=== PATIENT | female | born 1955 | race Caucasian/White ===

== ENCOUNTER 2016-12-21 18:30 | Inpatient (IN) | payer BC ==
--- NOTE | 2016-12-21 18:43 | ED ---
General Adult HPI - General Stated complaint: NVD Time Seen by Provider: 12/21/16 18:37 Source: RN notes reviewed, old records reviewed - History of Present Illness Initial comments: This is a 61-year-old female here for evaluation. The patient is here for reevaluation nausea vomiting abdominal pain. Patient does have history of cholecystectomy, other medical issues. No change in medications. No fevers. No diarrhea. No blood in her vomit. Patient states vomiting all day, not feeling well. No travel history no sick contacts. - Related Data Home Medications Medication Instructions Recorded Confirmed [facility]vs Allergy Medication Otc 1 tab PO DAILY 12/21/16 12/21/16 Ferrous Sulfate [Feosol] 325 mg PO DAILY 12/21/16 12/21/16 Losartan [Cozaar] 50 mg PO DAILY 12/21/16 12/21/16 Vitamin B Complex 1 cap PO DAILY 12/21/16 12/21/16 Allergies Allergy/AdvReac Type Severity Reaction Status Date / Time No Known Allergies Allergy Verified 12/21/16 18:56 Review of Systems ROS Statement: Those systems with pertinent positive or pertinent negative responses have been documented in the HPI. ROS Other: All systems not noted in ROS Statement are negative. Past Medical History Past Medical History: Cancer, Hypertension, Osteoarthritis (OA) Additional Past Medical History / Comment(s): BASAL CELL CA. History of Any Multi-Drug Resistant Organisms: None Reported Past Surgical History: Cholecystectomy, Joint Replacement, Tonsillectomy Additional Past Surgical History / Comment(s): BILATERAL KNEE REPLACED. JAW SURGERY. Past Anesthesia/Blood Transfusion Reactions: Motion Sickness, Postoperative Nausea & Vomiting (PONV) Smoking Status: Former smoker Past Alcohol Use History: None Reported Past Drug Use History: None Reported General Exam General appearance: alert, in no apparent distress Head exam: Present: atraumatic, normocephalic, normal inspection Eye exam: Present: normal appearance, PERRL, EOMI. Absent: scleral icterus, conjunctival injection, periorbital swelling ENT exam: Present: normal exam, mucous membranes moist Neck exam: Present: normal inspection. Absent: tenderness, meningismus, lymphadenopathy Respiratory exam: Present: normal lung sounds bilaterally. Absent: respiratory distress, wheezes, rales, rhonchi, stridor Cardiovascular Exam: Present: regular rate, normal rhythm, normal heart sounds. Absent: systolic murmur, diastolic murmur, rubs, gallop, clicks GI/Abdominal exam: Present: soft, normal bowel sounds. Absent: distended, tenderness, guarding, rebound, rigid Extremities exam: Present: normal inspection, full ROM, normal capillary refill. Absent: tenderness, pedal edema, joint swelling, calf tenderness Back exam: Present: normal inspection Neurological exam: Present: alert, oriented X3, CN II-XII intact Psychiatric exam: Present: normal affect, normal mood Skin exam: Present: warm, dry, intact, normal color. Absent: rash Course Vital Signs 12/21/16 18:44 Temperature 97.0 F L Pulse Rate 88 Respiratory 18 Rate Blood Pressure 106/78 O2 Sat by Pulse 99 Oximetry - Reevaluation(s) Reevaluation #1: 12/21/16 20:14 patient's pain is improved, nausea persists EKG Findings - EKG Comments: EKG Findings:: EKG shows normal sinus rhythm rate of 69, MO 132, QRS 80, QTC 426 Medical Decision Making - Medical Decision Making 61 female ER for evaluation abdominal pain with nausea and vomiting, positive small bowel obstruction, patient will be admitted for surgical consult and evaluation, patient is unsure of surgeon who performed prior surgery. - Lab Data Result diagrams: 12/21/16 18:34 12/21/16 18:34 Lab Results 12/21/16 12/21/16 12/21/16 Range/Units 18:34 18:34 18:34 WBC 15.5 H (3.8-10.6) k/uL RBC 5.47 H (3.80-5.40) m/uL Hgb 17.0 H (11.4-16.0) gm/dL Hct 51.5 H (34.0-46.0) % MCV 94.2 (80.0-100.0) fL MCH 31.2 (25.0-35.0) pg MCHC 33.1 (31.0-37.0) g/dL RDW 13.3 (11.5-15.5) % Plt Count 433 (150-450) k/uL PT (9.0-12.0) sec INR (<1.1) APTT (22.0-30.0) sec Sodium 141 (137-145) mmol/L Potassium 5.2 H (3.5-5.1) mmol/L Chloride 104 (98-107) mmol/L Carbon Dioxide 22 (22-30) mmol/L Anion Gap 15 mmol/L BUN 23 H (7-17) mg/dL Creatinine 0.99 (0.52-1.04) mg/dL Est GFR (MDRD) Af Amer >60 (>60 ml/min/1.73 sqM) Est GFR (MDRD) Non-Af 57 (>60 ml/min/1.73 sqM) Glucose 142 H (74-99) mg/dL Plasma Lactic Acid Raymond (0.7-2.0) mmol/L Calcium 9.6 (8.4-10.2) mg/dL Phosphorus 3.9 (2.5-4.5) mg/dL Magnesium 1.8 (1.6-2.3) mg/dL Total Bilirubin 0.8 (0.2-1.3) mg/dL AST 151 H (14-36) U/L ALT 145 H (9-52) U/L Alkaline Phosphatase 103 (38-126) U/L Total Creatine Kinase 45 (30-135) U/L CK-MB (CK-2) 1.1 (0.0-2.4) ng/mL CK-MB (CK-2) Rel Index 2.4 Troponin I <0.012 (0.000-0.034) ng/mL Total Protein 7.6 (6.3-8.2) g/dL Albumin 4.6 (3.5-5.0) g/dL 12/21/16 12/21/16 Range/Units 18:34 18:34 WBC (3.8-10.6) k/uL RBC (3.80-5.40) m/uL Hgb (11.4-16.0) gm/dL Hct (34.0-46.0) % MCV (80.0-100.0) fL MCH (25.0-35.0) pg MCHC (31.0-37.0) g/dL RDW (11.5-15.5) % Plt Count (150-450) k/uL PT 9.9 (9.0-12.0) sec INR 1.0 (<1.1) APTT 21.0 L (22.0-30.0) sec Sodium (137-145) mmol/L Potassium (3.5-5.1) mmol/L Chloride (98-107) mmol/L Carbon Dioxide (22-30) mmol/L Anion Gap mmol/L BUN (7-17) mg/dL Creatinine (0.52-1.04) mg/dL Est GFR (MDRD) Af Amer (>60 ml/min/1.73 sqM) Est GFR (MDRD) Non-Af (>60 ml/min/1.73 sqM) Glucose (74-99) mg/dL Plasma Lactic Acid Raymond 3.9 H* (0.7-2.0) mmol/L Calcium (8.4-10.2) mg/dL Phosphorus (2.5-4.5) mg/dL Magnesium (1.6-2.3) mg/dL Total Bilirubin (0.2-1.3) mg/dL AST (14-36) U/L ALT (9-52) U/L Alkaline Phosphatase (38-126) U/L Total Creatine Kinase (30-135) U/L CK-MB (CK-2) (0.0-2.4) ng/mL CK-MB (CK-2) Rel Index Troponin I (0.000-0.034) ng/mL Total Protein (6.3-8.2) g/dL Albumin (3.5-5.0) g/dL - Radiology Data Radiology results: report reviewed (CT abdomen and pelvis was positive for small bowel obstruction), image reviewed Disposition Clinical Impression: Dehydration, SBO (small bowel obstruction) Disposition: ADMITTED IP TO THIS [facility] Condition: Fair Referrals: Aditya Hernandez MD [STAFF PHYSICIAN] - 1-2 days
[2016-12-21] MEDS ORDERED: MORPHINE SULFATE 4 MG/ML SYRINGE IV STA (18:49)
[2016-12-21] MEDS ORDERED: SODIUM CHLORIDE 0.9% 500 ML IV STA (18:49)
[2016-12-21] MEDS ORDERED: ONDANSETRON 4 MG/2 ML VIAL IVP STA (18:49)
[2016-12-21] MEDS ORDERED: PANTOPRAZOLE 40 MG/10 ML VIAL IVP STA (18:50)
[2016-12-21] MEDS ORDERED: RX INFO: IV CONTRAST WAS GIVEN 1 EACH MISC MISCELLANE PRN (18:50)
[2016-12-21] MEDS: SODIUM CHLORIDE 0.9% 1,000 ML IV STA (18:57)
[2016-12-21 19:22] LABS: ALT 145 U/L (9-52); AST 151 U/L (14-36); Alkaline Phosphatase 103 U/L (38-126); Anion Gap 15 mmol/L; Blood Urea Nitrogen 23 mg/dL (7-17); Calcium 9.6 mg/dL (8.4-10.2); Carbon Dioxide 22 mmol/L (22-30); Chloride 104 mmol/L (98-107); Glucose 142 mg/dL (74-99); Magnesium 1.8 mg/dL (1.6-2.3); Non-African American GFR(MDRD) 57 (>60 ml/min/1.73 sqM); Phosphorous 3.9 mg/dL (2.5-4.5); Potassium 5.2 mmol/L (3.5-5.1); Sodium 141 mmol/L (137-145); Total Bilirubin 0.8 mg/dL (0.2-1.3); Total Protein 7.6 g/dL (6.3-8.2)
[2016-12-21 19:36] LABS: Creatine Kinase 45 U/L (30-135)
[2016-12-21 19:39] LABS: CH 30.1; HCT 51.5 % (34.0-46.0); HDW 2.05; Immature Gran Flag Marked; MCH 31.2 pg (25.0-35.0); MCHC 33.1 g/dL (31.0-37.0); MCV 94.2 fL (80.0-100.0); Mean Platelet Volume 7.2; RBC 5.47 m/uL (3.80-5.40); RDW 13.3 % (11.5-15.5); WBC 15.5 k/uL (3.8-10.6)
[2016-12-21 19:41] LABS: Prothrombin Time 9.9 sec (9.0-12.0)
[2016-12-21 19:48] LABS: Creatine Kinase MB 1.1 ng/mL (0.0-2.4); Troponin I <0.012 ng/mL (0.000-0.034)
--- NOTE | 2016-12-21 19:52 | CT ---
EXAMINATION TYPE: CT abdomen pelvis w con DATE OF EXAM: 12/21/2016 7:32 PM COMPARISON: NONE HISTORY: Nausea and vomiting today. CT DLP: 728.60 mGycm Automated exposure control for dose reduction was used. TECHNIQUE: Helical acquisition of images was performed from the lung bases through the pelvis. CONTRAST: Performed without Oral Contrast and with IV Contrast, patient injected with 100 mL of Omnipaque 300. FINDINGS: The lung bases are clear. There is no pleural effusion. Heart size is normal. Liver spleen pancreas appear normal. There are clips from cholecystectomy. There is no adrenal mass. Kidneys show satisfactory contrast opacification. There is no hydronephrosis. There are multiple dist ended fluid-filled loops of small bowel in the mid abdomen. There is some dilation of the ileum with fecal material. Small bowel measures up to 4 cm. There is some wall thickening involving the terminal ileum extending to the ileocecal valve. The most distal terminal ileum is not dilated. There is a sh ort segment of narrowing involving the distal ileum that is approximately 5 cm from the ileocecal óscar ve. The bony structures appear intact. 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 There is no signi ficant spondylolisthesis. IMPRESSION: THERE IS EVIDENCE OF A MECHANICAL DISTAL SMALL BOWEL OBSTRUCTION. THERE IS EVIDENCE OF A STRICTURE OF THE DISTAL ILEUM BEST SEEN ON THE CORONAL IMAGE 37. THERE IS DISTAL ILEUM WALL THICKENING THAT COULD RELATE TO INFLAMMATORY BOWEL DISEASE. FOLLOW-UP IS RECOMMENDED. APPENDIX IS NOT SEEN. THERE IS NO SI GN OF APPENDICITIS.
[2016-12-21 20:09] LABS: Add Differential Manual Differential
[2016-12-21 20:12] LABS: Nucleated Red Blood Cells 0 /100 WBC (0-0); Total Cells Counted 100
[2016-12-21] MEDS ORDERED: MORPHINE SULFATE 4 MG/ML SYRINGE IVP PRN (20:12)
[2016-12-21] MEDS ORDERED: MORPHINE SULFATE 4 MG/ML SYRINGE IVP STA (20:12)
[2016-12-21] MEDS ORDERED: ONDANSETRON 4 MG/2 ML VIAL IVP PRN (20:12)
[2016-12-21 20:13] LABS: Manual Review Performed; RBC Morphology Normal
[2016-12-21] MEDS ORDERED: SODIUM CHLORIDE 0.9% 1,000 ML IV ONE (20:14)
[2016-12-22 06:55] LABS: Appearance,Urine Clear (Clear); Bilirubin,Urine Negative (Negative); Glucose,Urine (UA) Negative (Negative); Ketones,Urine Negative (Negative); Leukocyte Esterase,Urine Negative (Negative); Mucus,Urine Rare /hpf; Nitrite,Urine Negative (Negative); Particle Count 4768; Protein,Urine Trace (Negative); RBC,Urine 4 /hpf (0-5); Specific Gravity,Urine 1.025 (1.001-1.035); Squamous Epithelial Cell,Urine 1 /hpf (0-4); UA Billing (MACRO vs. MICRO) MICRO; Urobilinogen,Urine <2.0 mg/dL (<2.0); WBC,Urine 1 /hpf (0-5)
[2016-12-22] MEDS: PANTOPRAZOLE 40 MG/10 ML VIAL IVP SCH (07:46)
[2016-12-22] MEDS ORDERED: ACETAMINOPHEN TAB 325 MG TAB PO PRN (14:07)
--- NOTE | 2016-12-22 14:25 | P.GSCN ---
History of Present Illness Consult date: 12/22/16 Reason for Consult: Abdominal pain, nausea vomiting History of present illness: The patient's a 61-year-old female who began feeling poorly yesterday morning when she woke. She had very bloated and then developed nausea and vomiting. No fevers or chills. No recent change in bowel habits. She does tend to have loose stools. This is been worked up in the past and she had EGD and colonoscopy which were unremarkable. She's never had anything like this in the past. Through the night she had several bowel movements and is feeling much better today. The only previous abdominal surgery was a laparoscopic cholecystectomy. Review of Systems All systems: negative Past Medical History Past Medical History: Cancer, Hypertension, Osteoarthritis (OA) Additional Past Medical History / Comment(s): BASAL CELL CA. History of Any Multi-Drug Resistant Organisms: None Reported Past Surgical History: Cholecystectomy, Joint Replacement, Tonsillectomy Additional Past Surgical History / Comment(s): BILATERAL KNEE REPLACED. JAW SURGERY. Past Anesthesia/Blood Transfusion Reactions: Motion Sickness, Postoperative Nausea & Vomiting (PONV) Past Psychological History: No Psychological Hx Reported Smoking Status: Former smoker Past Alcohol Use History: None Reported Past Drug Use History: None Reported - Past Family History Mother Family Medical History: Dementia Medications and Allergies Home Medications Medication Instructions Recorded Confirmed Type [facility]vs Allergy Medication Otc 1 tab PO DAILY 12/21/16 12/21/16 History Ferrous Sulfate [Feosol] 325 mg PO DAILY 12/21/16 12/21/16 History Losartan [Cozaar] 50 mg PO DAILY 12/21/16 12/21/16 History Vitamin B Complex 1 cap PO DAILY 12/21/16 12/21/16 History Allergies Allergy/AdvReac Type Severity Reaction Status Date / Time No Known Allergies Allergy Verified 12/21/16 18:56 Surgical - Exam Osteopathic Statement: *. No significant issues noted on an osteopathic structural exam other than those noted in the History and Physical/Consult. Vital Signs Temp Pulse Resp BP Pulse Ox 97.0 F L 88 18 106/78 99 12/21/16 18:44 12/21/16 18:44 12/21/16 18:44 12/21/16 18:44 12/21/16 18:44 - General well developed, well nourished, no distress - Eyes normal ocular movement - ENT normal mucosa - Neck trachea midline, no lymphadectomy - Respiratory normal respiratory effort, clear to auscultation absent: wheezing - Cardiovascular Rhythm: regular - Abdomen Abdomen: soft, non tender, bowel sounds, no guarding, no rigid, no rebound, no distended Results - Labs 12/21/16 18:34 12/21/16 18:34 Abnormal Lab Results - Last 24 Hours (Table) 12/21/16 12/21/16 12/21/16 Range/Units 18:34 18:34 18:34 WBC 15.5 H (3.8-10.6) k/uL RBC 5.47 H (3.80-5.40) m/uL Hgb 17.0 H (11.4-16.0) gm/dL Hct 51.5 H (34.0-46.0) % Neutrophils # (Manual) 13.8 H (1.3-7.7) k/uL Lymphocytes # (Manual) 0.5 L (1.0-4.8) k/uL Monocytes # (Manual) 1.2 H (0-1.0) k/uL APTT (22.0-30.0) sec Potassium 5.2 H (3.5-5.1) mmol/L BUN 23 H (7-17) mg/dL Glucose 142 H (74-99) mg/dL Plasma Lactic Acid Raymond 3.9 H* (0.7-2.0) mmol/L AST 151 H (14-36) U/L ALT 145 H (9-52) U/L Urine Protein (Negative) Urine Blood (Negative) Urine Mucus (None) /hpf 12/21/16 12/22/16 Range/Units 18:34 05:50 WBC (3.8-10.6) k/uL RBC (3.80-5.40) m/uL Hgb (11.4-16.0) gm/dL Hct (34.0-46.0) % Neutrophils # (Manual) (1.3-7.7) k/uL Lymphocytes # (Manual) (1.0-4.8) k/uL Monocytes # (Manual) (0-1.0) k/uL APTT 21.0 L (22.0-30.0) sec Potassium (3.5-5.1) mmol/L BUN (7-17) mg/dL Glucose (74-99) mg/dL Plasma Lactic Acid Raymond (0.7-2.0) mmol/L AST (14-36) U/L ALT (9-52) U/L Urine Protein Trace H (Negative) Urine Blood Trace H (Negative) Urine Mucus Rare H (None) /hpf Microbiology - Last 24 Hours (Table) 12/22/16 05:50 Urine Culture - Preliminary Urine,Voided Diabetes panel 12/21/16 Range/Units 18:34 Sodium 141 (137-145) mmol/L Potassium 5.2 H (3.5-5.1) mmol/L Chloride 104 (98-107) mmol/L Carbon Dioxide 22 (22-30) mmol/L BUN 23 H (7-17) mg/dL Creatinine 0.99 (0.52-1.04) mg/dL Glucose 142 H (74-99) mg/dL Calcium 9.6 (8.4-10.2) mg/dL AST 151 H (14-36) U/L ALT 145 H (9-52) U/L Alkaline Phosphatase 103 (38-126) U/L Total Protein 7.6 (6.3-8.2) g/dL Albumin 4.6 (3.5-5.0) g/dL Calcium panel 12/21/16 Range/Units 18:34 Calcium 9.6 (8.4-10.2) mg/dL Phosphorus 3.9 (2.5-4.5) mg/dL Albumin 4.6 (3.5-5.0) g/dL Pituitary panel 12/21/16 Range/Units 18:34 Sodium 141 (137-145) mmol/L Potassium 5.2 H (3.5-5.1) mmol/L Chloride 104 (98-107) mmol/L Carbon Dioxide 22 (22-30) mmol/L BUN 23 H (7-17) mg/dL Creatinine 0.99 (0.52-1.04) mg/dL Glucose 142 H (74-99) mg/dL Calcium 9.6 (8.4-10.2) mg/dL Adrenal panel 12/21/16 Range/Units 18:34 Sodium 141 (137-145) mmol/L Potassium 5.2 H (3.5-5.1) mmol/L Chloride 104 (98-107) mmol/L Carbon Dioxide 22 (22-30) mmol/L BUN 23 H (7-17) mg/dL Creatinine 0.99 (0.52-1.04) mg/dL Glucose 142 H (74-99) mg/dL Calcium 9.6 (8.4-10.2) mg/dL Total Bilirubin 0.8 (0.2-1.3) mg/dL AST 151 H (14-36) U/L ALT 145 H (9-52) U/L Alkaline Phosphatase 103 (38-126) U/L Total Protein 7.6 (6.3-8.2) g/dL Albumin 4.6 (3.5-5.0) g/dL - Imaging CT scan - abdomen: report reviewed, image reviewed Assessment and Plan (1) SBO (small bowel obstruction) Status: Acute Plan: This appears to be resolving on its own. We'll start her on a clear liquid diet. If she is able to tolerate that we'll advance her to a soft diet in the morning. Further recommendations to follow.
--- NOTE | 2016-12-22 16:52 | P.HPIM ---
History of Present Illness H&P Date: 12/22/16 Chief Complaint: Abdominal pain This is a pleasant 61-year-old lady patient of Dr. Rafi Hernandez, underlying history of hypertension previous cholecystectomy, admitted to the hospital secondary to nausea and vomiting, obstipation, and was noted to be hypotension, she started getting sick one day prior to admission, was noted to have abdominal pain upon awakening with persistent nausea and vomiting thereafter. She was seen in emergency room with oral contrast studies of the abdomen and pelvis showing evidence off mechanical distal small bowel obstruction with evidence of stricture of the distal ileum, distal ileum wall thickening be related to inflammatory bowel disease, patient was subsequently admitted and was placed nothing by mouth with consultations to Dr. Hong general surgery. She was stabilized initially as she presented with hypotension, fluid IV for hydration purposes was given,. Patient denies any sick contacts, creatinine on entry was 0.99, elevated AST 151, elevated ALT 145 normal alkaline phosphatase Review of Systems Constitutional: Reports as per HPI, Denies anorexia, Denies chills, Denies chronic headaches, Denies chronic pain, Denies daytime sleepiness, Denies fatigue, Denies fever, Denies lethargy, Denies malaise, Denies night sweats, Denies poor appetite, Denies sweats, Denies weakness, Denies weight gain, Denies weight loss Ears, nose, mouth and throat: Reports as per HPI, Denies ant. neck pain, Denies bleeding gums, Denies dental pain, Denies dysphagia, Denies epistaxis, Denies headache, Denies hoarseness, Denies mouth pain, Denies nasal congestion, Denies nasal discharge, Denies neck fullness/pressure, Denies neck lump, Denies nose pain, Denies odynophagia, Denies post-nasal drip, Denies sinus pain, Denies sinus pressure, Denies swelling in mouth, Denies swelling in throat, Denies sore throat, Denies vertigo, Denies voice changes Cardiovascular: Reports as per HPI, Denies chest pain, Denies claudication, Denies decreased exercise tolerance, Denies dyspnea on exertion, Denies edema, Denies high blood pressure, Denies irregular heart beat, Denies leg edema, Denies lightheadedness, Denies orthopnea, Denies palpitations, Denies paroxysmal nocturnal dyspnea, Denies phlebitis, Denies rapid heart beat, Denies shortness of breath, Denies syncope Respiratory: Reports as per HPI, Denies congestion, Denies cough, Denies cough with sputum, Denies dyspnea, Denies excessive sputum, Denies hemoptysis, Denies home oxygen, Denies pain, Denies pain on inspiration, Denies pleurisy, Denies respiratory infections, Denies sleep apnea, Denies snoring, Denies wheezing Gastrointestinal: Reports as per HPI, Reports abdominal pain, Reports bloating, Reports change in bowel habits, Reports constipation, Reports indigestion, Reports nausea, Reports vomiting, Denies belching, Denies BRBPR, Denies coffee ground emesis, Denies diarrhea, Denies dyspepsia, Denies early satiety, Denies excessive gas, Denies heartburn, Denies hematemesis, Denies hematochezia, Denies jaundice, Denies lactose intolerance, Denies loss of appetite, Denies melena Genitourinary: Reports as per HPI, Denies abnormal vaginal bleeding, Denies decreased libido, Denies difficulty conceiving, Denies difficulty voiding, Denies dysmenorrhea, Denies dyspareunia, Denies dysuria, Denies flank pain, Denies genital sores, Denies hematuria, Denies hot flashes, Denies incomplete emptying, Denies kidney stones, Denies menorrhagia, Denies mixed incontinence, Denies nocturia, Denies pelvic pain, Denies post void dribbling, Denies , Denies prolapse symptoms, Denies stress incontinence, Denies urge incontinence , Denies urgency, Denies urinary frequency, Denies vaginal discharge, Denies vaginal dryness, Denies vaginal itching, Denies vaginal odor Menstruation: Reports as per HPI, Denies amenorrhea, Denies amenorrhea on BC, Denies currently menstrual, Denies cycle < 21 days, Denies cycle > 35 days, Denies cycle variable, Denies menses 1-7 days, Denies menses 8 or > days, Denies menses variable, Denies period heavy, Denies period light, Denies period normal, Denies period spotting, Denies post hysterectomy, Denies postmenopausal , Denies premenarcheal Musculoskeletal: Reports as per HPI, Denies arm numbness/tingling, Denies atrophy, Denies fractures, Denies frequent falls, Denies gait dysfunction, Denies hot joints, Denies leg numbness/tingling, Denies limitation of motion, Denies loss of height, Denies low back pain, Denies morning stiffness, Denies muscle cramps, Denies muscle weakness, Denies myalgias, Denies neck pain, Denies neck stiffness, Denies prior amputations, Denies redness of joints, Denies shooting arm pain, Denies shooting leg pain Integumentary: Reports as per HPI Neurological: Reports as per HPI, Denies aphasia, Denies ataxia, Denies balance difficulties, Denies burning pain, Denies change in mentation, Denies change in smell/taste, Denies change in speech, Denies confusion, Denies convulsions, Denies double vision, Denies gait dysfunction, Denies head injury, Denies headaches, Denies hearing difficulties, Denies lack of coordination, Denies loss of vision, Denies memory loss, Denies migraines, Denies motor disturbance, Denies numbness, Denies paralysis, Denies paresthesias, Denies seizures, Denies sensory deficit, Denies spasticity, Denies syncope, Denies tic, Denies tingling , Denies transient paralysis, Denies tremors, Denies vertigo, Denies weakness, Denies visual changes Psychiatric: Reports as per HPI, Denies anhedonia, Denies anxiety, Denies anxiety attacks, Denies change in appetite, Denies change in libido, Denies change in sleep habits, Denies confusion, Denies depression, Denies difficulty concentrating, Denies disorientation, Denies hallucinations, Denies hopelessness , Denies hypersomnia, Denies insomnia, Denies irritability, Denies memory loss, Denies mood swings, Denies paranoia, Denies sadness/tearfulness, Denies sleep disturbances, Denies suicidal ideation Endocrine: Reports as per HPI, Denies cold intolerance, Denies deepening of the voice, Denies excessive sweating, Denies excessive thirst, Denies fatigue, Denies flushing, Denies heat intolerance, Denies high blood sugars, Denies increase in ring/shoe/hat size, Denies low blood sugars, Denies nocturia, Denies palpitations, Denies polydipsia, Denies polyphagia, Denies polyuria, Denies proptosis, Denies recent glucocorticoid use, Denies thyroid mass, Denies weight change Hematologic/Lymphatic: Reports as per HPI, Denies easy bleeding, Denies easy bruising, Denies lymphadenopathy, Denies lymphedema, Denies thrombophilia Allergic/Immunologic: Reports as per HPI, Denies allergic rhinitis, Denies anaphylaxis, Denies angioedema, Denies gluten intolerance, Denies persistent infections, Denies seasonal allergies, Denies urticaria, Denies wheezing Past Medical History Past Medical History: Cancer, Hypertension, Osteoarthritis (OA) Additional Past Medical History / Comment(s): BASAL CELL CA. History of Any Multi-Drug Resistant Organisms: None Reported Past Surgical History: Cholecystectomy, Joint Replacement, Tonsillectomy Additional Past Surgical History / Comment(s): BILATERAL KNEE REPLACED. JAW SURGERY. Past Anesthesia/Blood Transfusion Reactions: Motion Sickness, Postoperative Nausea & Vomiting (PONV) Past Psychological History: No Psychological Hx Reported Smoking Status: Former smoker Past Alcohol Use History: None Reported Past Drug Use History: None Reported - Past Family History Mother Family Medical History: Dementia Medications and Allergies Home Medications Medication Instructions Recorded Confirmed Type Cvs Allergy Medication Otc 1 tab PO DAILY 12/21/16 12/21/16 History Ferrous Sulfate [Feosol] 325 mg PO DAILY 12/21/16 12/21/16 History Losartan [Cozaar] 50 mg PO DAILY 12/21/16 12/21/16 History Vitamin B Complex 1 cap PO DAILY 12/21/16 12/21/16 History Allergies Allergy/AdvReac Type Severity Reaction Status Date / Time No Known Allergies Allergy Verified 12/21/16 18:56 Physical Exam Vitals: Vital Signs Temp Pulse Pulse Resp BP BP Pulse Ox 12/22/16 15:00 97.5 F L 73 19 114/58 94 L 12/22/16 07:00 99.1 F 83 19 111/52 95 12/21/16 23:00 97.8 F 83 16 121/71 94 L 12/21/16 21:11 86 18 104/58 97 12/21/16 20:23 77 18 102/68 96 12/21/16 18:44 97.0 F L 88 18 106/78 99 Intake and Output 12/22/16 12/22/16 12/22/16 06:59 14:59 22:59 Other: # Voids 1 2 3 # Bowel Movements 2 - Constitutional General appearance: cooperative, no acute distress - EENT Eyes: anicteric sclerae, EOMI, PERRLA, dentition normal, normal appearance ENT: NA/AT, normal oropharynx - Neck Neck: no lymphadenopathy, normal ROM, no other, no rigidity, no stridor, no thyromegaly - Respiratory Respiratory: bilateral: CTA, negative: diminished, dullness, rales, rhonchi, wheezing - Cardiovascular Rhythm: regular Heart sounds: normal: S1, S2 Abnormal Heart Sounds: no systolic murmur, no diastolic murmur, no rub, no S3 Gallop, no S4 Gallop, no click, no other - Gastrointestinal General gastrointestinal: decreased bowel sounds, soft, tenderness - Integumentary Integumentary: normal, normal turgor - Neurologic Neurologic: CNII-XII intact - Musculoskeletal Musculoskeletal: gait normal, strength equal bilaterally - Psychiatric Psychiatric: A&O x's 3, appropriate affect, intact judgment & insight Results CBC & Chem 7: 12/21/16 18:34 12/21/16 18:34 Labs: Abnormal Lab Results - Last 24 Hours (Table) 12/21/16 12/21/16 12/21/16 Range/Units 18:34 18:34 18:34 WBC 15.5 H (3.8-10.6) k/uL RBC 5.47 H (3.80-5.40) m/uL Hgb 17.0 H (11.4-16.0) gm/dL Hct 51.5 H (34.0-46.0) % Neutrophils # (Manual) 13.8 H (1.3-7.7) k/uL Lymphocytes # (Manual) 0.5 L (1.0-4.8) k/uL Monocytes # (Manual) 1.2 H (0-1.0) k/uL APTT (22.0-30.0) sec Potassium 5.2 H (3.5-5.1) mmol/L BUN 23 H (7-17) mg/dL Glucose 142 H (74-99) mg/dL Plasma Lactic Acid Raymond 3.9 H* (0.7-2.0) mmol/L AST 151 H (14-36) U/L ALT 145 H (9-52) U/L Urine Protein (Negative) Urine Blood (Negative) Urine Mucus (None) /hpf 12/21/16 12/22/16 Range/Units 18:34 05:50 WBC (3.8-10.6) k/uL RBC (3.80-5.40) m/uL Hgb (11.4-16.0) gm/dL Hct (34.0-46.0) % Neutrophils # (Manual) (1.3-7.7) k/uL Lymphocytes # (Manual) (1.0-4.8) k/uL Monocytes # (Manual) (0-1.0) k/uL APTT 21.0 L (22.0-30.0) sec Potassium (3.5-5.1) mmol/L BUN (7-17) mg/dL Glucose (74-99) mg/dL Plasma Lactic Acid Raymond (0.7-2.0) mmol/L AST (14-36) U/L ALT (9-52) U/L Urine Protein Trace H (Negative) Urine Blood Trace H (Negative) Urine Mucus Rare H (None) /hpf Microbiology - Last 24 Hours (Table) 12/22/16 05:50 Urine Culture - Preliminary Urine,Voided Thrombosis Risk Factor Assmnt - DVT/VTE Prophylaxis DVT/VTE Prophylaxis: Pharmacologic Prophylaxis ordered - Choose All That Apply Any of the Below Risk Factors Present?: Yes Each Factor Represents 1 point: Varicose veins Other Risk Factors: Yes Each Risk Factor Represents 2 Points: Age 61-74 years Other congenital or acquired thrombophilia - If yes, enter type in comment: No Thrombosis Risk Factor Assessment Total Risk Factor Score: 3 Thrombosis Risk Factor Assessment Level: Moderate Risk Assessment and Plan Plan: 1. Abdominal pain with small bowel obstruction involving a mechanical distal small bowel obstruction with evidence of strictures of the distal ileum with possible inflammatory bowel disease, no signs of appendicitis, conservative measures treatment made at this time, she has shown spontaneous resolution of abdominal distention and abdominal pain, bowel movements and flat this has been passed since her admission. no plans for general surgery to receive with any surgical intervention unless she decompensates further, investigation her last colonoscopy was in [address] Ortiz. 2. Evidence of stricture at the distal ileum with distal ileal wall thickening could be related to inflammatory bowel disease, colonoscopy can be done to evaluate this further once stabilized 3. Hypotension with dehydration, hemodynamic instability secondary to upper GI losses, patient requires IV hydration and he stabilized 4. Hypertension losartan is on hold secondary to hypotension. Losartan in the morning 5. Elevated liver function AST and ALT, with normal alkaline phosphatase test this will be monitored, patient might need hepatitis panel
[2016-12-22] MEDS: ENOXAPARIN 40 MG/0.4 ML SYRINGE SQ SCH (17:33)
[2016-12-23 07:35] VITALS: PULSE 69
[2016-12-23 08:38] LABS: Basophils % (A) 0 %; CH 30.4; CHCM 32.9; Eosinophils # (A) 0.1 k/uL (0-0.7); Eosinophils % (A) 3 %; HDW 2.19; Luc # (Auto) 0.13; Luc % (Auto) 3; Lymphocytes % (A) 19 %; MCH 30.5 pg (25.0-35.0); MCHC 32.8 g/dL (31.0-37.0); MCV 92.9 fL (80.0-100.0); Mean Platelet Volume 6.5; Monocytes # (A) 0.3 k/uL (0-1.0); Monocytes % (A) 7 %; Neutrophils # (A) 3.5 k/uL (1.3-7.7); Neutrophils % (A) 69 %; RBC 3.77 m/uL (3.80-5.40); RDW 13.3 % (11.5-15.5); WBC 5.1 k/uL (3.8-10.6); WBC (Perox) 5.44
[2016-12-23 08:39] LABS: HGB 11.5 gm/dL (11.4-16.0)
[2016-12-23 08:48] LABS: ALT 57 U/L (9-52); AST 23 U/L (14-36); Alkaline Phosphatase 51 U/L (38-126); Anion Gap 7 mmol/L; Blood Urea Nitrogen 11 mg/dL (7-17); Carbon Dioxide 20 mmol/L (22-30); Chloride 112 mmol/L (98-107); Glucose 70 mg/dL (74-99); Non-African American GFR(MDRD) >60 (>60 ml/min/1.73 sqM); Potassium 3.8 mmol/L (3.5-5.1); Sodium 139 mmol/L (137-145); Total Bilirubin 0.5 mg/dL (0.2-1.3); Total Protein 4.9 g/dL (6.3-8.2)
[2016-12-23] MEDS ORDERED: LOSARTAN 50 MG TAB PO SCH (09:00)
[2016-12-23] MEDS: PANTOPRAZOLE 40 MG/10 ML VIAL IVP SCH (09:04)
[2016-12-23] MEDS: ENOXAPARIN 40 MG/0.4 ML SYRINGE SQ SCH (09:04)
--- NOTE | 2016-12-23 10:14 | P.PN ---
Subjective Principal diagnosis: small bowel obstruction The patient is feeling much better. No further nausea or vomiting. She is stooling, and is passing corn kernels. Has been worked up for possible IBD, but was felt to be too old for new onset crohns disease. Objective - Vital Signs Vital signs: Vital Signs Temp 97.2 F L 12/23/16 07:00 Pulse 69 12/23/16 07:00 Resp 18 12/23/16 07:00 BP 124/65 12/23/16 07:00 Pulse Ox 96 12/23/16 07:00 Intake & Output 12/22/16 12/23/16 12/23/16 18:59 06:59 18:59 Other: # Voids 3 1 # Bowel Movements 1 - Constitutional General appearance: Present: cooperative, no acute distress - Gastrointestinal General gastrointestinal: Present: normal bowel sounds, soft, tenderness (mild nonspecific). Absent: distended - Labs CBC & Chem 7: 12/23/16 07:54 12/23/16 07:54 Labs: Abnormal Lab Results - Last 24 Hours (Table) 12/23/16 12/23/16 Range/Units 07:54 07:54 RBC 3.77 L (3.80-5.40) m/uL Chloride 112 H (98-107) mmol/L Carbon Dioxide 20 L (22-30) mmol/L Glucose 70 L (74-99) mg/dL Calcium 8.0 L (8.4-10.2) mg/dL ALT 57 H (9-52) U/L Total Protein 4.9 L (6.3-8.2) g/dL Albumin 2.6 L (3.5-5.0) g/dL Microbiology - Last 24 Hours (Table) 12/22/16 05:50 Urine Culture - Preliminary Urine,Voided Assessment and Plan (1) SBO (small bowel obstruction) Status: Acute (2) Abnormal CT of the abdomen Status: Acute Plan: Soft/low fiber diet. Will order fecal lactoferrin and calprotectin for possible crohns disease. GI evaluation. Currently nonsurgical
[2016-12-23 11:58] LABS: Glucose,Whole Blood 82 mg/dL (75-99)
--- NOTE | 2016-12-23 12:51 | P.CONS ---
History of Present Illness - Reason for Consult Consult date: 12/23/16 IBD evaluation - History of Present Illness 61-year-old female with a history of anemia, laparoscopic cholecystectomy and chronic abdominal discomfort with diarrhea/stools for several years presents with acute abdominal pain with CT imaging reporting mechanical distal small bowel obstruction. No history of small bowel obstructions or abdominal surgeries with the exception of laparoscopic cholecystectomy. She was evaluated for loose bowel movements and anemia in June 2014 with colonoscopy reported as normal. EGD July 2014 reported no evidence of bleeding or abnormalities. Biopsies negative for H. pylori. No evidence of inflammatory bowel disease. Patient has had chronic loose bowel movements for several years with intermittent crampy abdominal discomfort. No history of personal or familial inflammatory bowel diseases. No weight loss. Denies hematemesis hematochezia or melena. Review of Systems Constitutional: Denies fever, chills, sweats, weight gain, or loss. HEENT: Negative for migraines, blurred vision or loss, earaches, drainage, tinnitus, oral mucosal lesions, dysphagia, or odynophagia. CARDIAC: Hypertension. Negative for chest pain, arrhythmias, or palpitation. RESPIRATORY: Negative for shortness of breath, hemoptysis, cough, or sputum production. GI: See HPI for pertinent findings. : Negative for hematuria, urgency, frequency, polyuria, or dysuria. GYNc: Denies possibility of . Negative vaginal discharge. MUSCULOSKELETAL: Negative for muscle aches, swelling, arthritis, and arthralgias. NEUROLOGIC: Negative for stroke or TIA. ENDOCRINE: Negative for thyroid problems. SKIN: Skin carcinoma Negative for rash or itching. PSYCHIATRIC: Negative history for depression and anxiety All systems: negative (See HPI) Past Medical History Past Medical History: Cancer, Hypertension, Osteoarthritis (OA) Additional Past Medical History / Comment(s): BASAL CELL CA. History of Any Multi-Drug Resistant Organisms: None Reported Past Surgical History: Cholecystectomy, Joint Replacement, Tonsillectomy Additional Past Surgical History / Comment(s): BILATERAL KNEE REPLACED. JAW SURGERY. Past Anesthesia/Blood Transfusion Reactions: Motion Sickness, Postoperative Nausea & Vomiting (PONV) Past Psychological History: No Psychological Hx Reported Smoking Status: Former smoker Past Alcohol Use History: None Reported Past Drug Use History: None Reported - Past Family History Mother Family Medical History: Dementia Medications and Allergies Home Medications Medication Instructions Recorded Confirmed Type Cvs Allergy Medication Otc 1 tab PO DAILY 12/21/16 12/21/16 History Ferrous Sulfate [Feosol] 325 mg PO DAILY 12/21/16 12/21/16 History Losartan [Cozaar] 50 mg PO DAILY 12/21/16 12/21/16 History Vitamin B Complex 1 cap PO DAILY 12/21/16 12/21/16 History Allergies Allergy/AdvReac Type Severity Reaction Status Date / Time No Known Allergies Allergy Verified 12/21/16 18:56 Physical Exam Vitals: Vital Signs Temp Pulse Resp BP Pulse Ox 12/23/16 07:00 97.2 F L 69 18 124/65 96 12/22/16 23:00 97.8 F 76 16 123/83 96 12/22/16 15:00 97.5 F L 73 19 114/58 94 L Intake and Output 12/22/16 12/23/16 12/23/16 22:59 06:59 14:59 Other: # Voids 2 1 1 # Bowel Movements 1 General appearance: The patient is alert, oriented, in no acute distress. HET: Head is normocephalic and atraumatic. Pupils are equal and reactive. Oropharynx is clear without lesions. Neck: Supple without lymphadenopathy. Trachea midline. Heart: S1 S2. Regular rate and rhythm. Lungs: No crackles or wheezes are heard. Abdomen: Soft, nontender, nondistended with bowel sounds. No peritoneal signs. No palpable organomegaly or masses. Extremities: Normal skin color and turgor. No cyanosis, rash, ulceration, clubbing, or edema. Radial and pedal pulses are 2/4 bilaterally. Neurological: No focal deficits. Strength and sensation are grossly intact. Results CBC & Chem 7: 12/23/16 07:54 12/23/16 07:54 Labs: Abnormal Lab Results - Last 24 Hours (Table) 12/23/16 12/23/16 Range/Units 07:54 07:54 RBC 3.77 L (3.80-5.40) m/uL Chloride 112 H (98-107) mmol/L Carbon Dioxide 20 L (22-30) mmol/L Glucose 70 L (74-99) mg/dL Calcium 8.0 L (8.4-10.2) mg/dL ALT 57 H (9-52) U/L Total Protein 4.9 L (6.3-8.2) g/dL Albumin 2.6 L (3.5-5.0) g/dL Microbiology - Last 24 Hours (Table) 12/22/16 05:50 Urine Culture - Preliminary Urine,Voided CT scan - abdomen: report reviewed (Reviewed by Dr. Ortiz) Assessment and Plan (1) SBO (small bowel obstruction) Narrative/Plan: 61-year-old female presents with acute mechanical distal small bowel obstruction of unclear etiology with resolution. History of anemia and diarrhea in the past with EGD colonoscopy June 2014/July 2014 no evidence of active bleeding or evidence of inflammatory bowel disease. Chronic symptoms of loose bowel movements for several years and intermittent abdominal discomfort could be suggestive of possible irritable bowel disease (IBS) however recent computed tomography scan abdomen and pelvis cannot exclude entirely underlying inflammatory bowel disease. Status: Acute Plan: 1. SBO has resolved patient has been challenged with diet and tolerating well. 2. From a GI standpoint discharge per medicine 3. Return to GI office in 1-2 weeks for reevaluation. Recommend outpatient small bowel follow-through. Further workup and repeat endoscopy will be decided in office. Thank you for this kind referral and the opportunity to participate in the care of your patient. This consultation was discussed with Dr. Ortiz. The impression and plan of care have been directed as dictated.
--- NOTE | 2016-12-23 14:36 | P.DS ---
Providers Date of admission: 12/21/16 20:14 Expected date of discharge: 12/23/16 Attending physician: Mckenna Dhaliwal Consults: 12/21/16 20:31 Consult Physician Urgent Consulting Provider: Jina Hong Consult Reason/Comments: sbo Do you want consulting provider notified?: Yes 12/23/16 10:07 Consult Physician Routine Consulting Provider: Carole Ortiz Consult Reason/Comments: possible crohns disease Do you want consulting provider notified?: Yes Primary care physician: Mak Hernandez [facility] Course: This is a pleasant 61-year-old lady patient of Dr. Rafi Hernandez, underlying history of hypertension previous cholecystectomy, admitted to the hospital secondary to nausea and vomiting, obstipation, and was noted to be hypotension, she started getting sick one day prior to admission, was noted to have abdominal pain upon awakening with persistent nausea and vomiting thereafter. She was seen in emergency room with oral contrast studies of the abdomen and pelvis showing evidence off mechanical distal small bowel obstruction with evidence of stricture of the distal ileum, distal ileum wall thickening be related to inflammatory bowel disease, patient was subsequently admitted and was placed nothing by mouth with consultations to Dr. Hong general surgery. She was stabilized initially as she presented with hypotension, fluid IV for hydration purposes was given,. Patient denies any sick contacts, creatinine on entry was 0.99, elevated AST 151, elevated ALT 145 normal alkaline phosphatase 12/23: Patient has been evaluated by Dr. Hong and Dr. Ochoa with plan for outpatient follow-up. Patient is currently tolerating a diet. She denies any abdominal cramping no diarrhea. She states she feels much better. Patient is being discharged home on Cipro and Flagyl and follow up with general surgery and GI. Discharge diagnoses: 1. Abdominal pain with small bowel obstruction involving a mechanical distal small bowel obstruction with evidence of strictures of the distal ileum with possible inflammatory bowel disease, 2. Evidence of stricture at the distal ileum with distal ileal wall thickening could be related to inflammatory bowel disease 3. Hypotension with dehydration 4. Hypertension 5. Elevated liver function AST and ALT, with normal alkaline phosphatase Discharge plan: Home Impression and plan of care have been directed as dictated by the signing physician. Gabbie Castillo nurse practitioner acting as scribe for signing physician. Cc: Dr. Mak Hernandez Patient Condition at Discharge: Good Plan - Discharge Summary New Discharge Prescriptions: Ciprofloxacin HCl [Cipro] 500 mg PO Q12HR #20 tablet metroNIDAZOLE [Flagyl] 500 mg PO TID #30 tab Discharge Medication List [facility]vs Allergy Medication Otc 1 tab PO DAILY 12/21/16 [History] Ferrous Sulfate [Iron (65 MG Elemental)] 325 mg PO DAILY 12/21/16 [History] Losartan [Cozaar] 50 mg PO DAILY 12/21/16 [History] Vitamin B Complex 1 cap PO DAILY 12/21/16 [History] Ciprofloxacin HCl [Cipro] 500 mg PO Q12HR #20 tablet 12/23/16 [Rx] metroNIDAZOLE [Flagyl] 500 mg PO TID #30 tab 12/23/16 [Rx] Follow up Appointment(s)/Referral(s): Richard Ochoa MD [STAFF PHYSICIAN] - 01/09/17 12:30 pm Jina Hong DO [Doctor of Osteopathic Medicine] - 2 Weeks Mak Hernandez MD [Primary Care Provider] - 12/30/16 11:30 am Patient Instructions/Handouts: Bowel Obstruction (DC) Activity/Diet/Wound Care/Special Instructions: Soft Diet Discharge Disposition: HOME SELF-CARE
[2016-12-23 15:01] VITALS: BP 111/72; RESP 19; TEMP 97
== END 2016-12-23 16:38 | disposition home or self-care (01) | DRG 390 ==
LOC: EC 18:30 → 4MS4W 20:14
PROVIDERS: ADMIT Internal Medicine; ATTEND Internal Medicine
DX: K56.60 Unspecified intestinal obstruction (principal); I95.9 Hypotension, unspecified; E86.0 Dehydration; I10 Essential (primary) hypertension; K52.9 Noninfective gastroenteritis and colitis, unspecified; M19.91 Primary osteoarthritis, unspecified site; Z96.653 Presence of artificial knee joint, bilateral; Z90.49 Acquired absence of other specified parts of digestive tract; Z87.891 Personal history of nicotine dependence; Z85.828 Personal history of other malignant neoplasm of skin; Z79.899 Other long term (current) drug therapy
CPT/HCPCS: 36415; 74177; 80053; 81001; 82550; 82553; 83605; 83735; 84100; 84484; 85025; 85610; 85730; 87086; 93005; 96361; 96374; 96375; 96376; 99285

== ENCOUNTER 2017-04-14 03:58 | Emergency (ER) | payer BC, OTHER ==
[2017-04-14] MEDS ORDERED: ONDANSETRON 4 MG/2 ML VIAL IVP STA ×2 (04:34→07:02)
[2017-04-14] MEDS ORDERED: MORPHINE SULFATE 4 MG/ML SYRINGE IV STA (04:34)
[2017-04-14] MEDS ORDERED: SODIUM CHLORIDE 0.9% 1,000 ML IV STA (04:34)
--- NOTE | 2017-04-14 04:43 | ED ---
Nausea/Vomiting/Diarrhea HPI - General Chief complaint: Nausea/Vomiting/Diarrhea Stated complaint: Vomiting Time Seen by Provider: 04/14/17 04:23 Source: patient Mode of arrival: ambulatory Limitations: no limitations - History of Present Illness Initial comments: This patient is a 62-year-old woman presenting to be evaluated for vomiting that started yesterday in the morning, now nearly 24 hours ago. The patient states that she has had multiple episodes of vomiting and she states that she has not been able to eat or drink anything without having vomiting shortly thereafter. The patient states that she is not having much abdominal pain. She states she did have a bowel movement yesterday without seeing any blood or dark tarry stool. She denies any change in urination. She had similar symptoms 3-4 months ago and was told that she had a small bowel obstruction that resolved without requiring surgery. MD complaint: nausea, vomiting Onset/Timin -: days(s) Description of Vomiting: bilious Associated Abdominal Pain: No Consistency: constant Improves with: none Worsens with: eating Associated Symptoms: denies other symptoms - Related Data Home Medications Medication Instructions Recorded Confirmed Cvs Allergy Medication Otc 1 tab PO DAILY 12/21/16 04/14/17 Losartan [Cozaar] 50 mg PO DAILY 12/21/16 04/14/17 L.acidoph,Paracasei, B.lactis 1 cap PO DAILY 04/14/17 04/14/17 [Probiotic] Multivitamins, Thera [Multivitamin 1 tab PO DAILY 04/14/17 04/14/17 (formulary)] Previous Rx's Medication Instructions Recorded Dicyclomine [Bentyl] 20 mg PO QID #15 tablet 04/14/17 Ondansetron Odt [Zofran ODT] 4 mg PO Q8HR PRN #10 tab 04/14/17 Allergies Allergy/AdvReac Type Severity Reaction Status Date / Time No Known Allergies Allergy Verified 04/14/17 07:21 Review of Systems ROS Statement: Those systems with pertinent positive or pertinent negative responses have been documented in the HPI. ROS Other: All systems not noted in ROS Statement are negative. Constitutional: Denies: fever, chills Respiratory: Denies: cough, dyspnea Cardiovascular: Denies: chest pain, palpitations, edema Gastrointestinal: Reports: nausea, vomiting. Denies: abdominal pain, diarrhea, constipation, hematemesis, melena, hematochezia Genitourinary: Denies: dysuria, hematuria Musculoskeletal: Denies: back pain Skin: Denies: rash Neurological: Denies: headache, weakness, numbness Past Medical History Past Medical History: Cancer, Hypertension, Osteoarthritis (OA) Additional Past Medical History / Comment(s): BASAL CELL CA. History of Any Multi-Drug Resistant Organisms: None Reported Past Surgical History: Cholecystectomy, Joint Replacement, Tonsillectomy Additional Past Surgical History / Comment(s): BILATERAL KNEE REPLACED. JAW SURGERY. Past Anesthesia/Blood Transfusion Reactions: Motion Sickness, Postoperative Nausea & Vomiting (PONV) Past Psychological History: No Psychological Hx Reported Smoking Status: Former smoker Past Alcohol Use History: None Reported Past Drug Use History: None Reported - Past Family History Mother Family Medical History: Dementia General Exam Limitations: no limitations General appearance: alert, in no apparent distress Head exam: Present: atraumatic, normocephalic Eye exam: Present: normal appearance. Absent: scleral icterus, conjunctival injection ENT exam: Present: normal oropharynx Neck exam: Present: normal inspection Respiratory exam: Present: normal lung sounds bilaterally. Absent: respiratory distress, wheezes, rales, rhonchi, stridor Cardiovascular Exam: Present: regular rate, normal rhythm, normal heart sounds. Absent: systolic murmur, diastolic murmur, rubs, gallop GI/Abdominal exam: Present: soft, diminished bowel sounds. Absent: distended, tenderness, guarding, rebound, mass, pulsatile mass, hernia Extremities exam: Present: normal inspection, normal capillary refill. Absent: pedal edema, calf tenderness Back exam: Present: normal inspection. Absent: CVA tenderness (R), CVA tenderness (L) Neurological exam: Present: alert Skin exam: Present: warm, dry, intact, normal color. Absent: rash Course Vital Signs 04/14/17 04/14/17 04/14/17 04:00 05:42 06:26 Temperature 97.4 F L Pulse Rate 97 77 80 Respiratory 16 18 16 Rate Blood Pressure 149/67 121/57 156/76 O2 Sat by Pulse 94 L 96 95 Oximetry 04/14/17 04/14/17 07:11 07:13 Temperature Pulse Rate 89 82 Respiratory 16 18 Rate Blood Pressure 127/65 124/65 O2 Sat by Pulse 93 L Oximetry Medical Decision Making - Lab Data Result diagrams: 04/14/17 04:30 04/14/17 04:30 Lab Results 04/14/17 04/14/17 04/14/17 Range/Units 04:30 04:30 05:57 WBC 9.5 (3.8-10.6) k/uL RBC 4.89 (3.80-5.40) m/uL Hgb 15.2 (11.4-16.0) gm/dL Hct 45.5 (34.0-46.0) % MCV 93.1 (80.0-100.0) fL MCH 31.1 (25.0-35.0) pg MCHC 33.4 (31.0-37.0) g/dL RDW 12.6 (11.5-15.5) % Plt Count 482 H (150-450) k/uL Neutrophils % 90 % Lymphocytes % 5 % Monocytes % 3 % Eosinophils % 1 % Basophils % 0 % Neutrophils # 8.6 H (1.3-7.7) k/uL Lymphocytes # 0.5 L (1.0-4.8) k/uL Monocytes # 0.3 (0-1.0) k/uL Eosinophils # 0.1 (0-0.7) k/uL Basophils # 0.0 (0-0.2) k/uL Sodium 138 (137-145) mmol/L Potassium 3.9 (3.5-5.1) mmol/L Chloride 106 (98-107) mmol/L Carbon Dioxide 20 L (22-30) mmol/L Anion Gap 12 mmol/L BUN 17 (7-17) mg/dL Creatinine 0.60 (0.52-1.04) mg/dL Est GFR (MDRD) Af Amer >60 (>60 ml/min/1.73 sqM) Est GFR (MDRD) Non-Af >60 (>60 ml/min/1.73 sqM) Glucose 121 H (74-99) mg/dL Calcium 9.3 (8.4-10.2) mg/dL Total Bilirubin 0.5 (0.2-1.3) mg/dL AST 54 H (14-36) U/L ALT 64 H (9-52) U/L Alkaline Phosphatase 103 (38-126) U/L Total Protein 6.7 (6.3-8.2) g/dL Albumin 4.0 (3.5-5.0) g/dL Amylase 46 (30-110) U/L Lipase 69 (23-300) U/L Urine Color Yellow Urine Appearance Cloudy H (Clear) Urine pH 6.0 (5.0-8.0) Ur Specific Edison 1.032 (1.001-1.035) Urine Protein 2+ H (Negative) Urine Glucose (UA) Negative (Negative) Urine Ketones Negative (Negative) Urine Blood Small H (Negative) Urine Nitrite Negative (Negative) Urine Bilirubin 1+ H (Negative) Urine Urobilinogen 2.0 (<2.0) mg/dL Ur Leukocyte Esterase Large H (Negative) Urine RBC 31 H (0-5) /hpf Urine WBC 21 H (0-5) /hpf Ur Squamous Epith Cells 3 (0-4) /hpf Urine Mucus Many H (None) /hpf Disposition Clinical Impression: Abdominal pain, Ileus Disposition: HOME SELF-CARE Condition: Good Instructions: Abdominal Pain (ED), Ileus (ED) Prescriptions: Dicyclomine [Bentyl] 20 mg PO QID #15 tablet Ondansetron Odt [Zofran ODT] 4 mg PO Q8HR PRN #10 tab PRN Reason: Nausea Referrals: Mak Hernandez MD [Primary Care Provider] - 1-2 days
[2017-04-14 04:54] LABS: ALT 64 U/L (9-52); AST 54 U/L (14-36); Alkaline Phosphatase 103 U/L (38-126); Amylase 46 U/L (30-110); Anion Gap 12 mmol/L; Basophils % (A) 0 %; Blood Urea Nitrogen 17 mg/dL (7-17); CH 30.6; Calcium 9.3 mg/dL (8.4-10.2); Carbon Dioxide 20 mmol/L (22-30); Chloride 106 mmol/L (98-107); Eosinophils # (A) 0.1 k/uL (0-0.7); Eosinophils % (A) 1 %; Glucose 121 mg/dL (74-99); HCT 45.5 % (34.0-46.0); HDW 2.15; HGB 15.2 gm/dL (11.4-16.0); Luc # (Auto) 0.06; Luc % (Auto) 1; Lymphocytes # (A) 0.5 k/uL (1.0-4.8); Lymphocytes % (A) 5 %; MCH 31.1 pg (25.0-35.0); MCHC 33.4 g/dL (31.0-37.0); MCV 93.1 fL (80.0-100.0); Mean Platelet Volume 7.3; Monocytes # (A) 0.3 k/uL (0-1.0); Monocytes % (A) 3 %; Neutrophils # (A) 8.6 k/uL (1.3-7.7); Neutrophils % (A) 90 %; Non-African American GFR(MDRD) >60 (>60 ml/min/1.73 sqM); Potassium 3.9 mmol/L (3.5-5.1); RBC 4.89 m/uL (3.80-5.40); RDW 12.6 % (11.5-15.5); Sodium 138 mmol/L (137-145); Total Bilirubin 0.5 mg/dL (0.2-1.3); Total Protein 6.7 g/dL (6.3-8.2); WBC 9.5 k/uL (3.8-10.6)
--- NOTE | 2017-04-14 05:30 | XR ---
EXAM: XR Abdomen Complete With XR Chest CLINICAL HISTORY: Reason: vomiting TECHNIQUE: Frontal view of the chest, frontal view of the abdomen/pelvis and upright view of the abdomen. COMPARISON: No relevant prior studies available. FINDINGS: Lungs: Unremarkable. No consolidation. Pleural space: Unremarkable. No pneumothorax. Heart: Unremarkable. No cardiomegaly. Mediastinum: Unremarkable. Intraperitoneal space: No free air. Gastrointestinal tract: Air fluid levels on upright imaging which correlates with prominent gas and stool filled loops of colon. Findings may represent a non-specific enterocolitis. No definite evidence of obstruction. Organs: Evidence of prior cholecystectomy. Bones/joints: Unremarkable. IMPRESSION: Air fluid levels on upright imaging which correlates with prominent gas and stool filled loops of colon. Findings may represent a non-specific enterocolitis. No definite evidence of obstruction.
[2017-04-14 06:24] LABS: Appearance,Urine Cloudy (Clear); Bilirubin,Urine 1+ (Negative); Glucose,Urine (UA) Negative (Negative); Ketones,Urine Negative (Negative); Leukocyte Esterase,Urine Large (Negative); Mucus,Urine Many /hpf; Nitrite,Urine Negative (Negative); Particle Count 14799; Protein,Urine 2+ (Negative); RBC,Urine 31 /hpf (0-5); Specific Gravity,Urine 1.032 (1.001-1.035); Squamous Epithelial Cell,Urine 3 /hpf (0-4); UA Billing (MACRO vs. MICRO) MICRO; WBC,Urine 21 /hpf (0-5)
[2017-04-14] MEDS ORDERED: SODIUM CHLORIDE 0.9% 1,000 ML IV ONE (07:01)
[2017-04-14 07:14] VITALS: RESP 18
[2017-04-14 09:25] VITALS: BP 122/63; PULSE 78; TEMP 97.9
== END 2017-04-14 09:25 | disposition home or self-care (01) ==
LOC: EC 03:58
DX: K56.7 Ileus, unspecified (principal); I10 Essential (primary) hypertension; M19.90 Unspecified osteoarthritis, unspecified site; Z85.828 Personal history of other malignant neoplasm of skin; Z87.891 Personal history of nicotine dependence; Z79.899 Other long term (current) drug therapy
CPT/HCPCS: 36415; 80053; 82150; 83690; 85025; 81001; 74022; 99284; 96374; 96375; 96376; 96361 ×3; J2270; J2405

== ENCOUNTER → 2019-08-09 | Outpatient (CLI) | payer BC ==
[2019-08-09 12:58] LABS: Basophils % (A) 0 %; Eosinophils # (A) 0.1 k/uL (0-0.7); Eosinophils % (A) 1 %; HCT 42.4 % (34.0-46.0); HGB 13.5 gm/dL (11.4-16.0); Lymphocytes # (A) 1.3 k/uL (1.0-4.8); Lymphocytes % (A) 23 %; MCH 30.3 pg (25.0-35.0); MCHC 31.9 g/dL (31.0-37.0); MCV 95.1 fL (80.0-100.0); Mean Platelet Volume 7.2; Monocytes # (A) 0.2 k/uL (0-1.0); Monocytes % (A) 4 %; Neutrophils # (A) 3.9 k/uL (1.3-7.7); Neutrophils % (A) 70 %; Platelet Count 456 k/uL (150-450); RBC 4.46 m/uL (3.80-5.40); RDW 12.4 % (11.5-15.5); WBC 5.6 k/uL (3.8-10.6)
[2019-08-09 13:14] LABS: African American GFR (CKD) >90 (>60 ml/min/1.73 sqM); Anion Gap 9 mmol/L; Blood Urea Nitrogen 16 mg/dL (7-17); Calcium 9.7 mg/dL (8.4-10.2); Carbon Dioxide 24 mmol/L (22-30); Chloride 106 mmol/L (98-107); Glucose 82 mg/dL (74-99); Non-African American GFR(CKD) >90 (>60 ml/min/1.73 sqM); Potassium 4.1 mmol/L (3.5-5.1); Sodium 139 mmol/L (137-145)
[2019-08-09 13:15] LABS: INR 0.9 (<1.2); Partial Thromboplastin Time 23.6 sec (22.0-30.0); Prothrombin Time 9.5 sec (9.0-12.0)
== END | disposition home or self-care (01) ==
LOC: LABPAT 12:13
PROVIDERS: ATTEND Orthopaedic Surgery Orthopaedic Surgery of the Spine
DX: Z01.812 Encounter for preprocedural laboratory examination (principal); M54.16 Radiculopathy, lumbar region; Z51.81 Encounter for therapeutic drug level monitoring
CPT/HCPCS: 36415; 80048; 85025; 85610; 85730; 87070

== ENCOUNTER 2019-08-19 11:39 | Observation (INO) | payer BC ==
[2019-08-12 16:07] VITALS: BMI 25.7
[~2019-08-19 11:39] MED LIST: LIDOCAINE 1% 20 ML VIAL (10MG/ML) FOR IV START INTRADERMA PRN; ONDANSETRON 4 MG/2 ML VIAL IVP ONE; Pre Op ABX Message 1 EACH MISC MISCELLANE ONE
[2019-08-19] MEDS: LACTATED RINGERS 1,000 ML IV SCH (12:08)
[2019-08-19] MEDS ORDERED: SCOPOLAMINE 1.5MG/72HR PATCH TRANSDERM ONE (12:45)
[2019-08-19] MEDS ORDERED: fentaNYL (PF) 50 MCG/ML 2 ML AMP ONE (12:57)
[2019-08-19] MEDS ORDERED: MIDAZOLAM 2 MG/2 ML VIAL ONE (12:57)
[2019-08-19] MEDS ORDERED: PROPOFOL 10 MG/ML 20 ML VIAL IV ONE (12:57)
[2019-08-19] MEDS ORDERED: SUCCINYLCHOLINE CHLORIDE 100 MG/5 ML SYR IV ONE (12:57)
[2019-08-19] MEDS ORDERED: LIDOCAINE 1% INJ 10MG/ML (20 ML MDV) ONE (12:57)
[2019-08-19] MEDS ORDERED: PHENYLEPHRINE-0.9% NACL SYG 1 MG/10 ML SYRINGE ONE (12:57)
[2019-08-19] MEDS ORDERED: ROCURONIUM BROMIDE 10 MG/ML 10 ML VIAL IV ONE (12:57)
[2019-08-19] MEDS ORDERED: GLYCOPYRROLATE 0.2 MG/ML 2 ML VIAL ONE (12:57)
[2019-08-19] MEDS ORDERED: NEOSTIGMINE 1 MG/ML 10 ML VIAL ONE (12:57)
[2019-08-19] MEDS ORDERED: GELATIN SPONGE,ABSORB (LARGE) 1 EACH SPONGE TOPICAL ONE (12:59)
[2019-08-19] MEDS ORDERED: LIDOCAINE 0.5%-EPI 1:200,000 50 ML VIAL SQ ONE (12:59)
[2019-08-19] MEDS ORDERED: THROMBIN (BOVINE) 5,000 UNIT VIAL TOPICAL ONE (12:59)
[2019-08-19] MEDS ORDERED: BACITRACIN 50,000 UNIT, POLYMYXIN B 500,000 UNIT in SODIUM CHLORIDE 0.9% IRRIGATIO 1,00... IRRIGATION ONE (13:04)
[2019-08-19] MEDS ORDERED: LACTATED RINGERS 1,000 ML IV ONE ×3 (14:36→17:00)
[2019-08-19] MEDS ORDERED: HYDROmorphone 1 MG/ML 1 ML SYRINGE IVP PRN (16:04)
[2019-08-19] MEDS ORDERED: HYDROmorphone 0.5 MG/0.5 ML SYRINGE IVP PRN (16:04)
[2019-08-19] MEDS ORDERED: BENZOCAINE/MENTHOL LOZENG 1 EACH LOZENGE MUCOUS MEM PRN (16:04)
[2019-08-19] MEDS ORDERED: MAGNESIUM HYDROXIDE 2,400 MG/10 ML CUP PO PRN (16:04)
[2019-08-19] MEDS ORDERED: ACETAMINOPHEN TAB 325 MG TAB PO PRN (16:05)
[2019-08-19] MEDS ORDERED: HYDROcodone/APAP 5-325MG 1 EACH TAB PO PRN (16:05)
--- NOTE | 2019-08-19 16:07 | XR ---
Limited lumbar spine HISTORY: Lumbar fusion 5 intraoperative C-arm images document the procedure
--- NOTE | 2019-08-19 16:07 | FL ---
Fluoroscopy HISTORY: Lumbar fusion 54 seconds fluoroscopy time supplied to the referring clinician. 5 intraoperative C-arm images docum ent the procedure. See dictated report from orthopedic surgery.
--- NOTE | 2019-08-19 16:14 | P.OP ---
Date of Procedure: 08/19/19 Preoperative Diagnosis: Spondylolisthesis L5-S1, spinal stenosis L5-S1, degenerative disc disease, low back pain, lower extremity radiculopathy Postoperative Diagnosis: Same Anesthesia: GETA Pathology: none sent Condition: stable Disposition: PACU Description of Procedure: DESCRIPTION OF PROCEDURE(S): BRIEF OPERATIVE NOTE Preoperative Diagnosis: Spondylolisthesis L5-S1, spinal stenosis L5-S1, degenerative disc disease, low back pain, lower extremity radiculopathy Postoperative Diagnosis:Spondylolisthesis L5-S1, spinal stenosis L5-S1, degenera tive disc disease, low back pain, lower extremity radiculopathy Procedure: Laminectomy and decompression L5-S1 Minimally invasive Posterior lateral decompression and fusion L5-S1 Minimally invasive Transforaminal lumbar interbody fusion for a 360 fusion L5-S1 Discectomy for decompression L5-S1 Placement of interbody graft Local autogenous bone grafting Use of computer navigation assisted Quill device for pedicle screw placement Harvesting of bone marrow aspirate via the pedicle of L5 on the right Use of Cell Saver Use of bone graft extenders Surgeon: Dr. Lennon Video Network Engineer: Jordy STALEY who is present throughout the entire the case persistence during positioning, dissection, exposure, visualization, and all crucial elements of the case as well as closure. Anesthesia: General anesthesia Estimated blood loss: Approximately 150 mL Complications: None apparent Components implanted: K2M minimally invasive [place] pedicle screw system with 4 screws measuring 6.5 mm in diameter to rods and one 8 mm [place] interbody cage with 10 mL of bio for bone graft and 15 mL of DBX bone fibers to supplemental local autogenous bone graft Disposition: To recovery room in good stable condition. OPERATIVE INDICATIONS The patient has had long-standing issues in their lower back and lower extremities. She was found have spondylolisthesis which was dynamic and L5-S1. She had evidence of stenosis with bilateral lower extremity radiculopathy worse on the left the right. The site is correlate well with her low back and lower extremity radiculopathy and pain. She is not having any benefit despite aggressive conservative treatment. The patient has been through conservative treatment. We discussed various treatment options including surgery, and the patient wishes to proceed with surgery We discussed the risk, patient's alternat brynn and benefits of surgery including but not limited to, risk of bleeding risk of infection, risk of need for further surgery, risk of decreased, loss of motion, muscle function, malunion nonunion, hardware failure, nerve damage, paralysis, heart attack, blindness and . OPERATIVE SUMMARY After discussing all the risks, patient alternatives and benefits at length, the patient elected to proceed with surgical intervention, signed informed consent, and presented for their procedure. The patient was seen and examined in the preoperative holding area and the surgical site was marked. The patient was given antibiotics and brought to the operating room. The patient was sedated and intubated by anesthesia in standard fashion. The patient was positioned on to the operating room table in a prone position on the appropriate frame which was well-padded and well molded. We were careful to pad any bony prominences and pressure points. We were careful to maintain the patient's cervical spine and good neutral alignment and position throughout. The patient was prepped and draped in a normal standard fashion. An appropriate timeout and keystone protocol performed. We were able to proceed with the surgery. The local wound area was infiltrated with local anesthetic over L5-S1. I was able to establish iliac crest screw reference points for the navigation device on the right. I was able utilize Quill computer navigation device as well as C-arm guidance to establish appropriate position over the pedicles bilaterally at the appropriate levels at L5-S1. With the appropriate levels confirmed was able to make small stab incisions over the appropriate pedicle sites bilaterally. Utilizing C-arm in his house able to establish a Jamshidi needle over the lateral aspect of the pedicle and advanced the trocar into the pedicle being careful not to breech superiorly inferiorly medially or laterally. Position was confirmed regularly with AP and lateral images on C-arm. I was able to establish the trocar into the pedicle appropriately into the posterior aspect of the vertebral body bilaterally at the appropriate levels at L5-S1. This was done at each of the pedicle positions and each of the vertebrae. I was able place the guidewire into the trocar and into the vertebral body appropriately under C-arm guidance. Dissection was taken down over the wire to the appropriat e starting position for the screw placed. The appropriate length screw was chosen, threaded over the guidewire and screwed appropriately into the pedicle and vertebral body under C-arm guidance in excellent alignment and position with good bony purchase. The patient's bone did feel somewhat osteopenic with the placement of the screws but it had good purchase. This is done at each of the screw sites at the appropriate levels at L5-S1. With the screws intact I extended the incision to connect the screw hole sites on the most symptomatic side on the left of L5-S1. I dissected down to establi sh access over the pars and lamina to the base of the spinous process. I was able to expose the facet joint. The capsule the facet was taken down and showed some facet arthrosis at the joint. I was able to use a combination of curettes and Kerrison rongeurs and a high-speed drill to take down the facet joint and do a facetectomy. Partial laminectomy was also performed. I was able get excellen t foraminal decompression and central decompression with undermining across midline to perform a laminectomy centrally and contralaterally. As able get good central decompression. The ligamentum flavum was taken down to further decompress centrally and at bilateral neural foramen. I was able to expose the disc space and visualize the traversing nerve root. Note was made of some disc protrusion at the level causing further compression of the nerve root. I was able to establish a annulotomy at the appropriate level protecting soft tissue and neural structures. Note was made of some disc desiccation at the disc. I performed a complete discectomy with accommodation of curettes and rasps and scrapers. I was able get good endplate preparation at the disc space. I sized for the appropriate size interbody spacer protecting the soft tissue and neural structures. The wound was copiously irrigated and suctioned dry. There is no evidence of any dural tear or leak. I was able to pack the disc space with local autogenous bone graft as well as a small amount of bone graft which was also placed into the interbody cage itself. Protecting the soft tissue structures and neural structures I was able place the interbody cage in good alignment and good position with good fit and fill at the interbody space. His issues was confirmed with C-arm guidance. Good hemostasis maintained. There is no evidence of any dural tear or leak. The wound was irrigated and suctioned dry. With the hardware intact, intraoperative C-arm imaging was again taken which showed good alignment and position of the hardware at the appropriate levels of L5 and S1. We were then able to measure, contour and place the rods and appropriate hardware bilaterally. I was able to place capcrews, tighten them down, and torque them with the torque screwdriver appropriately. With this intact I was able to place the local autogenous bone graft with additional bone graft enhancer as necessary into the posterior lateral gutters over the decorticated transverse processes. The remainder of the bone graft was placed over the facet joint on the contralateral side after taking down the facet joint capsule. With the bone graft intact, a stable construct, and good decompression at the appropriate levels, we were able to proceed with closure. Good hemostasis was maintained. There is no evidence of dural tear or leak. The fascia was closed for a watertight closure. he subcuticular tissue was closed with absorbable suture. The wound was cleaned and dried and dressed with the appropriate dressing. The drapes were broken down. The patient was gently rolled back onto their hospital bed being careful to maintain their cervical spine and good neutral alignment and position. They were woken up by serafin oropeza, extubated, and brought to the recovery room in good stable condition. The patient will be admitted to the hospital for appropriate postoperative care, medical management and monitoring. We will continue to follow them closely about the postoperative course.
[2019-08-19] MEDS: HYDROmorphone 0.5 MG/0.5 ML SYRINGE IVP PRN ×6 (16:16→19:57)
[2019-08-19] MEDS: SODIUM CHLORIDE 0.9% 1,000 ML IV SCH (18:38)
[2019-08-19] MEDS: ONDANSETRON 4 MG/2 ML VIAL IVP PRN (19:57)
[2019-08-19] MEDS: HYDROcodone/APAP 5-325MG 1 EACH TAB PO PRN (23:33)
[2019-08-20] MEDS: HYDROcodone/APAP 5-325MG 1 EACH TAB PO PRN ×5 (04:02→23:26)
[2019-08-20] MEDS: ONDANSETRON 4 MG/2 ML VIAL IVP PRN ×2 (04:33→12:46)
[2019-08-20] MEDS: SODIUM CHLORIDE 0.9% 1,000 ML IV SCH ×2 (04:36→19:09)
[2019-08-20] MEDS: LACTATED RINGERS 1,000 ML IV SCH (06:13)
[2019-08-20 07:15] LABS: Basophils % (A) 0 %; Eosinophils % (A) 0 %; HCT 34.6 % (34.0-46.0); HGB 11.5 gm/dL (11.4-16.0); Lymphocytes # (A) 0.7 k/uL (1.0-4.8); Lymphocytes % (A) 7 %; MCH 31.5 pg (25.0-35.0); MCHC 33.3 g/dL (31.0-37.0); MCV 94.4 fL (80.0-100.0); Mean Platelet Volume 7.8; Monocytes # (A) 0.4 k/uL (0-1.0); Monocytes % (A) 5 %; Neutrophils # (A) 8.6 k/uL (1.3-7.7); Neutrophils % (A) 87 %; Platelet Count 385 k/uL (150-450); RBC 3.66 m/uL (3.80-5.40); RDW 12.2 % (11.5-15.5); WBC 9.9 k/uL (3.8-10.6)
[2019-08-20 07:27] LABS: African American GFR (CKD) >90 (>60 ml/min/1.73 sqM); Anion Gap 5 mmol/L; Blood Urea Nitrogen 10 mg/dL (7-17); Calcium 8.2 mg/dL (8.4-10.2); Carbon Dioxide 25 mmol/L (22-30); Chloride 106 mmol/L (98-107); Glucose 89 mg/dL (74-99); Non-African American GFR(CKD) >90 (>60 ml/min/1.73 sqM); Potassium 3.7 mmol/L (3.5-5.1); Sodium 136 mmol/L (137-145)
--- NOTE | 2019-08-20 08:27 | P.PN ---
Progress Note - Text Progress Note Date: 08/20/19 Orthopedic Spine: History of present illness: Patient is a pleasant 64-year-old female who is seen and examined at the bedside following posterior lateral decompression and fusion performed yesterday. Patient states they are doing ok postsurgically. Her pain has been adequately controlled with oral and IV pain medications. She did have some nausea and vomited this morning. She feels her nausea is improving. She was able to eat breakfast this morning. She is able to move her legs independently without significant difficulty. She does have some pain in the surgical sites. Pain is controlled at rest. She has had some difficulty with mobilization due to her pain. She is looking forward to working with physical therapy today to increase her mobility. Currently does not complain of nausea, vomiting, fever, or chills. Her Su catheter has remained intact Physical Exam Lumbar Fusion: Status post surgical day number 1 Patient is awake, alert, and oriented 3 Vital signs stable Good chest excursion with deep inspiration and expiration Dorsiflexion, plantarflexion, and extensor hallucis longus positive sustained bilaterally No signs or symptoms of DVT; no calf pain; pneumatic cuffs intact bilateral lower extremities Dressings are clean, dry, and intact; no erythema, purulence, or signs of infection Neurovascularly intact bilaterally lower extremities Assessment: Status post L5-S1 minimally invasive posterior lateral decompression and fusion with transforaminal lumbar interbody fusion Low back pain L5-S1 spondylolisthesis L5-S1 degenerative disc disease Lower extremity radiculopathy Plan: 1. Ambulate as tolerated; work with Physical Therapy to increase mobilization 2. Continue pain control with IV and oral medications 3. Dressing to remain intact with silver and Tegaderm 4. We'll plan to discontinue her Su catheter today when she is able to increase her mobility 5. Medical management can continue to manage patient for patient's other medical diagnoses 6. We will continue to follow the patient closely; patient feels she is doing fairly well postoperatively. She is looking forward to working on increasing her mobility. If she is able to improve postoperatively, we will plan for discharge home in the next 1-2 days. 7. Patient can follow-up with Jordy Long PA-C or Dr. Baldemar Lennon at [facility] in 2-3 weeks following discharge
[2019-08-20] MEDS: SENNOSIDES-DOCUSATE SODIUM 1 EACH TAB PO SCH ×3 (08:44→12:45)
[2019-08-20] MEDS: LOSARTAN 50 MG TAB PO SCH (08:44)
--- NOTE | 2019-08-20 13:53 | P.CONS ---
History of Present Illness - Reason for Consult Consult date: 08/20/19 Medical management - History of Present Illness This is a 64-year-old female patient of Dr. Mak Hernandez with past medical history of hypertension, osteoarthritis, basal cell cancer. Patient has been brought in under the care of Dr. Lennon status post L5-S1 minimally invasive posterior lateral decompression and fusion with transforaminal lumbar interbody fusion, postop day #1. Patient is complaining of pain in the lower back that is radiating around her side into her abdomen. She is also having nausea without vomiting. She denies having any chest pain, no shortness of breath. Patient states she was unable to eat all of her breakfast this morning. She was able to walk in her room. She does have some numbness in the left thigh. Good strength to bilateral lower extremities. Patient last followed up with Dr. Hernandez one week ago. Blood pressure 109/65 and parameters have been placed on her blood pressure medicine. Patient is reaching 1000 on incentive spirometry. Review of Systems Constitutional: Reports poor appetite, Denies chills, Denies fatigue, Denies fever Eyes: denies blurred vision, denies pain Ears, nose, mouth and throat: Denies dysphagia, Denies headache, Denies nasal congestion, Denies nasal discharge, Denies sore throat, Denies vertigo Cardiovascular: Denies chest pain, Denies leg edema, Denies lightheadedness, Denies shortness of breath, Denies syncope Respiratory: Denies cough, Denies cough with sputum, Denies dyspnea, Denies excessive sputum, Denies hemoptysis, Denies home oxygen Gastrointestinal: Reports loss of appetite, Reports nausea, Denies abdominal pain, Denies diarrhea, Denies vomiting Genitourinary: Denies dysuria, Denies hematuria Musculoskeletal: Denies frequent falls, Denies myalgias Integumentary: Denies pruritus, Denies rash Neurological: Denies change in mentation, Denies change in speech, Denies numbness, Denies weakness Psychiatric: Denies anxiety, Denies depression Endocrine: Denies fatigue, Denies weight change Past Medical History Past Medical History: Cancer, Hypertension, Musculoskeletal Disorder, Osteoarthritis (OA) Additional Past Medical History / Comment(s): BASAL CELL CA, frequent diarrhea History of Any Multi-Drug Resistant Organisms: None Reported Past Surgical History: Cholecystectomy, Joint Replacement, Tonsillectomy Additional Past Surgical History / Comment(s): BILATERAL KNEES REPLACED. JAW SURGERY-unsure of any hardware Past Anesthesia/Blood Transfusion Reactions: Motion Sickness, Postoperative Nausea & Vomiting (PONV) Additional Past Anesthesia/Blood Transfusion Reaction / Comm: has had surgery since jaw surg. w/no problem per pt. Past Psychological History: No Psychological Hx Reported Smoking Status: Former smoker Past Alcohol Use History: Rare Additional Past Alcohol Use History / Comment(s): quit smoking @32 years of age, smoked on & off since teens, had quit a few times for 5-7 yrs. Past Drug Use History: None Reported - Past Family History Mother Family Medical History: Dementia Additional Family Medical History / Comment(s): Mother at age 80 from stroke. Father Family Medical History: No Reported History Additional Family Medical History / Comment(s): Father at age 41 from Hodgkin's lymphoma. Brother(s) Additional Family Medical History / Comment(s): Patient has 1 brother but has no contact with him. Patient has no sisters. Patient has 2 children with no major medical problems. Medications and Allergies Home Medications Medication Instructions Recorded Confirmed Type [facility] Allergy Medication Otc 1 tab PO DAILY 12/21/16 08/12/19 History Losartan [Cozaar] 50 mg PO DAILY 12/21/16 08/12/19 History Acetaminophen Tab [Tylenol Tab] 650 mg PO Q6H PRN 08/12/19 08/12/19 History Allergies Allergy/AdvReac Type Severity Reaction Status Date / Time avocado Allergy Nausea & Verified 08/12/19 15:09 Vomiting Milk Containing Products AdvReac GI issues Verified 08/12/19 16:07 [Dairy] Physical Exam Vitals: Vital Signs Temp Pulse Resp BP Pulse Ox 08/20/19 07:00 98.1 F 82 12 109/65 91 L 08/20/19 01:58 98.6 F 87 18 118/74 97 08/20/19 00:00 18 08/19/19 19:49 90 18 112/60 97 08/19/19 19:34 105 H 18 144/81 99 08/19/19 19:19 92 18 133/75 97 08/19/19 19:04 87 18 123/73 97 08/19/19 18:49 95 18 132/72 93 L 08/19/19 18:34 82 18 121/72 88 L 08/19/19 18:19 82 18 121/73 91 L 08/19/19 18:04 97.9 F 83 18 132/76 98 08/19/19 17:55 73 16 139/71 97 08/19/19 17:35 69 16 132/56 98 08/19/19 17:17 77 16 136/64 98 08/19/19 17:02 75 16 134/62 100 08/19/19 16:47 73 16 140/64 100 08/19/19 16:34 71 16 132/63 100 08/19/19 16:19 74 16 126/68 99 08/19/19 16:04 97.3 F L 75 14 118/91 96 08/19/19 11:56 97.9 F 87 20 136/66 97 Intake and Output 08/19/19 08/20/19 08/20/19 22:59 06:59 14:59 Intake Total 400 Output Total 310 600 Balance 90 -600 Intake: IV 400 Output: Urine 160 600 Estimated Blood Loss 150 Other: Voiding Method Indwelling Catheter Indwelling Catheter Indwelling Catheter Weight 76.2 kg Gen: This is a 64-year-old female, resting and recliner. She appears somewhat uncomfortable only from nausea. HEENT: Head is atraumatic, normocephalic. Pupils equal, round. Sclerae is anicteric. NECK: Supple. No JVD. No lymphadenopathy. No thyromegaly. LUNGS: Clear to auscultation. No wheezes or rhonchi. No intercostal retractions. HEART: Regular rate and rhythm. No murmur. ABDOMEN: Soft. Bowel sounds are present. No masses. No tenderness. Su catheter draining clear mirna urine. EXTREMITIES: No pedal edema. No calf tenderness. NEUROLOGICAL: Patient is awake, alert and oriented x3. Cranial nerves 2 through 12 are grossly intact. Results CBC & Chem 7: 08/20/19 06:18 08/20/19 06:18 Labs: Abnormal Lab Results - Last 24 Hours (Table) 08/20/19 08/20/19 Range/Units 06:18 06:18 RBC 3.66 L (3.80-5.40) m/uL Neutrophils # 8.6 H (1.3-7.7) k/uL Lymphocytes # 0.7 L (1.0-4.8) k/uL Sodium 136 L (137-145) mmol/L Calcium 8.2 L (8.4-10.2) mg/dL Assessment and Plan Plan: 1. Status post L5-S1 minimally invasive posterior lateral decompression and fusion with transforaminal lumbar interbody fusion, postoperative day #1. Continue current pain management, incentive spirometry to reduce incidence and hospital-acquired pneumonia. 2. Postoperative nausea, expected. Continue Zofran. 3. Hypertension. Continue losartan the with parameters to hold if systolic blood pressure less than 110 4. History of basal cell cancer, stable. 5. GI prophylaxis. Protonix. Discharge plan: Home without home care Impression and plan of care have been directed as dictated by the signing physician. Gabbie Castillo nurse practitioner acting as scribe for signing physician.
[2019-08-21] MEDS: LACTATED RINGERS 1,000 ML IV SCH (05:15)
[2019-08-21] MEDS: HYDROcodone/APAP 5-325MG 1 EACH TAB PO PRN ×3 (05:22→15:24)
[2019-08-21] MEDS ORDERED: PANTOPRAZOLE 40 MG TABLET PO SCH (07:30)
[2019-08-21 08:17] VITALS: BP 118/62; PULSE 82; RESP 12; TEMP 98
[2019-08-21] MEDS: SENNOSIDES-DOCUSATE SODIUM 1 EACH TAB PO SCH (08:42)
[2019-08-21] MEDS: LOSARTAN 50 MG TAB PO SCH (08:42)
[2019-08-21] MEDS ORDERED: POLYETHYLENE GLYCOL 3350 17 GM POWD.PACK PO SCH (09:45)
[2019-08-21] MEDS: SODIUM CHLORIDE 0.9% 1,000 ML IV SCH (09:52)
[2019-08-21] MEDS: ONDANSETRON 4 MG/2 ML VIAL IVP PRN (10:59)
--- NOTE | 2019-08-21 11:24 | P.DS ---
Providers Date of admission: 08/20/19 05:29 Expected date of discharge: 08/21/19 Attending physician: Radha Lennon Consults: 08/19/19 16:05 Consult Physician Routine Consulting Provider: Bharathi Dia Consult Reason/Comments: Medical management Do you want consulting provider notified?: Yes Primary care physician: Mak Hernandez - Discharge Diagnosis(es) (1) Spondylolisthesis, lumbosacral region Current Visit: Yes Status: Acute (2) Disc disease, degenerative, lumbar or lumbosacral Current Visit: Yes Status: Acute (3) Low back pain Current Visit: Yes Status: Acute (4) Radiculopathy with lower extremity symptoms Current Visit: Yes Status: Acute Hospital Course: This is a pleasant 64 old female who presented with L5-S1 spondylolisthesis and degenerative disc disease, low back pain, and lower extremity radiculopathy who failed outpatient conservative therapy. She was admitted for an L5-S1 minimally invasive posterior lateral decompression and fusion with transforaminal lumbar interbody fusion. The patient tolerated the procedure well and did well postoperatively. She has some pain at the surgical sites which has been well- controlled with oral Hankamer. She is able to stand from a seated position a bedside chair without significant difficulty. She's been ambulating the hallways. She has had some nausea today than yesterday. She vomited twice yesterday on Monday. She is taking some antinausea medicine. Her blood pressure has been better controlled as well. She does feel she'll be ready for discharge home today. Condition on day of discharge stable. Patient will be discharged home. Patient was cleared preoperatively for surgery by Dr. Mak Hernandez. Patient currently denies fever or chills. Patient is eating and voiding freely without difficulty. Patient may shower silver and Tegaderm dressing intact. Patient may remove silver and Tegaderm dressing in 2 days and shower without a dressing at that time. Patient should refrain from driving until at least after their first follow-up appointment in the office. Patient should avoid excessive bending, lifting, and twisting; no lifting greater than 10 pounds. MAPS has been reviewed today, 08/21/2019, with an Overall Overdose Risk Score of . An "Opiod Start Talking" Forn has been signed by the patient and myself in place in the patient's chart. A prescription has been written for Hankamer 5 mg/325 mg take 1-2 tabs every 4 hours as needed for pain, dispensed #84. Patient should avoid anti-inflammatories over the next 6 weeks postoperatively. Patient is also given a prescription for Zofran 4 mg 1 tab Physical Exam on day of discharge: Postoperative day #2 Patient is awake, alert, and oriented 3 Vital signs stable Good chest excursion with deep inspiration and expiration Abdomen soft nontender No signs or symptoms of DVT; no calf pain Extensor hallucis longus, plantarflexion, and dorsiflexion positive sustained bilateral lower extremities She is able to stand from a seated position without difficulty Incision is clean, dry, and intact; no erythema, purulence, or signs of infection No pain with palpation of the surgical sites Silver and Tegaderm dressing and non-stick Telfa intact Procedures: L5-S1 minimally invasive posterior lateral decompression and fusion with transforaminal lumbar interbody fusion Patient Condition at Discharge: Stable Plan - Discharge Summary Discharge Rx Participant: Yes New Discharge Prescriptions: New HYDROcodone/APAP 5-325MG [Hankamer 5-325] 1 - 2 tab PO Q4HR PRN 3 Days #84 tab PRN Reason: Pain Ondansetron [Zofran] 4 mg PO Q6HR PRN #60 tab PRN Reason: Nausea Changed Losartan [Cozaar] 25 mg PO DAILY #0 No Action [facility] Allergy Medication Otc 1 tab PO DAILY Acetaminophen Tab [Tylenol Tab] 650 mg PO Q6H PRN PRN Reason: Pain Discharge Medication List [facility] Allergy Medication Otc 1 tab PO DAILY 12/21/16 [History] Acetaminophen Tab [Tylenol Tab] 650 mg PO Q6H PRN 08/12/19 [History] HYDROcodone/APAP 5-325MG [Hankamer 5-325] 1 - 2 tab PO Q4HR PRN 3 Days #84 tab 08/21/19 [Rx] Losartan [Cozaar] 25 mg PO DAILY #0 08/21/19 [Rx] Ondansetron [Zofran] 4 mg PO Q6HR PRN #60 tab 08/21/19 [Rx] Follow up Appointment(s)/Referral(s): Jordy Logn, JOEL [PHYSICIAN VP COMPLIANCE] - 09/03/19 10:00 am (Patient may follow-up with Jordy Long PA-C or Dr. Baldemar Lennon at [facility] in 2-3 weeks following discharge. ) Mak Hernandez MD [Primary Care Provider] - 1 Week Activity/Diet/Wound Care/Special Instructions: 1. Patient may shower with silver and Tegaderm dressing intact. 2. Patient may remove silver and Tegaderm dressing in 2 days and shower without a dressing at that time. 3. Patient should refrain from driving until at least after their first follow- up appointment in the office. 4. Patient should avoid excessive bending, twisting, and lifting; no lifting greater than 10 pounds 5. Take medications as prescribed 6. Do not soak in tub Discharge Disposition: HOME SELF-CARE
--- NOTE | 2019-08-21 12:48 | P.PN ---
Subjective Progress Note Date: 08/21/19 This is a 64-year-old female patient of Dr. Mak Hernandez with past medical history of hypertension, osteoarthritis, basal cell cancer. Patient has been brought in under the care of Dr. Lennon status post L5-S1 minimally invasive posterior lateral decompression and fusion with transforaminal lumbar interbody fusion, postop day #1. Patient is complaining of pain in the lower back that is radiating around her side into her abdomen. She is also having nausea without vomiting. She denies having any chest pain, no shortness of breath. Patient states she was unable to eat all of her breakfast this morning. She was able to walk in her room. She does have some numbness in the left thigh. Good strength to bilateral lower extremities. Patient last followed up with Dr. Hernandez one week ago. Blood pressure 109/65 and parameters have been placed on her blood pressure medicine. Patient is reaching 1000 on incentive spirometry. 08/21: Patient has been afebrile, heart rate 82, blood pressure 118/62, pulse ox 94% on room air. Nausea is much improved today. Pain is controlled. She denies having any numbness or tingling. She has ambulate with physical therapy. Su catheter was removed yesterday and patient voiding without difficulty. Patient that she may be ready for discharge today. We will decrease dose of losartan for home. Review of Systems Constitutional: Reports poor appetite, Denies chills, Denies fatigue, Denies fever Eyes: denies blurred vision, denies pain Ears, nose, mouth and throat: Denies dysphagia, Denies headache, Denies nasal congestion, Denies nasal discharge, Denies sore throat, Denies vertigo Cardiovascular: Denies chest pain, Denies leg edema, Denies lightheadedness, Denies shortness of breath, Denies syncope Respiratory: Denies cough, Denies cough with sputum, Denies dyspnea, Denies excessive sputum, Denies hemoptysis, Denies home oxygen Gastrointestinal: Denies loss of appetite,Denies nausea, Denies abdominal pain, Denies diarrhea, Denies vomiting Genitourinary: Denies dysuria, Denies hematuria Musculoskeletal: Denies frequent falls, Denies myalgias Integumentary: Denies pruritus, Denies rash Neurological: Denies change in mentation, Denies change in speech, Denies numbness, Denies weakness Psychiatric: Denies anxiety, Denies depression Endocrine: Denies fatigue, Denies weight change Objective - Vital Signs Vital signs: Vital Signs Temp 98 F 08/21/19 07:00 Pulse 82 08/21/19 07:00 Resp 12 08/21/19 07:00 BP 118/62 08/21/19 07:00 Pulse Ox 94 L 08/21/19 07:00 Intake & Output 08/20/19 08/21/19 08/21/19 18:59 06:59 18:59 Output Total 1200 Balance -1200 Output: Urine 1200 Uretheral (Su) 600 Other: Voiding Method Indwelling Catheter Toilet # Voids 3 1 - Exam Gen: This is a 64-year-old female, resting in recliner. She appears comfortable and in no acute distress. HEENT: Head is atraumatic, normocephalic. Pupils equal, round. Sclerae is anicteric. NECK: Supple. No JVD. No lymphadenopathy. No thyromegaly. LUNGS: Clear to auscultation. No wheezes or rhonchi. No intercostal retractions. HEART: Regular rate and rhythm. No murmur. ABDOMEN: Soft. Bowel sounds are present. No masses. No tenderness. EXTREMITIES: No pedal edema. No calf tenderness. NEUROLOGICAL: Patient is awake, alert and oriented x3. Cranial nerves 2 through 12 are grossly intact. - Labs CBC & Chem 7: 08/20/19 06:18 08/20/19 06:18 Assessment and Plan Plan: 1. Status post L5-S1 minimally invasive posterior lateral decompression and fusion with transforaminal lumbar interbody fusion, postoperative day #2. Continue current pain management, incentive spirometry to reduce incidence and hospital-acquired pneumonia. 2. Postoperative nausea, expected. Continue Zofran. 3. Hypertension. Continue losartan dose for home will be decreased from 50 mg daily to 25 mg daily. 4. History of basal cell cancer, stable. 5. GI prophylaxis. Protonix. Discharge plan: Home without home care, possibly later today Impression and plan of care have been directed as dictated by the signing physician. Gabbie Castillo nurse practitioner acting as scribe for signing physician.
== END 2019-08-21 15:32 | disposition home or self-care (01) ==
LOC: OR 11:39 → EDSTATUS 13:00 → 4SSUR 16:04 → OR 08-20 05:49
PROVIDERS: ADMIT Orthopaedic Surgery Orthopaedic Surgery of the Spine; ATTEND Orthopaedic Surgery Orthopaedic Surgery of the Spine
DX: M43.17 Spondylolisthesis, lumbosacral region (principal); M51.17 Intervertebral disc disorders with radiculopathy, lumbosacral region; M48.07 Spinal stenosis, lumbosacral region; M16.0 Bilateral primary osteoarthritis of hip; I10 Essential (primary) hypertension; M41.20 Other idiopathic scoliosis, site unspecified; M81.0 Age-related osteoporosis without current pathological fracture; C00.8 Malignant neoplasm of overlapping sites of lip; R31.29 Other microscopic hematuria; D50.9 Iron deficiency anemia, unspecified; J30.9 Allergic rhinitis, unspecified; Z79.899 Other long term (current) drug therapy; Z97.3 Presence of spectacles and contact lenses; Z87.19 Personal history of other diseases of the digestive system; Z87.891 Personal history of nicotine dependence; Z96.653 Presence of artificial knee joint, bilateral; Z87.448 Personal history of other diseases of urinary system; Z98.890 Other specified postprocedural states; Z90.49 Acquired absence of other specified parts of digestive tract; Z91.89 Other specified personal risk factors, not elsewhere classified; Z90.89 Acquired absence of other organs; Z87.898 Personal history of other specified conditions; Z91.018 Allergy to other foods; Z91.011 Allergy to milk products; Z85.828 Personal history of other malignant neoplasm of skin; Z83.3 Family history of diabetes mellitus; Z80.9 Family history of malignant neoplasm, unspecified; Z80.8 Family history of malignant neoplasm of other organs or systems; Z81.8 Family history of other mental and behavioral disorders; Z82.3 Family history of stroke
CPT/HCPCS: 22612; 22853; 63047; 97116; 97161; 80048; 85025; 72100; G0378 ×2; C1713; J2250; J2710; J0690 ×2; J2405 ×3; J2001; J3010; J2370; J0330; J2704; J1170 ×2; 86850; 86900; 86901

== ENCOUNTER 2019-08-22 19:10 | Inpatient (IN) | payer BC ==
[2019-08-22] MEDS ORDERED: SODIUM CHLORIDE 0.9% 1,000 ML IV STA ×2 (20:33)
[2019-08-22] MEDS ORDERED: MORPHINE SULFATE 4 MG/ML SYRINGE IV STA (20:33)
[2019-08-22] MEDS ORDERED: SODIUM CHLORIDE 0.9% 500 ML 500 ML IV STA (20:33)
--- NOTE | 2019-08-22 20:37 | ED ---
Abdominal Pain HPI - General Chief Complaint: Nausea/Vomiting/Diarrhea Stated Complaint: Vomiting-Post Op Time Seen by Provider: 08/22/19 20:14 Source: patient, RN notes reviewed, old records reviewed Mode of arrival: wheelchair Limitations: no limitations - History of Present Illness Initial Comments: This is a 64-year-old female DF for evaluation abdominal pain nausea vomiting or back pain chronic back pain recent back surgery. No recent fall movements. Patient symptoms for 3 days no appetite decreased appetite feels dehydrated feels weak feels nauseous decreased activity level. Patient denying any fevers no chest pain or shortness of breath is complaining use abdominal pain and bloating MD Complaint: abdominal pain -: days(s) Location: diffuse Radiation: none Migration to: periumbilical Severity: mild Severity scale (1-10): 4 Quality: aching Consistency: constant Improves With: nothing Worsens With: nothing Associated Symptoms: nausea, vomiting - Related Data Home Medications Medication Instructions Recorded Confirmed Cvs Allergy Medication Otc 1 tab PO DAILY 12/21/16 08/12/19 Acetaminophen Tab [Tylenol Tab] 650 mg PO Q6H PRN 08/12/19 08/12/19 Previous Rx's Medication Instructions Recorded HYDROcodone/APAP 5-325MG [[place] 1 - 2 tab PO Q4HR PRN 3 Days #84 08/21/19 5-325] tab Losartan [Cozaar] 25 mg PO DAILY #0 08/21/19 Ondansetron [Zofran] 4 mg PO Q6HR PRN #60 tab 08/21/19 Allergies Allergy/AdvReac Type Severity Reaction Status Date / Time avocado Allergy Nausea & Verified 08/12/19 15:09 Vomiting Milk Containing Products AdvReac GI issues Verified 08/12/19 16:07 [Dairy] Review of Systems ROS Statement: Those systems with pertinent positive or pertinent negative responses have been documented in the HPI. ROS Other: All systems not noted in ROS Statement are negative. Past Medical History Past Medical History: Cancer, Hypertension, Osteoarthritis (OA) Additional Past Medical History / Comment(s): BASAL CELL CA. History of Any Multi-Drug Resistant Organisms: None Reported Past Surgical History: Back Surgery Additional Past Surgical History / Comment(s): BILATERAL KNEE REPLACED. JAW SURGERY. Past Anesthesia/Blood Transfusion Reactions: Motion Sickness, Postoperative Nausea & Vomiting (PONV) Past Psychological History: No Psychological Hx Reported Smoking Status: Never smoker Past Alcohol Use History: None Reported Past Drug Use History: None Reported - Past Family History Mother Family Medical History: Dementia Additional Family Medical History / Comment(s): Mother at age 80 from stroke. Father Family Medical History: No Reported History Additional Family Medical History / Comment(s): Father at age 41 from Hodgkin's lymphoma. Brother(s) Additional Family Medical History / Comment(s): Patient has 1 brother but has no contact with him. Patient has no sisters. Patient has 2 children with no major medical problems. General Exam Limitations: no limitations General appearance: alert, in no apparent distress Head exam: Present: atraumatic, normocephalic, normal inspection Eye exam: Present: normal appearance, PERRL, EOMI. Absent: scleral icterus, conjunctival injection, periorbital swelling ENT exam: Present: normal exam, mucous membranes moist Neck exam: Present: normal inspection. Absent: tenderness, meningismus, lymphadenopathy Respiratory exam: Present: normal lung sounds bilaterally. Absent: respiratory distress, wheezes, rales, rhonchi, stridor Cardiovascular Exam: Present: regular rate, normal rhythm, normal heart sounds. Absent: systolic murmur, diastolic murmur, rubs, gallop, clicks GI/Abdominal exam: Present: soft, normal bowel sounds. Absent: distended, tenderness, guarding, rebound, rigid Extremities exam: Present: normal inspection, full ROM, normal capillary refill. Absent: tenderness, pedal edema, joint swelling, calf tenderness Back exam: Present: normal inspection Neurological exam: Present: alert, oriented X3, CN II-XII intact Psychiatric exam: Present: normal affect, normal mood Skin exam: Present: warm, dry, intact, normal color. Absent: rash Course Vital Signs 08/22/19 19:11 Temperature 99.8 F H Pulse Rate 110 H Respiratory 21 Rate Blood Pressure 128/64 O2 Sat by Pulse 96 Oximetry - Reevaluation(s) Reevaluation #1: 08/22/19 21:50 Medical records reviewed Reevaluation #2: 08/22/19 21:50 Patient has improved symptomatically, pain control - Consultations Consultation #1: spoke w Dr Dia is ok for admission Medical Decision Making - Medical Decision Making 64 female to the ER for abdominal pain, positive ileus versus small instructed. Patient will be admitted for evaluation patient can be admitted for IV hydrat ion and symptom management - Lab Data Result diagrams: 08/22/19 20:59 08/22/19 20:59 Lab Results 08/22/19 08/22/19 08/22/19 Range/Units 20:59 20:59 20:59 WBC 9.4 (3.8-10.6) k/uL RBC 4.21 (3.80-5.40) m/uL Hgb 12.7 (11.4-16.0) gm/dL Hct 39.8 (34.0-46.0) % MCV 94.6 (80.0-100.0) fL MCH 30.2 (25.0-35.0) pg MCHC 32.0 (31.0-37.0) g/dL RDW 12.3 (11.5-15.5) % Plt Count 416 (150-450) k/uL Neutrophils % 86 % Lymphocytes % 6 % Monocytes % 4 % Eosinophils % 1 % Basophils % 1 % Neutrophils # 8.1 H (1.3-7.7) k/uL Lymphocytes # 0.6 L (1.0-4.8) k/uL Monocytes # 0.4 (0-1.0) k/uL Eosinophils # 0.1 (0-0.7) k/uL Basophils # 0.1 (0-0.2) k/uL PT (9.0-12.0) sec INR (<1.2) APTT (22.0-30.0) sec Sodium 137 (137-145) mmol/L Potassium 3.8 (3.5-5.1) mmol/L Chloride 98 (98-107) mmol/L Carbon Dioxide 30 (22-30) mmol/L Anion Gap 9 mmol/L BUN 12 (7-17) mg/dL Creatinine 0.48 L (0.52-1.04) mg/dL Est GFR (CKD-EPI)AfAm >90 (>60 ml/min/1.73 sqM) Est GFR (CKD-EPI)NonAf >90 (>60 ml/min/1.73 sqM) Glucose 97 (74-99) mg/dL Plasma Lactic Acid Raymond 1.0 (0.7-2.0) mmol/L Calcium 9.1 (8.4-10.2) mg/dL Phosphorus 3.4 (2.5-4.5) mg/dL Magnesium 1.7 (1.6-2.3) mg/dL Total Bilirubin 1.3 (0.2-1.3) mg/dL AST 459 H (14-36) U/L ALT 468 H (4-34) U/L Alkaline Phosphatase 364 H (38-126) U/L Troponin I (0.000-0.034) ng/mL Total Protein 6.1 L (6.3-8.2) g/dL Albumin 3.3 L (3.5-5.0) g/dL Lipase 39 (23-300) U/L Urine Color Urine Appearance (Clear) Urine pH (5.0-8.0) Ur Specific [place] (1.001-1.035) Urine Protein (Negative) Urine Glucose (UA) (Negative) Urine Ketones (Negative) Urine Blood (Negative) Urine Nitrite (Negative) Urine Bilirubin (Negative) Urine Urobilinogen (<2.0) mg/dL Ur Leukocyte Esterase (Negative) Urine RBC (0-5) /hpf Urine WBC (0-5) /hpf Ur Squamous Epith Cells (0-4) /hpf Urine Mucus (None) /hpf 08/22/19 08/22/19 08/22/19 Range/Units 20:59 20:59 20:59 WBC (3.8-10.6) k/uL RBC (3.80-5.40) m/uL Hgb (11.4-16.0) gm/dL Hct (34.0-46.0) % MCV (80.0-100.0) fL MCH (25.0-35.0) pg MCHC (31.0-37.0) g/dL RDW (11.5-15.5) % Plt Count (150-450) k/uL Neutrophils % % Lymphocytes % % Monocytes % % Eosinophils % % Basophils % % Neutrophils # (1.3-7.7) k/uL Lymphocytes # (1.0-4.8) k/uL Monocytes # (0-1.0) k/uL Eosinophils # (0-0.7) k/uL Basophils # (0-0.2) k/uL PT 9.9 (9.0-12.0) sec INR 0.9 (<1.2) APTT 22.5 (22.0-30.0) sec Sodium (137-145) mmol/L Potassium (3.5-5.1) mmol/L Chloride (98-107) mmol/L Carbon Dioxide (22-30) mmol/L Anion Gap mmol/L BUN (7-17) mg/dL Creatinine (0.52-1.04) mg/dL Est GFR (CKD-EPI)AfAm (>60 ml/min/1.73 sqM) Est GFR (CKD-EPI)NonAf (>60 ml/min/1.73 sqM) Glucose (74-99) mg/dL Plasma Lactic Acid Raymond (0.7-2.0) mmol/L Calcium (8.4-10.2) mg/dL Phosphorus (2.5-4.5) mg/dL Magnesium (1.6-2.3) mg/dL Total Bilirubin (0.2-1.3) mg/dL AST (14-36) U/L ALT (4-34) U/L Alkaline Phosphatase (38-126) U/L Troponin I <0.012 (0.000-0.034) ng/mL Total Protein (6.3-8.2) g/dL Albumin (3.5-5.0) g/dL Lipase (23-300) U/L Urine Color Dark Yellow Urine Appearance Clear (Clear) Urine pH 6.5 (5.0-8.0) Ur Specific [place] 1.032 (1.001-1.035) Urine Protein 2+ H (Negative) Urine Glucose (UA) Negative (Negative) Urine Ketones 4+ H (Negative) Urine Blood Moderate H (Negative) Urine Nitrite Negative (Negative) Urine Bilirubin 1+ H (Negative) Urine Urobilinogen 8.0 (<2.0) mg/dL Ur Leukocyte Esterase Trace H (Negative) Urine RBC >182 H (0-5) /hpf Urine WBC 2 (0-5) /hpf Ur Squamous Epith Cells <1 (0-4) /hpf Urine Mucus Occasional H (None) /hpf - EKG Data -: EKG Interpreted by Me (EKG shows sinus rhythm of 98, NH 132, QRS 80, QTC 469) - Radiology Data Radiology results: report reviewed (CT abd pelvis shows likely SBO), image reviewed Disposition Clinical Impression: Dehydration, SBO (small bowel obstruction), Low back pain Disposition: ADMITTED IP TO THIS HOSP Condition: Good Is patient prescribed a controlled substance at d/c from ED?: No Referrals: Mak Hernandez MD [Primary Care Provider] - 1-2 days
[2019-08-22 21:25] LABS: Basophils # (A) 0.1 k/uL (0-0.2); Basophils % (A) 1 %; Eosinophils # (A) 0.1 k/uL (0-0.7); Eosinophils % (A) 1 %; HCT 39.8 % (34.0-46.0); HGB 12.7 gm/dL (11.4-16.0); Lymphocytes # (A) 0.6 k/uL (1.0-4.8); Lymphocytes % (A) 6 %; MCH 30.2 pg (25.0-35.0); MCV 94.6 fL (80.0-100.0); Mean Platelet Volume 8.1; Monocytes # (A) 0.4 k/uL (0-1.0); Monocytes % (A) 4 %; Neutrophils # (A) 8.1 k/uL (1.3-7.7); Neutrophils % (A) 86 %; Platelet Count 416 k/uL (150-450); RBC 4.21 m/uL (3.80-5.40); RDW 12.3 % (11.5-15.5); WBC 9.4 k/uL (3.8-10.6)
[2019-08-22 21:31] LABS: Appearance,Urine Clear (Clear); Bilirubin,Urine 1+ (Negative); Blood,Urine Moderate (Negative); Color,Urine Dark Yellow; Glucose,Urine (UA) Negative (Negative); Ketones,Urine 4+ (Negative); Leukocyte Esterase,Urine Trace (Negative); Mucus,Urine Occasional /hpf; Nitrite,Urine Negative (Negative); PH, Urine 6.5 (5.0-8.0); Protein,Urine 2+ (Negative); RBC,Urine >182 /hpf (0-5); Specific Gravity,Urine 1.032 (1.001-1.035); Squamous Epithelial Cell,Urine <1 /hpf (0-4); WBC,Urine 2 /hpf (0-5)
[2019-08-22 21:34] LABS: ALT 468 U/L (4-34); AST 459 U/L (14-36); African American GFR (CKD) >90 (>60 ml/min/1.73 sqM); Albumin 3.3 g/dL (3.5-5.0); Alkaline Phosphatase 364 U/L (38-126); Anion Gap 9 mmol/L; Blood Urea Nitrogen 12 mg/dL (7-17); Calcium 9.1 mg/dL (8.4-10.2); Carbon Dioxide 30 mmol/L (22-30); Chloride 98 mmol/L (98-107); Glucose 97 mg/dL (74-99); Magnesium 1.7 mg/dL (1.6-2.3); Non-African American GFR(CKD) >90 (>60 ml/min/1.73 sqM); Phosphorus 3.4 mg/dL (2.5-4.5); Potassium 3.8 mmol/L (3.5-5.1); Sodium 137 mmol/L (137-145); Total Bilirubin 1.3 mg/dL (0.2-1.3); Total Protein 6.1 g/dL (6.3-8.2)
[2019-08-22 21:37] LABS: INR 0.9 (<1.2); Partial Thromboplastin Time 22.5 sec (22.0-30.0); Prothrombin Time 9.9 sec (9.0-12.0)
--- NOTE | 2019-08-22 22:03 | XR ---
EXAMINATION: XR chest 2V DATE AND TIME: 08/22/2019 9:47 PM CLINICAL INDICATION: PHH; Weakness TECHNIQUE: Departmental protocol COMPARISON: None FINDINGS: The lungs are clear. The pleural spaces are negative. The cardiac silhouette is not enlarged. The remainder of the mediastinal silhouette is unremarkable. The skeletal structures and soft tissues are negative for acute findings. IMPRESSION: NO ACUTE PROCESS.
--- NOTE | 2019-08-22 22:19 | CT ---
EXAMINATION TYPE: CT abdomen pelvis w con DATE OF EXAM: 08/22/2019 COMPARISON: 12/21/2016 HISTORY: Post-op vomiting. L4/L5 fusion on Monday TECHNIQUE: Helical acquisition of images was performed from the lung bases through the pelvis. Autom ated exposure control for dose reduction was used. CT DLP: 1057.9 mGycm CONTRAST: Performed without Oral Contrast and with IV Contrast, patient injected with 100 mL of Isovu e 300. FINDINGS: LUNG BASES: No acute process. LIVER/GB: No significant abnormality is appreciated. PANCREAS: No significant abnormality is seen. SPLEEN: No significant abnormality is seen. ADRENALS: No significant abnormality is seen. KIDNEYS: No significant abnormality is seen. FREE AIR: No free air is visualized. RETROPERITONEAL ADENOPATHY: None visualized REPRODUCTIVE ORGANS: No significant abnormality is seen URINARY BLADDER: No significant abnormality is seen. PELVIC ADENOPATHY: None visualized. OSSEOUS STRUCTURES: No significant abnormality is seen. BOWEL: There is dilation of the jejunum and ileum with bowel loops measuring up to 4.0 cm caliber. T here is no mesenteric edematous change, but there is mild mural thickening of the dilated loops in th e right midabdomen anteriorly, above the level of the right lower quadrant transition point. There is no pneumatosis. No pneumoperitoneum. The transition point in the right lower quadrant is seen on coronal image 32 axial image 65 and sagit ester image 35. At the transition point there is long segment circumferential moderate mural thickening of the distalmost 25 cm of ileum. The caliber of this long segment terminal ileitis is very narrow. There is a small volume of dependent pelvic cul-de-sac peritoneal fluid, likely reactive. There is no candidate for abscess. No abnormal gas collections. OTHER: No acute vascular finding. IMPRESSION: MODERATE DEGREE SMALL BOWEL OBSTRUCTION DISCUSSED.
[2019-08-22] MEDS ORDERED: ONDANSETRON 4 MG/2 ML VIAL IVP STA (23:38)
[2019-08-23] MEDS: ENOXAPARIN 40 MG/0.4 ML SYRINGE SQ SCH (08:59)
[2019-08-23] MEDS: SODIUM CHLORIDE 0.9% 1,000 ML IV SCH ×2 (08:59→20:15)
[2019-08-23] MEDS ORDERED: BISACODYL 10 MG SUPP RECTAL STA (10:25)
--- NOTE | 2019-08-23 10:57 | P.GSCN ---
History of Present Illness Consult date: 08/23/19 History of present illness: 64-year-old female presents to the emergency department with complaints of abdominal pain, nausea and vomiting. She states that the pain started the day prior to her arrival to the emergency department. She is noted to have had recent back surgery 5 days ago. She states that she has been taking pain medication since the surgery. She states that she has not been able to have a bowel movement in a few days. On workup in the emergency department, CT of the abdomen and pelvis was performed. This was concerning for a possible small bow el obstruction. The patient states that her only previous abdominal surgical history was a laparoscopic cholecystectomy done about 20 years ago. She states that she does feel distended. She states that this morning she has passed gas twice but has been unable to have a bowel movement. Review of Systems All systems: negative Past Medical History Past Medical History: Cancer, Hypertension, Osteoarthritis (OA) Additional Past Medical History / Comment(s): BASAL CELL CA. History of Any Multi-Drug Resistant Organisms: None Reported Past Surgical History: Back Surgery Additional Past Surgical History / Comment(s): BILATERAL KNEE REPLACED. JAW SURGERY. Past Anesthesia/Blood Transfusion Reactions: Motion Sickness, Postoperative Nausea & Vomiting (PONV) Past Psychological History: No Psychological Hx Reported Smoking Status: Never smoker Past Alcohol Use History: None Reported Past Drug Use History: None Reported - Past Family History Mother Family Medical History: Dementia Additional Family Medical History / Comment(s): Mother at age 80 from stroke. Father Family Medical History: No Reported History Additional Family Medical History / Comment(s): Father at age 41 from Hodgkin's lymphoma. Brother(s) Additional Family Medical History / Comment(s): Patient has 1 brother but has no contact with him. Patient has no sisters. Patient has 2 children with no major medical problems. Medications and Allergies Home Medications Medication Instructions Recorded Confirmed Type [facility] Allergy Medication Otc 1 tab PO DAILY 12/21/16 08/22/19 History Acetaminophen Tab [Tylenol Tab] 650 mg PO Q6H PRN 08/12/19 08/22/19 History HYDROcodone/APAP 5-325MG [[place] 1 - 2 tab PO Q4HR PRN 3 Days #84 08/21/19 08/22/19 Rx 5-325] tab Losartan [Cozaar] 25 mg PO DAILY #0 08/21/19 08/22/19 Rx Ondansetron [Zofran] 4 mg PO Q6HR PRN #60 tab 08/21/19 08/22/19 Rx Allergies Allergy/AdvReac Type Severity Reaction Status Date / Time avocado Allergy Nausea & Verified 08/22/19 23:17 Vomiting Milk Containing Products AdvReac GI issues Verified 08/22/19 23:17 [Dairy] Surgical - Exam Osteopathic Statement: *. No significant issues noted on an osteopathic structural exam other than those noted in the History and Physical/Consult. Vital Signs Temp Pulse Resp BP Pulse Ox 99.8 F H 110 H 21 128/64 96 08/22/19 19:11 08/22/19 19:11 08/22/19 19:11 08/22/19 19:11 08/22/19 19:11 - General well nourished, no distress - Eyes PERRL - ENT no hearing loss - Neck trachea midline - Respiratory normal respiratory effort - Abdomen Soft, mild generalized tenderness, moderate distention, no rebound, no guarding - Psychiatric oriented to time, oriented to person, oriented to place Results - Labs 08/22/19 20:59 08/22/19 20:59 Abnormal Lab Results - Last 24 Hours (Table) 08/22/19 08/22/19 08/22/19 Range/Units 20:59 20:59 20:59 Neutrophils # 8.1 H (1.3-7.7) k/uL Lymphocytes # 0.6 L (1.0-4.8) k/uL Creatinine 0.48 L (0.52-1.04) mg/dL AST 459 H (14-36) U/L ALT 468 H (4-34) U/L Alkaline Phosphatase 364 H (38-126) U/L Total Protein 6.1 L (6.3-8.2) g/dL Albumin 3.3 L (3.5-5.0) g/dL Urine Protein 2+ H (Negative) Urine Ketones 4+ H (Negative) Urine Blood Moderate H (Negative) Urine Bilirubin 1+ H (Negative) Ur Leukocyte Esterase Trace H (Negative) Urine RBC >182 H (0-5) /hpf Urine Mucus Occasional H (None) /hpf Diabetes panel 08/22/19 Range/Units 20:59 Sodium 137 (137-145) mmol/L Potassium 3.8 (3.5-5.1) mmol/L Chloride 98 (98-107) mmol/L Carbon Dioxide 30 (22-30) mmol/L BUN 12 (7-17) mg/dL Creatinine 0.48 L (0.52-1.04) mg/dL Glucose 97 (74-99) mg/dL Calcium 9.1 (8.4-10.2) mg/dL AST 459 H (14-36) U/L ALT 468 H (4-34) U/L Alkaline Phosphatase 364 H (38-126) U/L Total Protein 6.1 L (6.3-8.2) g/dL Albumin 3.3 L (3.5-5.0) g/dL Calcium panel 08/22/19 Range/Units 20:59 Calcium 9.1 (8.4-10.2) mg/dL Phosphorus 3.4 (2.5-4.5) mg/dL Albumin 3.3 L (3.5-5.0) g/dL Pituitary panel 08/22/19 Range/Units 20:59 Sodium 137 (137-145) mmol/L Potassium 3.8 (3.5-5.1) mmol/L Chloride 98 (98-107) mmol/L Carbon Dioxide 30 (22-30) mmol/L BUN 12 (7-17) mg/dL Creatinine 0.48 L (0.52-1.04) mg/dL Glucose 97 (74-99) mg/dL Calcium 9.1 (8.4-10.2) mg/dL Adrenal panel 08/22/19 Range/Units 20:59 Sodium 137 (137-145) mmol/L Potassium 3.8 (3.5-5.1) mmol/L Chloride 98 (98-107) mmol/L Carbon Dioxide 30 (22-30) mmol/L BUN 12 (7-17) mg/dL Creatinine 0.48 L (0.52-1.04) mg/dL Glucose 97 (74-99) mg/dL Calcium 9.1 (8.4-10.2) mg/dL Total Bilirubin 1.3 (0.2-1.3) mg/dL AST 459 H (14-36) U/L ALT 468 H (4-34) U/L Alkaline Phosphatase 364 H (38-126) U/L Total Protein 6.1 L (6.3-8.2) g/dL Albumin 3.3 L (3.5-5.0) g/dL Assessment and Plan Plan: 64-year-old female with small bowel obstruction versus ileus - CT of the abdomen and pelvis was reviewed. There is distention of significant portion of small bowel. She has had some emesis episodes but states that she is beginning to have some flatus. Secondary to significant distention of the small bowel and recent emesis episodes, I recommend a nasogastric tube for decompression. Due to her recent back surgery and opiate intake, there is a possibility of ileus and constipation that could be causing the current issue. We will obtain an abdominal x-ray after nasogastric tube was placed..
[2019-08-23] MEDS: ONDANSETRON 4 MG/2 ML VIAL IVP PRN ×2 (11:03→20:18)
--- NOTE | 2019-08-23 12:59 | P.CNOR ---
History of Present Illness - [facility] Consult date: 08/23/19 Requesting physician: Alfredo Scott Consult reason: other (Status post L5-S1 lumbosacral fusion) History of present illness: Patient is a very pleasant 64-year-old female who is seen and examined at the bedside for follow-up evaluation for her lumbar spine. She is status post L5-S1 minimally invasive posterior lateral decompression and fusion with transforaminal lumbar interbody fusion performed on 08/19/2019. Postoperatively she has been improving well in regards to her lumbar spine. She is not currently experiencing significant low back pain. She is not complaining of lower extremity weakness or radiculopathy bilaterally. She has been able to ambulate and urinate without any significant difficulty. She was having some difficulty with nausea postoperatively. She was discharged home on 08/21/2019. She continued to have some nausea at that time but had been improving. She had not eaten a lot of food while in the hospital. She was not using any significant abdominal pain in regards to constipation-like symptoms at that time. She did have some abdominal pain due to the nausea. She did have some Zofran medication at home. Zofran was prescribed at discharge the patient did not obtain his medication due to cost. Since her discharge she has continued to have some nausea and has been unable to have a bowel movement. Patient states she does have a history of previous bowel obstruction which she states was spontaneous. Over the past couple days she has been answered experienced increased abdominal pain along with the nausea. She presented to [facility] last evening for further evaluation. She was found to have a small bowel obstruction. She has been admitted to medicine. She has been seen by Dr. Farr in general surgery. An NG tube has been placed. She states since the placement of the tube she has had improvement of her nausea. She has had a suppository this morning. She still has not had a bowel movement. She is nothing by mouth status. Her most significant complaint currently the NG-tube. Past Medical History Past Medical History: Cancer, Hypertension, Osteoarthritis (OA) Additional Past Medical History / Comment(s): BASAL CELL CA. History of Any Multi-Drug Resistant Organisms: None Reported Past Surgical History: Back Surgery Additional Past Surgical History / Comment(s): BILATERAL KNEE REPLACED. JAW SURGERY. Past Anesthesia/Blood Transfusion Reactions: Motion Sickness, Postoperative Nausea & Vomiting (PONV) Past Psychological History: No Psychological Hx Reported Smoking Status: Never smoker Past Alcohol Use History: None Reported Past Drug Use History: None Reported - Past Family History Mother Family Medical History: Dementia Additional Family Medical History / Comment(s): Mother at age 80 from stroke. Father Family Medical History: No Reported History Additional Family Medical History / Comment(s): Father at age 41 from Hodgkin's lymphoma. Brother(s) Additional Family Medical History / Comment(s): Patient has 1 brother but has no contact with him. Patient has no sisters. Patient has 2 children with no major medical problems. Medications and Allergies Home Medications Medication Instructions Recorded Confirmed Type [facility] Allergy Medication Otc 1 tab PO DAILY 12/21/16 08/22/19 History Acetaminophen Tab [Tylenol Tab] 650 mg PO Q6H PRN 08/12/19 08/22/19 History HYDROcodone/APAP 5-325MG [[place] 1 - 2 tab PO Q4HR PRN 3 Days #84 08/21/19 08/22/19 Rx 5-325] tab Losartan [Cozaar] 25 mg PO DAILY #0 08/21/19 08/22/19 Rx Ondansetron [Zofran] 4 mg PO Q6HR PRN #60 tab 08/21/19 08/22/19 Rx Allergies Allergy/AdvReac Type Severity Reaction Status Date / Time avocado Allergy Nausea & Verified 08/22/19 23:17 Vomiting Milk Containing Products AdvReac GI issues Verified 08/22/19 23:17 [Dairy] Physical Examination Physical exam: Status post surgical day number 4 Patient is awake, alert, and oriented 3 Vital signs stable Good chest excursion with deep inspiration and expiration Dorsiflexion, plantarflexion, and extensor hallucis longus positive sustained bilaterally No signs or symptoms of DVT; no calf pain; pneumatic cuffs not currently intact bilateral lower extremities Dressings are clean, dry, and intact; no erythema, purulence, or signs of infection Dressings are removed during physical examination Incisions are clean, dry, and intact with no active drainage Small mild bruising just distal to the right lumbar surgical site Mild general swelling around the surgical sites with no erythema or sign of infection No pain with palpation of the surgical site Neurovascularly intact bilaterally lower extremities Results Pertinent studies: CT of the abdomen and pelvis taken on 08/22/2019: Moderate degree small bowel obstruction with pins of dilatation of the jejunum and ilium with bowel loops measuring up to 4 cm in caliber with mild mural thickening of the dilated loops in the right mid abdomen anteriorly above the level of the right lower quadrant transition point - Labs Labs: Abnormal Lab Results - Last 24 Hours (Table) 08/22/19 08/22/19 08/22/19 Range/Units 20:59 20:59 20:59 Neutrophils # 8.1 H (1.3-7.7) k/uL Lymphocytes # 0.6 L (1.0-4.8) k/uL Creatinine 0.48 L (0.52-1.04) mg/dL AST 459 H (14-36) U/L ALT 468 H (4-34) U/L Alkaline Phosphatase 364 H (38-126) U/L Total Protein 6.1 L (6.3-8.2) g/dL Albumin 3.3 L (3.5-5.0) g/dL Urine Protein 2+ H (Negative) Urine Ketones 4+ H (Negative) Urine Blood Moderate H (Negative) Urine Bilirubin 1+ H (Negative) Ur Leukocyte Esterase Trace H (Negative) Urine RBC >182 H (0-5) /hpf Urine Mucus Occasional H (None) /hpf H & H 08/22/19 Range/Units 20:59 Hgb 12.7 (11.4-16.0) gm/dL Hct 39.8 (34.0-46.0) % Coagulation 08/22/19 Range/Units 20:59 INR 0.9 (<1.2) Result Diagrams: 08/22/19 20:59 08/22/19 20:59 Assessment and Plan Assessment: Assessment: Status post L5-S1 minimally invasive posterior lateral decompression and fusion with transforaminal lumbar interbody fusion Low back pain L5-S1 spondylolisthesis L5-S1 degenerative disc disease Lower extremity radiculopathy Nausea, improving with NG tube Constipation Small bowel obstruction (1) Fusion of spine of lumbosacral region Current Visit: Yes Status: Acute Code(s): M43.27 - FUSION OF SPINE, LUMBOSACRAL REGION SNOMED Code(s): 63981243 (2) Nausea Current Visit: Yes Status: Acute Code(s): R11.0 - NAUSEA SNOMED Code(s): 968665051 (3) Constipation Current Visit: Yes Status: Acute Code(s): K59.00 - CONSTIPATION, UNSPECIFIED SNOMED Code(s): 63472842 (4) SBO (small bowel obstruction) Current Visit: Yes Status: Acute Code(s): K56.69 - OTHER INTESTINAL OBSTRUCTION * DO NOT USE * SNOMED Code(s): 957771723 (5) Disc disease, degenerative, lumbar or lumbosacral Current Visit: No Status: Acute Code(s): M51.37 - OTHER INTERVERTEBRAL DISC DEGENERATION, LUMBOSACRAL REGION SNOMED Code(s): 48868782 (6) Radiculopathy with lower extremity symptoms Current Visit: No Status: Acute Code(s): M54.10 - RADICULOPATHY, SITE UNSPECIFIED SNOMED Code(s): 92601508 (7) Spondylolisthesis, lumbosacral region Current Visit: No Status: Acute Code(s): M43.17 - SPONDYLOLISTHESIS, LUMBOSACRAL REGION SNOMED Code(s): 883177462 Plan: Plan: 1. Patient has continued to improve postoperatively in regards to her lumbar spine and lower extremities. She may ambulate to tolerance. We're not currently planning for further surgical intervention or further imaging in regards to her lumbar spine during this admission to the hospital. She is having significant difficulty with constipation and has been diagnosed with a small bowel obstruction found on CT imaging. She has had some postoperative nausea which has been improving with placement of the NG tube. She is currently nothing by mouth status. We discussed she should continue following with recommendations as set forth by general surgery and medicine. At this time, patient be clear for discharge from orthopedic spine standpoint. I discussed with the patient she is cleared discharge from our standpoint once cleared by other medical providers. We will plan to have her follow up in outpatient setting as previously scheduled. 2. Dressings have been removed with the surgical site; patient may shower without dressing intact at this time 3. Patient will continue to be seeing them by medicine and general surgery for further treatment and evaluation in regards to her constipation, small bowel obstruction, and nausea Time with Patient: Greater than 30 (Including obtaining history, physical examination, reviewing of imaging, and dictation.)
[2019-08-23] MEDS ORDERED: ENALAPRILAT 1.25 MG/ML 1 ML VIAL IVP PRN (13:26)
--- NOTE | 2019-08-23 13:26 | P.HPIM ---
History of Present Illness H&P Date: 08/23/19 Chief Complaint: Abdominal pain This is a 64-year-old female patient of Dr. Mak Hernandez with past medical history of hypertension, osteoarthritis, basal cell cancer. Patient was hospitalized August [address] Lennon status post L5-S1 minimally invasive posterior lateral decompression and fusion with transforaminal lumbar interbody fusion. Patient was discharged home on August 21. Patient states that she has not been able to pass any gas at home. She's not had a bowel movement. She complains of generalized abdominal pain/pressure. Regarding her recent back surgery, patient states that she has been doing well very well and pain is controlled. Patient came into [facility] emergency center for evaluation. CAT scan of the abdomen and pelvis with contrast revealed moderate degree of small bowel obstruction. Lactic acid 1.0. CBC unremarkable, electrolytes within normal limits, creatinine 0.48, liver function tests revealed total bilirubin 1.3, AST 459, ALT 468, alkaline phosphatase 364. Troponin negative. Albumin 3.3. Urinalysis blood moderate, ketones 4+, leukoesterase trace, RBCs 182. [facility] and started on IV fluids, Zofran for nausea and morphine for pain. Dulcolax suppository ordered. Patient is currently nothing by mouth. Consult in place with Dr. Lennon and Dr. Farr. Review of Systems Constitutional: Reports poor appetite, Denies chills, Denies fatigue, Denies fever Eyes: denies blurred vision, denies pain Ears, nose, mouth and throat: Denies dysphagia, Denies headache, Denies nasal congestion, Denies nasal discharge, Denies sore throat, Denies vertigo Cardiovascular: Denies chest pain, Denies leg edema, Denies lightheadedness, Denies shortness of breath, Denies syncope Respiratory: Denies cough, Denies cough with sputum, Denies dyspnea, Denies excessive sputum, Denies hemoptysis, Denies home oxygen Gastrointestinal: Reports loss of appetite, Reports nausea, reports abdominal pain, Denies diarrhea, Denies vomiting Genitourinary: Denies dysuria, Denies hematuria Musculoskeletal: Denies frequent falls, Denies myalgias Integumentary: Denies pruritus, Denies rash Neurological: Denies change in mentation, Denies change in speech, Denies numbness, Denies weakness Psychiatric: Denies anxiety, Denies depression Endocrine: Denies fatigue, Denies weight change Past Medical History Past Medical History: Cancer, Hypertension, Osteoarthritis (OA) Additional Past Medical History / Comment(s): BASAL CELL CA. History of Any Multi-Drug Resistant Organisms: None Reported Past Surgical History: Back Surgery Additional Past Surgical History / Comment(s): BILATERAL KNEE REPLACED. JAW SURGERY. Past Anesthesia/Blood Transfusion Reactions: Motion Sickness, Postoperative Nausea & Vomiting (PONV) Past Psychological History: No Psychological Hx Reported Smoking Status: Never smoker Past Alcohol Use History: None Reported Additional Past Alcohol Use History / Comment(s): quit smoking @32 years of age, smoked on & off since teens, had quit a few times for 5-7 yrs. Past Drug Use History: None Reported - Past Family History Mother Family Medical History: Dementia Additional Family Medical History / Comment(s): Mother at age 80 from stroke. Father Family Medical History: No Reported History Additional Family Medical History / Comment(s): Father at age 41 from Hodgkin's lymphoma. Brother(s) Additional Family Medical History / Comment(s): Patient has 1 brother but has no contact with him. Patient has no sisters. Patient has 2 children with no major medical problems. Medications and Allergies Home Medications Medication Instructions Recorded Confirmed Type [facility] Allergy Medication Otc 1 tab PO DAILY 12/21/16 08/22/19 History Acetaminophen Tab [Tylenol Tab] 650 mg PO Q6H PRN 08/12/19 08/22/19 History HYDROcodone/APAP 5-325MG [[place] 1 - 2 tab PO Q4HR PRN 3 Days #84 08/21/19 08/22/19 Rx 5-325] tab Losartan [Cozaar] 25 mg PO DAILY #0 08/21/19 08/22/19 Rx Ondansetron [Zofran] 4 mg PO Q6HR PRN #60 tab 08/21/19 08/22/19 Rx Allergies Allergy/AdvReac Type Severity Reaction Status Date / Time avocado Allergy Nausea & Verified 08/22/19 23:17 Vomiting Milk Containing Products AdvReac GI issues Verified 08/22/19 23:17 [Dairy] Physical Exam Vitals: Vital Signs Temp Pulse Pulse Resp BP BP Pulse Ox 08/23/19 07:27 98.8 F 93 16 130/77 93 L 08/23/19 00:45 98.4 F 100 12 125/66 92 L 08/22/19 23:24 18 08/22/19 19:11 99.8 F H 110 H 21 128/64 96 Intake and Output 08/22/19 08/23/19 08/23/19 22:59 06:59 14:59 Other: Voiding Method Toilet Toilet # Voids 1 1 Weight 74.389 kg 74.389 kg Gen: This is a 64-year-old female, resting and recliner. She appears somewhat uncomfortable from nausea. HEENT: Head is atraumatic, normocephalic. Pupils equal, round. Sclerae is anicteric. NECK: Supple. No JVD. No lymphadenopathy. No thyromegaly. LUNGS: Clear to auscultation. No wheezes or rhonchi. No intercostal retractions. HEART: Regular rate and rhythm. No murmur. ABDOMEN: Soft. Bowel sounds are present. No masses. Mild generalized tenderness. EXTREMITIES: No pedal edema. No calf tenderness. NEUROLOGICAL: Patient is awake, alert and oriented x3. Cranial nerves 2 through 12 are grossly intact. Results CBC & Chem 7: 08/22/19 20:59 08/22/19 20:59 Labs: Abnormal Lab Results - Last 24 Hours (Table) 08/22/19 08/22/19 08/22/19 Range/Units 20:59 20:59 20:59 Neutrophils # 8.1 H (1.3-7.7) k/uL Lymphocytes # 0.6 L (1.0-4.8) k/uL Creatinine 0.48 L (0.52-1.04) mg/dL AST 459 H (14-36) U/L ALT 468 H (4-34) U/L Alkaline Phosphatase 364 H (38-126) U/L Total Protein 6.1 L (6.3-8.2) g/dL Albumin 3.3 L (3.5-5.0) g/dL Urine Protein 2+ H (Negative) Urine Ketones 4+ H (Negative) Urine Blood Moderate H (Negative) Urine Bilirubin 1+ H (Negative) Ur Leukocyte Esterase Trace H (Negative) Urine RBC >182 H (0-5) /hpf Urine Mucus Occasional H (None) /hpf Thrombosis Risk Factor Assmnt - DVT/VTE Prophylaxis DVT/VTE Prophylaxis: Pharmacologic Prophylaxis ordered - Choose All That Apply Any of the Below Risk Factors Present?: Yes Each Factor Represents 1 point: Age 41-60 years Other Risk Factors: No Other congenital or acquired thrombophilia - If yes, enter type in comment: No Thrombosis Risk Factor Assessment Total Risk Factor Score: 1 Thrombosis Risk Factor Assessment Level: Low Risk Assessment and Plan Plan: 1. Small bowel obstruction versus ileus. Patient is nothing by mouth. Continue Zofran for nausea, morphine for pain, IV fluids 100 mL per hour. Dul colax suppository ordered. Consult with Dr. Farr. He has ordered NG tube. 2. Status post L5-S1 minimally invasive posterior lateral decompression and fusion with transforaminal lumbar interbody fusion, August 19. Consult with Dr. Lennon 3. Elevated liver function tests of unclear etiology. Acute hepatitis panel. Recheck CMP in the morning. 4. Hypertension. Continue losartan 25 mg daily-on hold. Vasotec IV as needed. 5. History of basal cell cancer, stable. 6. GI prophylaxis. Protonix. 7. DVT prophylaxis. Lovenox. Discharge plan: Home without home care Impression and plan of care have been directed as dictated by the signing physician. Gabbie Castillo nurse practitioner acting as scribe for signing physician.
--- NOTE | 2019-08-23 13:52 | XR ---
EXAMINATION TYPE: XR abdomen acute w cxr DATE OF EXAM: 08/23/2019 COMPARISON: 04/14/2017 HISTORY: Small bowel obstruction TECHNIQUE: Acute abdominal series performed with a frontal chest upright and supine views the abdomen . FINDINGS: Nasogastric tube transverses the thorax the tip in left upper quadrant of the abdomen. Hear t size is normal. The pulmonary vasculature is normal. Some minimal atelectasis is at the left base. There are some dilated air-filled small bowel loops within the midabdomen. Differential air-fluid lev els are not evident. There is present within the colon. No mass effect is evident. Psoas margins are normal. Postsurgical changes are present L5-S1. No mass effect is evident. Prior ch olecystectomy has been performed. IMPRESSION: 1. Findings appear suggestive for focal ileus versus partial small bowel obstruction. 2. Nasogastric tube placement with the tip in the left upper quadrant of the abdomen
[2019-08-23 19:54] LABS: Hepatitis A Antibody IgM Non-Reactive (Non-Reactive); Hepatitis B Core IgM Non-Reactive (Non-Reactive); Hepatitis B Surface Antigen Non-Reactive (Non-Reactive); Hepatitis C IgG Antibody Non-Reactive (Non-Reactive)
[2019-08-23] MEDS: Phenol 1.4% Sore Throat Spray Bottle MUCOUS MEM PRN (23:35)
[2019-08-24] MEDS: SODIUM CHLORIDE 0.9% 1,000 ML IV SCH ×2 (06:16→20:06)
[2019-08-24 07:52] LABS: ALT 221 U/L (4-34); AST 45 U/L (14-36); African American GFR (CKD) >90 (>60 ml/min/1.73 sqM); Alkaline Phosphatase 254 U/L (38-126); Anion Gap 13 mmol/L; Blood Urea Nitrogen 8 mg/dL (7-17); Calcium 8.5 mg/dL (8.4-10.2); Carbon Dioxide 17 mmol/L (22-30); Chloride 109 mmol/L (98-107); Glucose 65 mg/dL (74-99); Non-African American GFR(CKD) >90 (>60 ml/min/1.73 sqM); Potassium 3.7 mmol/L (3.5-5.1); Sodium 139 mmol/L (137-145); Total Bilirubin 0.6 mg/dL (0.2-1.3); Total Protein 5.6 g/dL (6.3-8.2)
[2019-08-24] MEDS: Phenol 1.4% Sore Throat Spray Bottle MUCOUS MEM PRN (09:06)
[2019-08-24] MEDS: ENOXAPARIN 40 MG/0.4 ML SYRINGE SQ SCH (09:07)
--- NOTE | 2019-08-24 10:45 | XR ---
EXAMINATION TYPE: XR abdomen 2V , 4 VIEWS DATE OF EXAM ORDERED: 08/24/2019 HISTORY: ileus. COMPARISON: None. FINDINGS: There is an NG tube in place with its tip in the stomach. There is been a previous cholecy stectomy. There is been previous interpedicular fusion with spacer placement at L5-S1. There are multiple air-fluid levels within both the colon and small bowel. There is no evidence of fr ee air or complete obstruction. No unusual calcifications are seen. IMPRESSION: FINDINGS MOST CONSISTENT WITH GENERALIZED ILEUS.
--- NOTE | 2019-08-24 13:28 | P.PN ---
Subjective Progress Note Date: 08/24/19 This is a 64-year-old female patient of Dr. Mak Hernandez with past medical history of hypertension, osteoarthritis, basal cell cancer. Patient was hospitalized August [address] Lennon status post L5-S1 minimally invasive posterior lateral decompression and fusion with transforaminal lumbar interbody fusion. Patient was discharged home on August 21. Patient states that she has not been able to pass any gas at home. She's not had a bowel movement. She complains of generalized abdominal pain/pressure. Regarding her recent back surgery, patient states that she has been doing well very well and pain is controlled. Patient came into [facility] emergency center for evaluation. CAT scan of the abdomen and pelvis with contrast revealed moderate degree of small bowel obstruction. Lactic acid 1.0. CBC unremarkable, electrolytes within normal limits, creatinine 0.48, liver function tests revealed total bilirubin 1.3, AST 459, ALT 468, alkaline phosphatase 364. Troponin negative. Albumin 3.3. Urinalysis blood moderate, ketones 4+, leukoesterase trace, RBCs 182. Patient was admitted to the MedSurg floor and started on IV fluids, Zofran for nausea and morphine for pain. Dulcolax suppository ordered. Patient is currently nothing by mouth. Consult in place with Dr. Lennon and Dr. Farr. 08/24 patient deteriorates temp of 98.5 pulse 92 respiratory rate 16 blood pressure 138/81 saturating well on room air on assessment of patient's blood work patient has a chloride of 109 sodium 139 creatinine 6.5 AST 45 improved from 459 ALT 221 and alkaline phosphatase of 254 improved from 364 urinalysis from yesterday suggest to ketones, urine RBC more than 182. Repeat UA to be performed today hepatitis panel was negative CT was negative for any liver or gallbladder abnormality. Abdominal series does show some dilated air-fluid small bowel loops within the mid abdomen suggestive of partial small bowel obstruction versus focal ileus. Repeat abdominal x-ray suggested generalized ileus. NG tube placed yesterday can be removed today after discussing with surgery ROS Constitutional: Denies chills, Denies fever, Denies lethargy, Denies malaise, Denies poor appetite, Denies weakness, Denies weight loss Eyes: denies decreased vision, denies diplopia, denies discharge, denies pain Ears: deny: decreased hearing Ears, nose, mouth and throat: Denies dental pain, Denies headache, Denies nasal discharge, Denies nose pain Cardiovascular: Denies chest pain, Denies decreased exercise tolerance, Denies edema, Denies high blood pressure, Denies irregular heart beat, Denies palpitations, Denies paroxysmal nocturnal dyspnea, Denies rapid heart beat, Braden es shortness of breath Respiratory: Denies congestion, Denies cough, Denies cough with sputum, Denies dyspnea, Denies home oxygen, Denies wheezing Gastrointestinal: Denies abdominal pain, Denies change in bowel habits, Denies coffee ground emesis, Denies early satiety, Denies excessive gas, Denies h eartburn, Denies hematemesis, Denies hematochezia, Denies loss of appetite, Denies nausea, Denies vomiting endorses abdominal pain and throat pain from the NG tube Genitourinary: Denies dysuria, Denies flank pain, Denies kidney stones, Denies menorrhagia, Denies urgency, Denies urinary frequency Musculoskeletal: Denies gait dysfunction, Denies limitation of motion, Denies morning stiffness, Denies muscle cramps Integumentary: Denies rash, Denies wounds, Denies brittle nails, Denies change in hair/nails, Denies darkening of skin Neurological: Denies balance difficulties, Denies change in speech, Denies double vision, Denies gait dysfunction, Denies loss of vision, Denies motor disturbance, Denies numbness, Denies paralysis, Denies paresthesias, Denies seizures Psychiatric: Denies anxiety, Denies depression Endocrine: Denies excessive sweating, Denies excessive thirst, Denies high blood sugars, Denies palpitations Hematologic/Lymphatic: Denies easy bruising, Denies lymphadenopathy Objective - Vital Signs Vital signs: Vital Signs Temp 98.2 F 08/24/19 07:00 Pulse 92 08/24/19 07:17 Resp 16 08/24/19 07:17 BP 138/81 08/24/19 07:00 Pulse Ox 95 08/24/19 07:00 Intake & Output 08/23/19 08/24/19 08/24/19 18:59 06:59 18:59 Intake Total 800 Output Total 250 Balance 800 -250 Intake: IV 800 Sodium Chloride 0.9% 1, 800 000 ml @ 100 mls/hr IV . Q10H [facility] Rx#:[id number] Output: Gastric Drainage 250 Other: Voiding Method Toilet Toilet # Voids 1 1 1 # Bowel Movements 1 - Exam Gen: This is a 64-year-old female, resting and recliner. She appears somewhat uncomfortable from nausea. HEENT: Head is atraumatic, normocephalic. Pupils equal, round. Sclerae is anicteric. NECK: Supple. No JVD. No lymphadenopathy. No thyromegaly. LUNGS: Clear to auscultation. No wheezes or rhonchi. No intercostal retractions. HEART: Regular rate and rhythm. No murmur. ABDOMEN: Soft. Bowel sounds are present. No masses. Mild generalized tenderness. EXTREMITIES: No pedal edema. No calf tenderness. NEUROLOGICAL: Patient is awake, alert and oriented x3. Cranial nerves 2 through 12 are grossly intact. - Labs CBC & Chem 7: 08/22/19 20:59 08/24/19 06:42 Labs: Abnormal Lab Results - Last 24 Hours (Table) 08/24/19 Range/Units 06:42 Chloride 109 H (98-107) mmol/L Carbon Dioxide 17 L (22-30) mmol/L Creatinine 0.50 L (0.52-1.04) mg/dL Glucose 65 L (74-99) mg/dL AST 45 H (14-36) U/L ALT 221 H (4-34) U/L Alkaline Phosphatase 254 H (38-126) U/L Total Protein 5.6 L (6.3-8.2) g/dL Albumin 3.0 L (3.5-5.0) g/dL Microbiology - Last 24 Hours (Table) 08/22/19 20:59 Blood Culture - Preliminary Blood No Growth after 24 hours Assessment and Plan Plan: 1. Small bowel obstruction versus ileus. Patient is nothing by mouth. Continue Zofran for nausea, morphine for pain, IV fluids 100 mL per hour. Dulcolax suppository ordered. Consult with Dr. Farr. NG tube removed 2. Status post L5-S1 minimally invasive posterior lateral decompression and fusion with transforaminal lumbar interbody fusion, August 19. Consult with Dr. Lennon 3. Elevated liver function tests of unclear etiology. Acute hepatitis panel. Recheck CMP in the morning. 4. Hypertension. Continue losartan 25 mg daily-on hold. Vasotec IV as needed. 5. History of basal cell cancer, stable. 6. GI prophylaxis. Protonix. 7. DVT prophylaxis. Lovenox. Discharge plan: Home without home care likely Monday
--- NOTE | 2019-08-24 13:47 | P.PN ---
Subjective Progress Note Date: 08/24/19 Patient is doing much better today she's passing gas had small bowel movement. NG tube was DC'd. No nausea vomiting. Objective - Vital Signs Vital signs: Vital Signs Temp 98.2 F 08/24/19 07:00 Pulse 92 08/24/19 07:17 Resp 16 08/24/19 07:17 BP 138/81 08/24/19 07:00 Pulse Ox 95 08/24/19 07:00 Intake & Output 08/23/19 08/24/19 08/24/19 18:59 06:59 18:59 Intake Total 800 Output Total 250 Balance 800 -250 Intake: IV 800 Sodium Chloride 0.9% 1, 800 000 ml @ 100 mls/hr IV . Q10H LAZARA Rx#:[id number] Output: Gastric Drainage 250 Other: Voiding Method Toilet Toilet # Voids 1 1 1 # Bowel Movements 1 - Constitutional General appearance: Present: cooperative - Respiratory Details: Nonlabored - Cardiovascular Rhythm: regular - Gastrointestinal Gastrointestinal Comment(s): Soft nontender nondistended - Psychiatric Psychiatric: Present: A&O x's 3 - Labs CBC & Chem 7: 08/22/19 20:59 08/24/19 06:42 Labs: Abnormal Lab Results - Last 24 Hours (Table) 08/24/19 Range/Units 06:42 Chloride 109 H (98-107) mmol/L Carbon Dioxide 17 L (22-30) mmol/L Creatinine 0.50 L (0.52-1.04) mg/dL Glucose 65 L (74-99) mg/dL AST 45 H (14-36) U/L ALT 221 H (4-34) U/L Alkaline Phosphatase 254 H (38-126) U/L Total Protein 5.6 L (6.3-8.2) g/dL Albumin 3.0 L (3.5-5.0) g/dL Microbiology - Last 24 Hours (Table) 08/22/19 20:59 Blood Culture - Preliminary Blood No Growth after 24 hours Assessment and Plan Assessment: Ileus and constipation Plan: Symptoms seem to be resolved at this time. Patient can start on a clear liquid diet and advance to soft diet as tolerated. Continue with stool softeners and bowel regimen. Patient states a colonoscopy 3 years ago to rule out Crohn's due to her chronic diarrhea. She did have thickening of her terminal ileum on CT. She may benefit from a GI consultation as an outpatient. No plans for acute surgical intervention. She is stable from a surgical standpoint when she is tolerating her diet.
[2019-08-25] MEDS: SODIUM CHLORIDE 0.9% 1,000 ML IV SCH ×2 (01:17→11:01)
[2019-08-25 07:35] LABS: ALT 133 U/L (4-34); AST 23 U/L (14-36); African American GFR (CKD) >90 (>60 ml/min/1.73 sqM); Albumin 2.7 g/dL (3.5-5.0); Alkaline Phosphatase 192 U/L (38-126); Anion Gap 11 mmol/L; Blood Urea Nitrogen 4 mg/dL (7-17); Calcium 8.3 mg/dL (8.4-10.2); Carbon Dioxide 20 mmol/L (22-30); Chloride 109 mmol/L (98-107); Glucose 80 mg/dL (74-99); Non-African American GFR(CKD) >90 (>60 ml/min/1.73 sqM); Sodium 140 mmol/L (137-145); Total Bilirubin 0.5 mg/dL (0.2-1.3); Total Protein 5.3 g/dL (6.3-8.2)
[2019-08-25] MEDS: POTASSIUM CHLORIDE ER 20 MEQ TAB.ER PO SCH ×2 (09:15→11:01)
[2019-08-25] MEDS: ENOXAPARIN 40 MG/0.4 ML SYRINGE SQ SCH (09:15)
--- NOTE | 2019-08-25 09:42 | XR ---
EXAMINATION TYPE: XR abdomen 1V , 2 VIEWS DATE OF EXAM ORDERED: 08/25/2019 HISTORY: Ileus status. COMPARISON: Previous study dated 08/24/2019. FINDINGS: There is been a previous cholecystectomy. There is been a previous interpedicular fusion a t L5-S1. There continue be dilated loops of small bowel throughout the abdomen. There is some gas within the c olon. Overall degree of dilation may have increased slightly. IMPRESSION: CONTINUING CHANGES OF ILEUS OR DISTAL PARTIAL SMALL BOWEL OBSTRUCTION.
[2019-08-25] MEDS ORDERED: POTASSIUM CHLORIDE ER 20 MEQ TAB.ER PO SCH (10:00)
--- NOTE | 2019-08-25 15:14 | P.PN ---
Subjective Progress Note Date: 08/25/19 Patient is having liquid BM and passing flatus. Tolerating low fiber diet Objective - Vital Signs Vital signs: Vital Signs Temp 98.4 F 08/25/19 06:52 Pulse 94 08/25/19 08:10 Resp 16 08/25/19 08:10 BP 131/77 08/25/19 06:52 Pulse Ox 95 08/25/19 06:52 Intake & Output 08/24/19 08/25/19 08/25/19 18:59 06:59 18:59 Intake Total 750 1250 Balance 750 1250 Intake: IV 750 Sodium Chloride 0.9% 1, 750 000 ml @ 100 mls/hr IV . Q10H LAZARA Rx#:[id number] Intake, IV Titration 800 Amount Sodium Chloride 0.9% 1, 800 000 ml @ 100 mls/hr IV . Q10H LAZARA Rx#:[id number] Oral 0 450 Other: Voiding Method Toilet Toilet # Voids 3 - Constitutional General appearance: Present: cooperative - Respiratory Details: nonlabored - Cardiovascular Rhythm: regular - Gastrointestinal Gastrointestinal Comment(s): S/NT - Labs CBC & Chem 7: 08/22/19 20:59 08/25/19 06:38 Labs: Abnormal Lab Results - Last 24 Hours (Table) 08/25/19 Range/Units 06:38 Potassium 3.0 L (3.5-5.1) mmol/L Chloride 109 H (98-107) mmol/L Carbon Dioxide 20 L (22-30) mmol/L BUN 4 L (7-17) mg/dL Creatinine 0.50 L (0.52-1.04) mg/dL Calcium 8.3 L (8.4-10.2) mg/dL ALT 133 H (4-34) U/L Alkaline Phosphatase 192 H (38-126) U/L Total Protein 5.3 L (6.3-8.2) g/dL Albumin 2.7 L (3.5-5.0) g/dL Microbiology - Last 24 Hours (Table) 08/22/19 20:59 Blood Culture - Preliminary Blood No Growth after 48 hours Assessment and Plan Assessment: Ileus and constipation Plan: Symptoms seem to be improved at this time. Continue soft diet as tolerated. Patient states a colonoscopy 3 years ago to rule out Crohn's due to her chronic diarrhea. She did have thickening of her terminal ileum on CT. She may benefit from a GI consultation as an outpatient. No plans for acute surgical intervention. She is stable from a surgical standpoint when she is tolerating her diet.
--- NOTE | 2019-08-25 15:50 | P.PN ---
Subjective Progress Note Date: 08/25/19 This is a 64-year-old female patient of Dr. Mak Hernandez with past medical history of hypertension, osteoarthritis, basal cell cancer. Patient was hospitalized August [address] Lennon status post L5-S1 minimally invasive posterior lateral decompression and fusion with transforaminal lumbar interbody fusion. Patient was discharged home on August 21. Patient states that she has not been able to pass any gas at home. She's not had a bowel movement. She complains of generalized abdominal pain/pressure. Regarding her recent back surgery, patient states that she has been doing well very well and pain is controlled. Patient came into [facility] emergency center for evaluation. CAT scan of the abdomen and pelvis with contrast revealed moderate degree of small bowel obstruction. Lactic acid 1.0. CBC unremarkable, electrolytes within normal limits, creatinine 0.48, liver function tests revealed total bilirubin 1.3, AST 459, ALT 468, alkaline phosphatase 364. Troponin negative. Albumin 3.3. Urinalysis blood moderate, ketones 4+, leukoesterase trace, RBCs 182. Patient was admitted to the MedSurg floor and started on IV fluids, Zofran for nausea and morphine for pain. Dulcolax suppository ordered. Patient is currently nothing by mouth. Consult in place with Dr. Lennon and Dr. Farr. 08/24 patient deteriorates temp of 98.5 pulse 92 respiratory rate 16 blood pressure 138/81 saturating well on room air on assessment of patient's blood work patient has a chloride of 109 sodium 139 creatinine 6.5 AST 45 improved from 459 ALT 221 and alkaline phosphatase of 254 improved from 364 urinalysis from yesterday suggest to ketones, urine RBC more than 182. Repeat UA to be performed today hepatitis panel was negative CT was negative for any liver or gallbladder abnormality. Abdominal series does show some dilated air-fluid small bowel loops within the mid abdomen suggestive of partial small bowel obstruction versus focal ileus. Repeat abdominal x-ray suggested generalized ileus. NG tube placed yesterday can be removed today after discussing with surgery 08/25 patient examined bedside no fever overnightblood pressure 122/65 pulse rate 83. Patient continues to have 5-6 bowel movements in April. Stool studies will be sent tonight and rule out C. diff. Stool cultures negative patient can be sent home. Patient's potassium this morning was 3.2 status post repletion with 40 mEq of potassium. Repeat BMP tomorrow. Abdominal x-ray suggested a generalized ileus. Hold discharge for another 24 hours. Patient may be ready for to be discharged tomorrow if cleared by surgery ROS Constitutional: Denies chills, Denies fever, Denies lethargy, Denies malaise, Denies poor appetite, Denies weakness, Denies weight loss Eyes: denies decreased vision, denies diplopia, denies discharge, denies pain Ears: deny: decreased hearing Ears, nose, mouth and throat: Denies dental pain, Denies headache, Denies nasal discharge, Denies nose pain Cardiovascular: Denies chest pain, Denies decreased exercise tolerance, Denies edema, Denies high blood pressure, Denies irregular heart beat, Denies palpitations, Denies paroxysmal nocturnal dyspnea, Denies rapid heart beat, Denies shortness of breath Respiratory: Denies congestion, Denies cough, Denies cough with sputum, Denies dyspnea, Denies home oxygen, Denies wheezing Gastrointestinal: Denies abdominal pain, Denies change in bowel habits, Denies coffee ground emesis, Denies early satiety, Denies excessive gas, Denies heartburn, Denies hematemesis, Denies hematochezia, Denies loss of appetite, Denies nausea, Denies vomiting endorses abdominal pain and throat pain from the NG tube Genitourinary: Denies dysuria, Denies flank pain, Denies kidney stones, Denies menorrhagia, Denies urgency, Denies urinary frequency Musculoskeletal: Denies gait dysfunction, Denies limitation of motion, Denies morning stiffness, Denies muscle cramps Integumentary: Denies rash, Denies wounds, Denies brittle nails, Denies change in hair/nails, Denies darkening of skin Neurological: Denies balance difficulties, Denies change in speech, Denies double vision, Denies gait dysfunction, Denies loss of vision, Denies motor disturbance, Denies numbness, Denies paralysis, Denies paresthesias, Denies seizures Psychiatric: Denies anxiety, Denies depression Endocrine: Denies excessive sweating, Denies excessive thirst, Denies high blood sugars, Denies palpitations Hematologic/Lymphatic: Denies easy bruising, Denies lymphadenopathy Objective - Vital Signs Vital signs: Vital Signs Temp 98.4 F 08/25/19 06:52 Pulse 94 08/25/19 08:10 Resp 16 08/25/19 08:10 BP 131/77 08/25/19 06:52 Pulse Ox 95 08/25/19 06:52 Intake & Output 08/24/19 08/25/19 08/25/19 18:59 06:59 18:59 Intake Total 750 Balance 750 Intake: IV 750 Sodium Chloride 0.9% 1, 750 000 ml @ 100 mls/hr IV . Q10H LAZARA Rx#:[id number] Oral 0 Other: Voiding Method Toilet Toilet # Voids 3 - Exam Gen: This is a 64-year-old female, resting and recliner. She appears somewhat uncomfortable from nausea. HEENT: Head is atraumatic, normocephalic. Pupils equal, round. Sclerae is anicteric. NECK: Supple. No JVD. No lymphadenopathy. No thyromegaly. LUNGS: Clear to auscultation. No wheezes or rhonchi. No intercostal retractions. HEART: Regular rate and rhythm. No murmur. ABDOMEN: Soft. Bowel sounds are present. No masses. Mild generalized tenderness. EXTREMITIES: No pedal edema. No calf tenderness. NEUROLOGICAL: Patient is awake, alert and oriented x3. Cranial nerves 2 through 12 are grossly intact. - Labs CBC & Chem 7: 08/22/19 20:59 08/25/19 06:38 Labs: Abnormal Lab Results - Last 24 Hours (Table) 08/25/19 Range/Units 06:38 Potassium 3.0 L (3.5-5.1) mmol/L Chloride 109 H (98-107) mmol/L Carbon Dioxide 20 L (22-30) mmol/L BUN 4 L (7-17) mg/dL Creatinine 0.50 L (0.52-1.04) mg/dL Calcium 8.3 L (8.4-10.2) mg/dL ALT 133 H (4-34) U/L Alkaline Phosphatase 192 H (38-126) U/L Total Protein 5.3 L (6.3-8.2) g/dL Albumin 2.7 L (3.5-5.0) g/dL Microbiology - Last 24 Hours (Table) 08/22/19 20:59 Blood Culture - Preliminary Blood No Growth after 48 hours Assessment and Plan Plan: 1. Small bowel obstruction sec to ileus. tolerating low fibre diet . Continue Zofran for nausea, morphine for pain s/p Dulcolax suppository ordered. NG tube removed 2. Status post L5-S1 minimally invasive posterior lateral decompression and fusion with transforaminal lumbar interbody fusion, August 19. Consult with Dr. Lennon 3. Elevated liver function tests of unclear etiology. Acute hepatitis panel. Recheck CMP in the morning. 4. Hypertension. Continue losartan 25 mg daily-on hold. Vasotec IV as needed. 5. History of basal cell cancer, stable. 6. GI prophylaxis. Protonix. 7. DVT prophylaxis. Lovenox. 8. Diarrhea -patient did get one Dulcolax suppository On the day of admission. Multiple episodes of diarrhea concern for colitis. C. diff and stool cultures ordered Discharge plan: Home without home care likely Monday
[2019-08-26] MEDS: SODIUM CHLORIDE 0.9% 1,000 ML IV SCH ×3 (01:57→17:45)
[2019-08-26] MEDS: LOSARTAN 25 MG TAB PO SCH (08:05)
[2019-08-26] MEDS: ENOXAPARIN 40 MG/0.4 ML SYRINGE SQ SCH (08:05)
[2019-08-26 09:31] LABS: HCT 37.5 % (34.0-46.0); HGB 11.8 gm/dL (11.4-16.0); MCH 29.7 pg (25.0-35.0); MCHC 31.3 g/dL (31.0-37.0); MCV 94.7 fL (80.0-100.0); Mean Platelet Volume 7.2; Platelet Count 525 k/uL (150-450); RBC 3.96 m/uL (3.80-5.40); RDW 12.4 % (11.5-15.5); WBC 8.1 k/uL (3.8-10.6)
[2019-08-26 09:40] LABS: ALT 93 U/L (4-34); AST 23 U/L (14-36); African American GFR (CKD) >90 (>60 ml/min/1.73 sqM); Albumin 3.2 g/dL (3.5-5.0); Alkaline Phosphatase 168 U/L (38-126); Anion Gap 9 mmol/L; Blood Urea Nitrogen 3 mg/dL (7-17); Calcium 8.6 mg/dL (8.4-10.2); Carbon Dioxide 26 mmol/L (22-30); Chloride 105 mmol/L (98-107); Glucose 99 mg/dL (74-99); Magnesium 1.5 mg/dL (1.6-2.3); Non-African American GFR(CKD) >90 (>60 ml/min/1.73 sqM); Potassium 2.8 mmol/L (3.5-5.1); Sodium 140 mmol/L (137-145); Total Bilirubin 0.5 mg/dL (0.2-1.3)
[2019-08-26] MEDS ORDERED: Magnesium Replacement Protocol 1 EACH MISC MISCELLANE PRN (11:03)
--- NOTE | 2019-08-26 11:13 | P.DS ---
Providers Date of admission: 08/22/19 23:08 Expected date of discharge: 08/26/19 Attending physician: Bharathi Dia MD Consults: 08/22/19 23:06 Consult Physician Routine Consulting Provider: Kerry Farr Consult Reason/Comments: sbo Do you want consulting provider notified?: Yes Consult Physician Routine Consulting Provider: Radha Lennon Consult Reason/Comments: postOp Do you want consulting provider notified?: Yes Primary care physician: Mak Hernandez [facility] Course: This is a 64-year-old female patient of Dr. Mak Hernandez with past medical history of hypertension, osteoarthritis, basal cell cancer. Patient was hospitalized August [address] Lennon status post L5-S1 minimally invasive posterior lateral decompression and fusion with transforaminal lumbar interbody fusion. Patient was discharged home on August 21. Patient states that she has not been able to pass any gas at home. She's not had a bowel movement. She complains of generalized abdominal pain/pressure. Regarding her recent back surgery, patient states that she has been doing well very well and pain is controlled. Patient came into [facility] emergency center for evaluation. CAT scan of the abdomen and pelvis with contrast revealed moderate degree of small bowel obstruction. Lactic acid 1.0. CBC unremarkable, electrolytes within normal limits, creatinine 0.48, liver function tests revealed total bilirubin 1.3, AST 459, ALT 468, alkaline phosphatase 364. Troponin negative. Albumin 3.3. Urinalysis blood moderate, ketones 4+, leukoesterase trace, RBCs 182. Patient was admitted to the MedSur floor and started on IV fluids, Zofran for nausea and morphine for pain. Dulcolax suppository ordered. Patient is currently nothing by mouth. Consult in place with Dr. Lennon and Dr. Farr. 08/24 patient deteriorates temp of 98.5 pulse 92 respiratory rate 16 blood pressure 138/81 saturating well on room air on assessment of patient's blood work patient has a chloride of 109 sodium 139 creatinine 6.5 AST 45 improved from 459 ALT 221 and alkaline phosphatase of 254 improved from 364 urinalysis from yesterday suggest to ketones, urine RBC more than 182. Repeat UA to be performed today hepatitis panel was negative CT was negative for any liver or gallbladder abnormality. Abdominal series does show some dilated air-fluid small bowel loops within the mid abdomen suggestive of partial small bowel obstruction versus focal ileus. Repeat abdominal x-ray suggested generalized ileus. NG tube placed yesterday can be removed today after discussing with surgery 08/25 patient examined bedside no fever overnightblood pressure 122/65 pulse rate 83. Patient continues to have 5-6 bowel movements in April. Stool studies will be sent tonight and rule out C. diff. Stool cultures negative patient can be sent home. Patient's potassium this morning was 3.2 status post repletion with 40 mEq of potassium. Repeat BMP tomorrow. Abdominal x-ray suggested a generalized ileus. Hold discharge for another 24 hours. Patient may be ready for to be discharged tomorrow if cleared by surgery 08/26: C. difficile toxin came back negative and patient states that diarrhea has now resolved. Repeat lab work revealed potassium 2.8 magnesium 1.5 which will be replaced prior to discharge. Also liver function tests are improved with total bilirubin 0.5, AST 23, ALT 93, alkaline phosphatase 168. BUN 3 and creatinine 0.51. Patient states that she is feeling 100% better. She denies any difficulty with her recent back surgery. Patient will be discharged later today once electrolyte replacements are completed. Discharge diagnoses: 1. Small bowel obstruction sec to ileus. 2. Status post L5-S1 minimally invasive posterior lateral decompression and fusion with transforaminal lumbar interbody fusion, August 19. 3. Elevated liver function tests of unclear etiology. 4. Hypertension. 5. History of basal cell cancer, stable. 6. Diarrhea Discharge plan: Home without home care Impression and plan of care have been directed as dictated by the signing physician. Gabbie Castillo nurse practitioner acting as scribe for signing physician. Patient Condition at Discharge: Good Plan - Discharge Summary Discharge Rx Participant: Yes New Discharge Prescriptions: Continue [facility] Allergy Medication Otc 1 tab PO DAILY Acetaminophen Tab [Tylenol] 650 mg PO Q6H PRN PRN Reason: Pain Losartan [Cozaar] 25 mg PO DAILY #0 HYDROcodone/APAP 5-325MG [Icard 5-325] 1 - 2 tab PO Q4HR PRN 3 Days #84 tab PRN Reason: Pain Ondansetron [Zofran] 4 mg PO Q6HR PRN #60 tab PRN Reason: Nausea Discharge Medication List [facility] Allergy Medication Otc 1 tab PO DAILY 05/24/17 [History] Acetaminophen Tab [Tylenol] 650 mg PO Q6H PRN 08/12/19 [History] HYDROcodone/APAP 5-325MG [Icard 5-325] 1 - 2 tab PO Q4HR PRN 3 Days #84 tab 08/21/19 [Rx] Losartan [Cozaar] 25 mg PO DAILY #0 08/21/19 [Rx] Ondansetron [Zofran] 4 mg PO Q6HR PRN #60 tab 08/21/19 [Rx] Follow up Appointment(s)/Referral(s): Jordy Long PAC [PHYSICIAN [employer]] - 09/03/19 10:00 am (Patient may follow-up with Jordy Long PA-C or Dr. Baldemar Lennon at [facility] as previously scheduled following discharge. ) Mak Hernandez MD [Primary Care Provider] - 09/02/19 11:30 am Activity/Diet/Wound Care/Special Instructions: 1. Patient may shower without a dressing at that time. 2. Patient should refrain from driving until at least after their first follow- up appointment in the office. 3. Patient should avoid excessive bending, twisting, and lifting; no lifting greater than 10 pounds 4. Take medications as prescribed 5. Do not soak in tub Discharge Disposition: HOME SELF-CARE
[2019-08-26] MEDS: MAGNESIUM SULFATE-D5W PMX 1 GM in DEXTROSE/WATER 1 100ML.BAG IVPB SCH ×2 (11:58→13:57)
[2019-08-26] MEDS: POTASSIUM CHLORIDE ER 20 MEQ TAB.ER PO SCH ×6 (11:58→22:03)
--- NOTE | 2019-08-26 15:48 | P.PN ---
Progress Note - Text Progress Note Date: 08/26/19 Orthopedic spine: History of present illness: Patient is a very pleasant 64-year-old female who is seen and examined at the bedside for follow-up evaluation for her lumbar spine. She is status post L5-S1 minimally invasive posterior lateral decompression and fusion with transforaminal lumbar interbody fusion performed on 08/19/2019. Postoperatively she has been improving well in regards to her lumbar spine. She has continued to improve since her readmittance to the hospital. She is not currently experiencing significant low back pain. She is not complaining of lower extremity weakness or radiculopathy bilaterally. She has been able to ambulate and urinate without any significant difficulty. She was having some difficulty with nausea postoperatively. She was discharged home on 08/21/2019. She continued to have some nausea at that time but had been improving. She had not eaten a lot of food while in the hospital. She was not using any significant abdominal pain in regards to constipation-like symptoms at that time. She did have some abdominal pain due to the nausea. She did have some Zofran medication at home. Zofran was prescribed at discharge the patient did not obtain his medication due to cost. Since her discharge she has continued to have some nausea and has been unable to have a bowel movement. Patient states she does have a history of previous bowel obstruction which she states was spontaneous. Prior to her readmission she had been experiencing increased abdominal pain along with the nausea. She presented to [facility] last evening for further evaluation. She was found to have a small bowel obstruction. She has been admitted to medicine. She has been seen by Dr. Farr and Dr. Smith in general surgery. She has had resolution of her small bowel obstruction. She experiences some diarrhea over the weekend. Cultures were negative for Clostridium difficile. She was ready for discharge home today but has had some difficulty with her electrolytes. Her potassium and magnesium were low today. She states they are planning for a blood draw later today and if potassium and magnesium fall within normal limits she will be discharged home today. Physical exam: Status post surgical day number 7 Patient is awake, alert, and oriented 3 Vital signs stable Good chest excursion with deep inspiration and expiration Dorsiflexion, plantarflexion, and extensor hallucis longus positive sustained bilaterally No signs or symptoms of DVT; no calf pain; pneumatic cuffs not currently intact bilateral lower extremities Incisions remain clean, dry, and intact; no erythema, purulence, or signs of infection with no active drainage Small mild bruising just distal to the right lumbar surgical site and the midline of the upper lumbar spine Mild general swelling around the surgical sites with no erythema or sign of infection No pain with palpation of the surgical site Neurovascularly intact bilaterally lower extremities Pertinent studies: CT of the abdomen and pelvis taken on 08/22/2019: Moderate degree small bowel obstruction with pins of dilatation of the jejunum and ilium with bowel loops measuring up to 4 cm in caliber with mild mural thickening of the dilated loops in the right mid abdomen anteriorly above the level of the right lower quadrant transition point Assessment: Status post L5-S1 minimally invasive posterior lateral decompression and fusion with transforaminal lumbar interbody fusion Low back pain L5-S1 spondylolisthesis L5-S1 degenerative disc disease Lower extremity radiculopathy Small bowel obstruction; resolved Hypokalemia Hypomagnesemia Plan: 1. We will continue with our plan as previously set forth. Patient has continued to improve postoperatively in regards to her lumbar spine and lower extremities. She may ambulate to tolerance. We're not currently planning for further surgical intervention or further imaging in regards to her lumbar spine during this admission to the hospital. She is not currently expressing any significant low back pain. She denies lower extremity weakness or radiculopathy bilaterally. At this time, patient is cleared for discharge from orthopedic spine standpoint. We will plan to have her follow up in outpatient setting as previously scheduled. 2. Patient will continue to be seen and examined by medicine for further treatment and evaluation including auditory and balance; the patient is able to have improvement of potassium and magnesium levels she may be cleared for discharge home today
[2019-08-26 16:53] LABS: Magnesium 2.2 mg/dL (1.6-2.3)
[2019-08-26 17:06] LABS: Potassium 2.7 mmol/L (3.5-5.1)
[2019-08-26] MEDS ORDERED: Potassium Replacement Protocol 1 EACH MISC MISCELLANE PRN (18:42)
[2019-08-27] MEDS: SODIUM CHLORIDE 0.9% 1,000 ML IV SCH (00:35)
[2019-08-27 02:27] VITALS: RESP 16
[2019-08-27 07:54] LABS: Basophils % (A) 1 %; Eosinophils # (A) 0.1 k/uL (0-0.7); Eosinophils % (A) 2 %; HCT 36.7 % (34.0-46.0); HGB 11.5 gm/dL (11.4-16.0); Lymphocytes % (A) 15 %; MCHC 31.3 g/dL (31.0-37.0); MCV 95.8 fL (80.0-100.0); Mean Platelet Volume 7.3; Monocytes # (A) 0.3 k/uL (0-1.0); Monocytes % (A) 4 %; Neutrophils # (A) 4.8 k/uL (1.3-7.7); Neutrophils % (A) 76 %; Platelet Count 531 k/uL (150-450); RBC 3.83 m/uL (3.80-5.40); RDW 12.6 % (11.5-15.5); WBC 6.3 k/uL (3.8-10.6)
[2019-08-27] MEDS: LOSARTAN 25 MG TAB PO SCH (08:52)
[2019-08-27] MEDS: ENOXAPARIN 40 MG/0.4 ML SYRINGE SQ SCH (08:53)
[2019-08-27 08:57] VITALS: BP 155/79; PULSE 86; TEMP 97.6
--- NOTE | 2019-08-28 15:39 | P.PN ---
Subjective Progress Note Date: 08/26/19 This is a 64-year-old female patient of Dr. Mak Hernandez with past medical history of hypertension, osteoarthritis, basal cell cancer. Patient was hospitalized August [address] Lennon status post L5-S1 minimally invasive posterior lateral decompression and fusion with transforaminal lumbar interbody fusion. Patient was discharged home on August 21. Patient states that she has not been able to pass any gas at home. She's not had a bowel movement. She complains of generalized abdominal pain/pressure. Regarding her recent back surgery, patient states that she has been doing well very well and pain is controlled. Patient came into [facility] emergency [facility] for evaluation. CAT scan of the abdomen and pelvis with contrast revealed moderate degree of small bowel obstruction. Lactic acid 1.0. CBC unremarkable, electrolytes within normal limits, creatinine 0.48, liver function tests revealed total bilirubin 1.3, AST 459, ALT 468, alkaline phosphatase 364. Troponin negative. Albumin 3.3. Urinalysis blood moderate, ketones 4+, leukoesterase trace, RBCs 182. Patient was admitted to the MedSurg floor and started on IV fluids, Zofran for nausea and morphine for pain. Dulcolax suppository ordered. Patient is currently nothing by mouth. Consult in place with Dr. Lennon and Dr. Farr. 08/24 patient deteriorates temp of 98.5 pulse 92 respiratory rate 16 blood pressure 138/81 saturating well on room air on assessment of patient's blood work patient has a chloride of 109 sodium 139 creatinine 6.5 AST 45 improved from 459 ALT 221 and alkaline phosphatase of 254 improved from 364 urinalysis from yesterday suggest to ketones, urine RBC more than 182. Repeat UA to be performed today hepatitis panel was negative CT was negative for any liver or gallbladder abnormality. Abdominal series does show some dilated air-fluid small bowel loops within the mid abdomen suggestive of partial small bowel obstruction versus focal ileus. Repeat abdominal x-ray suggested generalized ileus. NG tube placed yesterday can be removed today after discussing with surgery 08/25 patient examined bedside no fever overnightblood pressure 122/65 pulse rate 83. Patient continues to have 5-6 bowel movements in April. Stool studies will be sent tonight and rule out C. diff. Stool cultures negative patient can be sent home. Patient's potassium this morning was 3.2 status post repletion with 40 mEq of potassium. Repeat BMP tomorrow. Abdominal x-ray suggested a generalized ileus. Hold discharge for another 24 hours. Patient may be ready for to be discharged tomorrow if cleared by surgery 08/26: C. difficile toxin came back negative and patient states that diarrhea has now resolved. Repeat lab work revealed potassium 2.8 magnesium 1.5 which will be replaced prior to discharge. Also liver function tests are improved with total bilirubin 0.5, AST 23, ALT 93, alkaline phosphatase 168. BUN 3 and creatinine 0.51. Patient states that she is feeling 100% better. She denies any difficulty with her recent back surgery. Patient will be discharged later today once electrolyte replacements are completed.repeat potassium also remained quite low at 2.7and repeat magnesium 2.2. Patient was ordered for additional potassium at discharge was held to be rechecked in the morning. Review Of Systems: Constitutional: No fever, no chills, no night sweats. No weight change. No weakness, fatigue or lethargy. No daytime sleepiness. EENT: No headache. No blurred vision or double vision, no loss of vision. No loss of Hearing, no ringing in the ears, no dizziness. No nasal drainage or congestion. No epistaxis. No sore throat. Lungs: No shortness of breath, cough, no sputum production. No wheezing. Cardiovascular: No chest pain, no lower extremity edema. No palpitations. No paroxysmal nocturnal dyspnea. No orthopnea. No lightheadedness or dizziness. No syncopal episodes. Abdominal: No abdominal pain. No nausea, vomiting. No diarrhea. No constipation. No bloody or tarry stools. No loss of appetite. Genitourinary: No dysuria, increased frequency, urgency. No urinary retention. Musculoskeletal: No myalgias. No muscle weakness, no gait dysfunction, no frequent falls. No back pain. No neck pain. Integumentary: No wounds, no lesions. No rash or pruritus. No unusual bruising. No change in hair or nails. Neurologic: No aphasia. No facial droop. No change in mentation. No head injury. No headache. No paralysis. No paresthesia. Psychiatric: No depression. No anxiety. Endocrine: No abnormal blood sugars. No weight change. Objective - Vital Signs Vital signs: Vital Signs Temp 97.6 F 08/27/19 07:00 Pulse 86 08/27/19 07:00 Resp 16 08/27/19 07:00 BP 155/79 08/27/19 07:00 Pulse Ox 99 08/27/19 07:00 Intake & Output 08/26/19 08/27/19 08/27/19 18:59 06:59 18:59 Intake Total 900 650 200 Balance 900 650 200 Intake: Oral 900 650 200 Other: # Voids 3 3 - Exam Gen: This is a 64-year-old female, resting and recliner. She appears somewhat uncomfortable from nausea. HEENT: Head is atraumatic, normocephalic. Pupils equal, round. Sclerae is anicteric. NECK: Supple. No JVD. No lymphadenopathy. No thyromegaly. LUNGS: Clear to auscultation. No wheezes or rhonchi. No intercostal retractions. HEART: Regular rate and rhythm. No murmur. ABDOMEN: Soft. Bowel sounds are present. No masses. no tenderness. EXTREMITIES: No pedal edema. No calf tenderness. NEUROLOGICAL: Patient is awake, alert and oriented x3. Cranial nerves 2 through 12 are grossly intact. - Labs CBC & Chem 7: 08/27/19 07:24 08/27/19 07:24 Labs: Abnormal Lab Results - Last 24 Hours (Table) 08/26/19 08/27/19 Range/Units 16:11 07:24 Plt Count 531 H (150-450) k/uL Potassium 2.7 L* (3.5-5.1) mmol/L Microbiology - Last 24 Hours (Table) 08/22/19 20:59 Blood Culture - Preliminary Blood No Growth after 96 hours Assessment and Plan Plan: 1. Small bowel obstruction versus ileus. Patient is nothing by mouth. Continue Zofran for nausea, morphine for pain, IV fluids 100 mL per hour. Dulcolax suppository ordered. Consult with Dr. Farr. He has ordered NG tube. 2. Status post L5-S1 minimally invasive posterior lateral decompression and fusion with transforaminal lumbar interbody fusion, August 19. Consult with Dr. Lennon 3. Elevated liver function tests of unclear etiology. Acute hepatitis panel. Recheck CMP in the morning. 4. Hypertension. Continue losartan 25 mg daily-on hold. Vasotec IV as needed. 5. History of basal cell cancer, stable. 6. GI prophylaxis. Protonix. 7. DVT prophylaxis. Lovenox. 8. Significant electrolyte abnormalities with hypokalemia, hypomagnesemia, status post replacement and recheck lab work in the morning Discharge plan: Home without home care Impression and plan of care have been directed as dictated by the signing physician. Gabbie Castillo nurse practitioner acting as scribe for signing physician.
== END 2019-08-27 12:05 | disposition home or self-care (01) | DRG 390 ==
LOC: EC 19:10 → 4SSUR 23:08
PROVIDERS: ADMIT Internal Medicine; ATTEND Internal Medicine
PROC: 0D9670Z Drainage of Stomach with Drainage Device, Via Natural or Artificial Opening (ICD-10-PCS; principal; 2019-08-23)
DX: K56.690 Other partial intestinal obstruction (principal); I10 Essential (primary) hypertension; M19.90 Unspecified osteoarthritis, unspecified site; G89.29 Other chronic pain; E86.0 Dehydration; M51.17 Intervertebral disc disorders with radiculopathy, lumbosacral region; M43.17 Spondylolisthesis, lumbosacral region; R11.0 Nausea; E87.6 Hypokalemia; E83.42 Hypomagnesemia; R94.5 Abnormal results of liver function studies; R19.7 Diarrhea, unspecified; Z98.1 Arthrodesis status; Z79.899 Other long term (current) drug therapy; Z85.828 Personal history of other malignant neoplasm of skin; Z98.890 Other specified postprocedural states; Z87.891 Personal history of nicotine dependence; Z96.653 Presence of artificial knee joint, bilateral; Z90.49 Acquired absence of other specified parts of digestive tract; Z91.011 Allergy to milk products; Z91.018 Allergy to other foods; Z82.0 Family history of epilepsy and other diseases of the nervous system; Z82.3 Family history of stroke; Z80.7 Family history of other malignant neoplasms of lymphoid, hematopoietic and related tissues
CPT/HCPCS: 36415; 71046; 74018; 74019; 74022; 74177; 80053; 80074; 81001; 83605; 83690; 83735; 84100; 84132; 84484; 85025; 85027; 85610; 85730; 87040; 87045; 87046; 87324; 93005; 94760; 96361; 96374; 96375; 99285

== ENCOUNTER 2020-11-21 18:25 | Inpatient (IN) | payer BC, MEDICARE ==
[2020-11-21] MEDS ORDERED: ONDANSETRON 4 MG/2 ML VIAL IVP STA (19:46)
--- NOTE | 2020-11-21 19:52 | ED ---
Nausea/Vomiting/Diarrhea HPI - General Chief complaint: Nausea/Vomiting/Diarrhea Stated complaint: Abd Pain Time Seen by Provider: 11/21/20 18:27 Source: patient, EMS, RN notes reviewed Mode of arrival: EMS Limitations: no limitations - History of Present Illness Initial comments: 65-year-old white female patient, alert and oriented 4, presents to the emergency room with complaints of nausea and vomiting and diffuse abdominal pain since 2 PM today. Patient states this morning she woke up and she wasn't feeling well. But has been sick for the past 10 days with cough and sneezing. Patient denies fevers no sick contacts. Denies hematochezia or hematemesis. Patient states that this has happened to her in the past in 2009 she had a bowel blockage but did not require surgery. Patient has a history of basal cell cancer, hypertension, and lumbar back surgery with screws. MD complaint: nausea, vomiting, abdominal pain -: hour(s) (12) Description of Vomiting: watery, bilious Location: diffuse Radiation: none Severity: mild Severity scale (1-10): 2 Quality: sharp Improves with: vomiting - Related Data Home Medications Medication Instructions Recorded Confirmed Cvs Allergy Medication Otc 1 tab PO DAILY 12/21/16 08/22/19 Acetaminophen Tab [Tylenol] 650 mg PO Q6H PRN 08/12/19 08/22/19 Previous Rx's Medication Instructions Recorded HYDROcodone/APAP 5-325MG [Turpin 1 - 2 tab PO Q4HR PRN 3 Days #84 08/21/19 5-325] tab Losartan [Cozaar] 25 mg PO DAILY #0 08/21/19 Ondansetron [Zofran] 4 mg PO Q6HR PRN #60 tab 08/21/19 Potassium Chloride ER [K-Dur 20] 40 meq PO DAILY #10 tab 08/27/19 Allergies Allergy/AdvReac Type Severity Reaction Status Date / Time avocado Allergy Nausea & Verified 11/21/20 18:32 Vomiting Milk Containing Products AdvReac GI issues Verified 11/21/20 18:32 [Dairy] Review of Systems ROS Statement: Those systems with pertinent positive or pertinent negative responses have been documented in the HPI. ROS Other: All systems not noted in ROS Statement are negative. Past Medical History Past Medical History: Cancer, Hypertension, Osteoarthritis (OA) Additional Past Medical History / Comment(s): BASAL CELL CA. History of Any Multi-Drug Resistant Organisms: None Reported Past Surgical History: Back Surgery Additional Past Surgical History / Comment(s): BILATERAL KNEE REPLACED. JAW SURGERY. Past Anesthesia/Blood Transfusion Reactions: Motion Sickness, Postoperative Nausea & Vomiting (PONV) Past Psychological History: No Psychological Hx Reported Past Alcohol Use History: None Reported Past Drug Use History: None Reported - Past Family History Mother Family Medical History: Dementia Additional Family Medical History / Comment(s): Mother at age 80 from stroke. Father Family Medical History: No Reported History Additional Family Medical History / Comment(s): Father at age 41 from Hodgkin's lymphoma. Brother(s) Additional Family Medical History / Comment(s): Patient has 1 brother but has no contact with him. Patient has no sisters. Patient has 2 children with no m ajor medical problems. General Exam Limitations: no limitations General appearance: alert, in no apparent distress Head exam: Present: atraumatic, normocephalic, normal inspection Eye exam: Present: normal appearance, PERRL, EOMI. Absent: scleral icterus, conjunctival injection, nystagmus, periorbital swelling ENT exam: Present: normal exam, mucous membranes moist Neck exam: Present: normal inspection, full ROM. Absent: tenderness, meningismus, lymphadenopathy, thyromegaly Respiratory exam: Present: normal lung sounds bilaterally. Absent: respiratory distress, wheezes, rales, rhonchi, stridor, chest wall tenderness, accessory muscle use, decreased breath sounds Cardiovascular Exam: Present: normal rhythm, tachycardia, normal heart sounds. Absent: systolic murmur, diastolic murmur, rubs, gallop, clicks GI/Abdominal exam: Present: soft, tenderness, normal bowel sounds. Absent: rebound Extremities exam: Present: normal inspection, full ROM, normal capillary refill. Absent: tenderness, pedal edema, joint swelling, calf tenderness Back exam: Present: normal inspection, other (lumbar surgical scars noted ). Absent: full ROM, tenderness, CVA tenderness (R), CVA tenderness (L) Neurological exam: Present: alert, oriented X3, CN II-XII intact Psychiatric exam: Present: normal affect, normal mood Skin exam: Present: warm, dry, intact, normal color. Absent: rash Course Vital Signs 11/21/20 11/21/2021 18:26 20:16 21:19 Temperature 97.8 F Pulse Rate 101 H 105 H 99 Respiratory 18 18 18 Rate Blood Pressure 133/64 118/52 107/82 O2 Sat by Pulse 98 93 L 90 L Oximetry 11/21/20 22:21 Temperature Pulse Rate 98 Respiratory 18 Rate Blood Pressure 111/62 O2 Sat by Pulse 98 Oximetry Medical Decision Making - Medical Decision Making Patient has a WBC count of 28, platelet count 617, potassium of 5.5, AST and ALT are 589 and 408 respectively, alk phos 162, trop 0.012. EKG sinus rhythm. Patient is Covid negative . CT of the abdomen shows wall thickening of the dis ester ileum involving a long segment approximately 15 cm likely inflammatory bowel disease correlating with her leukocytosis. There is also evidence of a partial obstruction of the small bowel. Patient will be admitted to Dr. Joel with Dr. Schroeder on consult. IV antibiotics started. Case discussed with Dr. Moran. - Lab Data Result diagrams: 11/21/20 19:55 11/21/20 19:55 Lab Results 11/21/20 11/21/20 11/21/20 Range/Units 19:55 19:55 19:55 WBC 28.1 H (3.8-10.6) k/uL RBC 4.81 (3.80-5.40) m/uL Hgb 14.4 (11.4-16.0) gm/dL Hct 44.5 (34.0-46.0) % MCV 92.5 (80.0-100.0) fL MCH 30.0 (25.0-35.0) pg MCHC 32.4 (31.0-37.0) g/dL RDW 13.0 (11.5-15.5) % Plt Count 617 H (150-450) k/uL MPV 7.7 Neutrophils % (Manual) 89 % Band Neuts % (Manual) 7 % Lymphocytes % (Manual) 2 % Monocytes % (Manual) 2 % Neutrophils # (Manual) 26.90 H (1.3-7.7) k/uL Lymphocytes # (Manual) 0.56 L (1.0-4.8) k/uL Monocytes # (Manual) 0.56 (0-1.0) k/uL Nucleated RBCs 0 (0-0) /100 WBC Manual Slide Review Performed Toxic Granulation Present RBC Morphology Normal Sodium 136 L (137-145) mmol/L Potassium 5.5 H (3.5-5.1) mmol/L Chloride 104 (98-107) mmol/L Carbon Dioxide 23 (22-30) mmol/L Anion Gap 9 mmol/L BUN 28 H (7-17) mg/dL Creatinine 0.58 (0.52-1.04) mg/dL Est GFR (CKD-EPI)AfAm >90 (>60 ml/min/1.73 sqM) Est GFR (CKD-EPI)NonAf >90 (>60 ml/min/1.73 sqM) Glucose 122 H (74-99) mg/dL Calcium 9.6 (8.4-10.2) mg/dL Total Bilirubin 1.1 (0.2-1.3) mg/dL AST 589 H (14-36) U/L ALT 408 H (4-34) U/L Alkaline Phosphatase 162 H (38-126) U/L Troponin I (0.000-0.034) ng/mL Total Protein 6.8 (6.3-8.2) g/dL Albumin 4.0 (3.5-5.0) g/dL Urine Color Yellow Urine Appearance Clear (Clear) Urine pH 5.5 (5.0-8.0) Ur Specific Twain 1.024 (1.001-1.035) Urine Protein 1+ H (Negative) Urine Glucose (UA) Negative (Negative) Urine Ketones Negative (Negative) Urine Blood Negative (Negative) Urine Nitrite Negative (Negative) Urine Bilirubin 1+ H (Negative) Urine Urobilinogen 2.0 (<2.0) mg/dL Ur Leukocyte Esterase Small H (Negative) Urine WBC 2 (0-5) /hpf Ur Squamous Epith Cells 3 (0-4) /hpf Urine Mucus Occasional H (None) /hpf Coronavirus (PCR) (Not Detectd) 11/21/20 11/21/20 Range/Units 19:55 19:55 WBC (3.8-10.6) k/uL RBC (3.80-5.40) m/uL Hgb (11.4-16.0) gm/dL Hct (34.0-46.0) % MCV (80.0-100.0) fL MCH (25.0-35.0) pg MCHC (31.0-37.0) g/dL RDW (11.5-15.5) % Plt Count (150-450) k/uL MPV Neutrophils % (Manual) % Band Neuts % (Manual) % Lymphocytes % (Manual) % Monocytes % (Manual) % Neutrophils # (Manual) (1.3-7.7) k/uL Lymphocytes # (Manual) (1.0-4.8) k/uL Monocytes # (Manual) (0-1.0) k/uL Nucleated RBCs (0-0) /100 WBC Manual Slide Review Toxic Granulation RBC Morphology Sodium (137-145) mmol/L Potassium (3.5-5.1) mmol/L Chloride (98-107) mmol/L Carbon Dioxide (22-30) mmol/L Anion Gap mmol/L BUN (7-17) mg/dL Creatinine (0.52-1.04) mg/dL Est GFR (CKD-EPI)AfAm (>60 ml/min/1.73 sqM) Est GFR (CKD-EPI)NonAf (>60 ml/min/1.73 sqM) Glucose (74-99) mg/dL Calcium (8.4-10.2) mg/dL Total Bilirubin (0.2-1.3) mg/dL AST (14-36) U/L ALT (4-34) U/L Alkaline Phosphatase (38-126) U/L Troponin I <0.012 (0.000-0.034) ng/mL Total Protein (6.3-8.2) g/dL Albumin (3.5-5.0) g/dL Urine Color Urine Appearance (Clear) Urine pH (5.0-8.0) Ur Specific Twain (1.001-1.035) Urine Protein (Negative) Urine Glucose (UA) (Negative) Urine Ketones (Negative) Urine Blood (Negative) Urine Nitrite (Negative) Urine Bilirubin (Negative) Urine Urobilinogen (<2.0) mg/dL Ur Leukocyte Esterase (Negative) Urine WBC (0-5) /hpf Ur Squamous Epith Cells (0-4) /hpf Urine Mucus (None) /hpf Coronavirus (PCR) Not Detected (Not Detectd) - EKG Data EKG shows normal: sinus rhythm, intervals (Ventricular rate of 95, OH interval 0.126, QRS 0.84, QTC .444, normal sinus rhythm) Rate: normal Disposition Clinical Impression: Inflammatory bowel disease, Partial small bowel obstruction Disposition: ADMITTED IP TO THIS HOSP Is patient prescribed a controlled substance at d/c from ED?: No Referrals: Mak Hernandez MD [Primary Care Provider] - 1-2 days Decision Date: 11/21/20 Decision Time: 22:39
[2020-11-21 20:16] LABS: HCT 44.5 % (34.0-46.0); HGB 14.4 gm/dL (11.4-16.0); MCHC 32.4 g/dL (31.0-37.0); MCV 92.5 fL (80.0-100.0); Mean Platelet Volume 7.7; Platelet Count 617 k/uL (150-450); RBC 4.81 m/uL (3.80-5.40); WBC 28.1 k/uL (3.8-10.6)
[2020-11-21 20:19] LABS: ALT 408 U/L (4-34); AST 589 U/L (14-36); African American GFR (CKD) >90 (>60 ml/min/1.73 sqM); Alkaline Phosphatase 162 U/L (38-126); Anion Gap 9 mmol/L; Blood Urea Nitrogen 28 mg/dL (7-17); Calcium 9.6 mg/dL (8.4-10.2); Carbon Dioxide 23 mmol/L (22-30); Chloride 104 mmol/L (98-107); Glucose 122 mg/dL (74-99); Non-African American GFR(CKD) >90 (>60 ml/min/1.73 sqM); Sodium 136 mmol/L (137-145); Total Bilirubin 1.1 mg/dL (0.2-1.3); Total Protein 6.8 g/dL (6.3-8.2)
[2020-11-21 20:26] LABS: Potassium 5.5 mmol/L (3.5-5.1)
[2020-11-21 20:29] LABS: Appearance,Urine Clear (Clear); Bilirubin,Urine 1+ (Negative); Blood,Urine Negative (Negative); Color,Urine Yellow; Glucose,Urine (UA) Negative (Negative); Ketones,Urine Negative (Negative); Leukocyte Esterase,Urine Small (Negative); Mucus,Urine Occasional /hpf; Nitrite,Urine Negative (Negative); PH, Urine 5.5 (5.0-8.0); Protein,Urine 1+ (Negative); Specific Gravity,Urine 1.024 (1.001-1.035); Squamous Epithelial Cell,Urine 3 /hpf (0-4); WBC,Urine 2 /hpf (0-5)
[2020-11-21 20:33] LABS: Band Neutrophils % 7 %; Lymphocytes # (M) 0.56 k/uL (1.0-4.8); Monocytes # (M) 0.56 k/uL (0-1.0); Neutrophils % (M) 89 %; Nucleated Red Blood Cells 0 /100 WBC (0-0); Total Cells Counted 100; Toxic Granulation Present
--- NOTE | 2020-11-21 20:41 | XR ---
EXAMINATION TYPE: XR KUB DATE OF EXAM: 11/21/2020 COMPARISON: 08/25/2019 HISTORY: Abdominal pain TECHNIQUE: 2 views upright FINDINGS: There are some small bowel fluid levels. There is no evidence of free air. There are clips from cholecystectomy. There is lower lumbar spine fusion surgery. Lung bases are clear. There are no pathologic calcifications over the kidneys. IMPRESSION: Multiple small bowel fluid levels could relate to ileus or partial mechanical obstruction . This is probably not changed compared to old exam.
--- NOTE | 2020-11-21 22:02 | CT ---
EXAMINATION TYPE: CT abdomen pelvis w con DATE OF EXAM: 11/21/2020 COMPARISON: 08/22/2019 HISTORY: abdominal pain, nausea, vomiting CT DLP: 858 mGycm Automated exposure control for dose reduction was used. CONTRAST: Performed with IV Contrast, patient injected with 100 mL of Isovue 370. Images obtained from the diaphragm to the floor the pelvis with IV contrast. Lung bases are clear. There is no pleural effusion. Heart size is normal. There is no pericardial eff usion. Liver spleen stomach pancreas appear normal. The bile ducts are not dilated. There are clips from cho lecystectomy. There is no adrenal mass. Kidneys show satisfactory contrast opacification. There is no hydronephrosi s. There are left-sided renal parapelvic cysts. Ureters are not dilated. Delayed images show normal r enal excretion. There is no retroperitoneal adenopathy. Bladder is almost empty. There is tiny amount of fluid in the pelvis. There is no inguinal hernia. There are multiple mildly dilated fluid-filled loops of small bowel throughout the abdomen. This exte nds to the terminal ileum. There is mild wall thickening of the terminal ileum. The small bowel is di lated up to 3.7 cm. There is no free air. There is no ascites. There is no mesenteric edema. There is posterior fusion abdi rgery in the lumbar spine at L5-S1. Lumbar vertebra have normal alignment. There is no compression fr acture. The bony pelvis is intact. The hip joints are intact. IMPRESSION: Wall thickening of the distal ileum involving a long segment probably 15 cm that could relate to infl ammatory bowel disease. There is luminal narrowing. There is evidence for partial obstruction of the small bowel. This appears similar to old exam.
[2020-11-21] MEDS ORDERED: NALOXONE 0.4 MG/ML 1 ML VIAL IV PRN (22:30)
[2020-11-21] MEDS ORDERED: ONDANSETRON 4 MG/2 ML VIAL IVP PRN (22:30)
[2020-11-21] MEDS ORDERED: metroNIDAZOLE-NS PMX 500 MG in SALINE 1 100ML.BAG IVPB STA (22:34)
[2020-11-21] MEDS ORDERED: PIPERACILLIN-TAZOBACTAM 3.375 GM in SODIUM CHLORIDE 0.9% 100 ML IVPB STA (22:34)
[2020-11-21] MEDS ORDERED: FAMOTIDINE 20 MG/2 ML VIAL IV STA (22:43)
[2020-11-21] MEDS: SODIUM CHLORIDE 0.9% 1,000 ML IV SCH (22:44)
[2020-11-22 09:50] LABS: Basophils % (A) 0 %; Eosinophils % (A) 0 %; HCT 40.3 % (34.0-46.0); HGB 12.9 gm/dL (11.4-16.0); Lymphocytes # (A) 0.6 k/uL (1.0-4.8); Lymphocytes % (A) 5 %; MCH 30.3 pg (25.0-35.0); MCHC 31.9 g/dL (31.0-37.0); Mean Platelet Volume 6.9; Monocytes # (A) 0.4 k/uL (0-1.0); Monocytes % (A) 3 %; Neutrophils # (A) 9.5 k/uL (1.3-7.7); Neutrophils % (A) 90 %; Platelet Count 472 k/uL (150-450); RBC 4.24 m/uL (3.80-5.40); RDW 13.4 % (11.5-15.5); WBC 10.5 k/uL (3.8-10.6)
[2020-11-22 09:57] LABS: ALT 303 U/L (4-34); AST 108 U/L (14-36); African American GFR (CKD) >90 (>60 ml/min/1.73 sqM); Albumin 3.2 g/dL (3.5-5.0); Albumin/Globulin Ratio 1.3; Alkaline Phosphatase 142 U/L (38-126); Anion Gap 7 mmol/L; Blood Urea Nitrogen 23 mg/dL (7-17); Calcium 8.6 mg/dL (8.4-10.2); Carbon Dioxide 27 mmol/L (22-30); Chloride 105 mmol/L (98-107); Globulin 2.4 g/dL; Glucose 101 mg/dL (74-99); Non-African American GFR(CKD) >90 (>60 ml/min/1.73 sqM); Sodium 139 mmol/L (137-145); Total Bilirubin 0.6 mg/dL (0.2-1.3); Total Protein 5.6 g/dL (6.3-8.2)
[2020-11-22 10:06] LABS: Potassium 4.3 mmol/L (3.5-5.1)
--- NOTE | 2020-11-22 10:52 | P.HPIM ---
History of Present Illness H&P Date: 11/22/20 Chief Complaint: Vomiting, abdominal pain, History of present illness This is a 65-year-old patient of Dr. Agus Crystal with a past medical history of ba rick cell carcinoma, hypertension, previous small bowel obstruction 4 last one in 2019. No surgical interventions were needed for any of the bowel obstructions. Patient presented to the emergency room yesterday after one day of sudden onset of vomiting with abdominal distention and abdominal pain. This is similar to her previous small bowel obstructions which prompted her to come to the emergency room. Patient states that the vomiting and nausea has improved. She is now having episodes of diarrhea. The CT did show wall thickening of the distal ileum involving a long segment highly 15 cm that could relate to inflammatory bowel disease. There is luminal narrowing. There is evidence of partial obstruction of the small bowel. This is similar to the previous exam. At this time patient is found resting in bed with complaints of diarrhea. Patient states that the nausea and vomiting has improved. Repeat labs show the VBC 10.5 which is down from 28.1 yesterday. Hemoglobin 12.9, potassium 4.3 which is down from 5.5, BUN 23 creatinine 0.69 AST improved at 108 compared to 589, ALT improved at 303 compared to 408, alkaline phosphatase improved from 162-142. COVID-19 was not detected. She remains afebrile, pulse rate 98, respirations 18, blood pressure 134/64, pulse ox 95% on room air. Review Of Systems: Constitutional: No fever, no chills, no night sweats. No weight change. No weakness, fatigue or lethargy. No daytime sleepiness. EENT: No headache. No blurred vision or double vision, no loss of vision. No loss of Hearing, no ringing in the ears, no dizziness. No nasal drainage or congestion. No epistaxis. No sore throat. Lungs: No shortness of breath, cough, no sputum production. No wheezing. Cardiovascular: No chest pain, no lower extremity edema. No palpitations. No paroxysmal nocturnal dyspnea. No orthopnea. No lightheadedness or dizziness. No syncopal episodes. Abdominal: reports abdominal discomfort. reports nausea, vomiting - improved. reports diarrhea. No constipation. No bloody or tarry stools. no loss of naeem etite. Genitourinary: No dysuria, increased frequency, urgency. No urinary retention. Musculoskeletal: No myalgias. No muscle weakness, no gait dysfunction, no frequent falls. No back pain. No neck pain. Integumentary: No wounds, no lesions. No rash or pruritus. No unusual bruising. No change in hair or nails. Neurologic: No aphasia. No facial droop. No change in mentation. No head injury. No headache. No paralysis. No paresthesia. Psychiatric: No depression. No anxiety. No mood swings. Endocrine: No abnormal blood sugars. No weight change. No excessive sweating or thirst. Social history: Previous smoker quit approximately 30 years ago smoked approximately half a pack for 10 years, denies EtOH, retired community health worker. Family history: Patient is , 2 children who are healthy, 2 brothers one in an accident and one healthy, mother at age 80 of CVA, dad at 41 due to Hodgkin's lymphoma Physical examination General Appearance: Alert, cooperative, no distress, appears stated age. Neck HEENT: Supple, no lymphadenopathy, no thyroid enlargement, no carotid bruits. Lungs: Clear to auscultation without crackles or wheezes no rhonchi, no deformity. Chest Wall: Chest wall normal expansion with deep inspiration no tenderness and no deformity was found on exam, no costochondral pain or discomfort. Heart: Regular rate and rhythm, S1, S2 normal, no murmur, rub or gallop. Back: Symmetric, no curvature, ROM normal, no CVA tenderness. Abdomen: Soft, distennded, non-tender, no rebound or rigidity, no hepatosplenomegaly. Extremities: Extremities normal, atraumatic, no cyanosis or edema. Pulses: 2+ and symmetric. Skin: Skin color, texture, tugor normal, no rashes or lesions. Neurologic: Alert oriented x3 cranial nerves II through XII intact, no motor deficit, no abnormal balance or gait Assessment and plan 1. Abdominal pain with colitis, small bowel obstruction. Nothing by mouth. Continue with hydration. Consult surgery. 2. Colitis rule out ischemia versus infective. Zosyn and Flagyl started. Awaiting cultures. Repeat CBC. 3. Leukocytosis sepsis versus inflammatory. Continue IV antibiotics. Awaiting cultures. 4. Nausea and Vomiting. Improved. Zofran 4 mg every 8 hours as needed for nausea vomiting 5. Hypertension, continue Cozaar 50 mg by mouth daily 6. GI prophylaxis: Pepcid 20 mg 7. DVT prophylaxis pneumatic compression stockings CODE STATUS: Full code Discharge plan: Patient will spend a minimum of 2 nights stay in hospital more than likely home Monday. Impression and plan of care have been directed as dictated by the signing physician. Shannon Villarreal nurse practitioner acting as scribe for signing physician. Past Medical History Past Medical History: Cancer, Hypertension, Osteoarthritis (OA) Additional Past Medical History / Comment(s): BASAL CELL CA. History of Any Multi-Drug Resistant Organisms: None Reported Past Surgical History: Back Surgery Additional Past Surgical History / Comment(s): BILATERAL KNEE REPLACED. JAW SURGERY. Past Anesthesia/Blood Transfusion Reactions: Motion Sickness, Postoperative Nausea & Vomiting (PONV) Past Psychological History: No Psychological Hx Reported Past Alcohol Use History: None Reported Past Drug Use History: None Reported - Past Family History Mother Family Medical History: Dementia Additional Family Medical History / Comment(s): Mother at age 80 from stroke. Father Family Medical History: No Reported History Additional Family Medical History / Comment(s): Father at age 41 from Hodgkin's lymphoma. Brother(s) Additional Family Medical History / Comment(s): Patient has 1 brother but has no contact with him. Patient has no sisters. Patient has 2 children with no major medical problems. Medications and Allergies Home Medications Medication Instructions Recorded Confirmed Type Losartan [Cozaar] 50 mg PO DAILY 11/21/20 11/21/20 History Allergies Allergy/AdvReac Type Severity Reaction Status Date / Time avocado Allergy Nausea & Verified 11/21/20 22:51 Vomiting Milk Containing Products AdvReac GI issues Verified 11/21/20 22:51 [Dairy] Physical Exam Vitals: Vital Signs Temp Pulse Resp BP Pulse Ox 11/22/20 05:34 98 F 98 18 134/64 95 11/22/20 00:57 90 18 112/75 92 L 11/21/20 22:21 98 18 111/62 98 11/21/20 21:19 99 18 107/82 90 L 11/21/20 20:16 105 H 18 118/52 93 L 11/21/20 18:26 97.8 F 101 H 18 133/64 98 Intake and Output 04/24/21 04/25/21 04/25/21 22:59 06:59 14:59 Other: # Bowel Movements 2 Weight 74.843 kg Results CBC & Chem 7: 11/22/20 09:19 11/22/20 09:19 Labs: Abnormal Lab Results - Last 24 Hours (Table) 11/21/20 11/21/20 11/21/20 Range/Units 19:55 19:55 19:55 WBC 28.1 H (3.8-10.6) k/uL Plt Count 617 H (150-450) k/uL Neutrophils # (1.3-7.7) k/uL Neutrophils # (Manual) 26.90 H (1.3-7.7) k/uL Lymphocytes # (1.0-4.8) k/uL Lymphocytes # (Manual) 0.56 L (1.0-4.8) k/uL Sodium 136 L (137-145) mmol/L Potassium 5.5 H (3.5-5.1) mmol/L BUN 28 H (7-17) mg/dL Glucose 122 H (74-99) mg/dL AST 589 H (14-36) U/L ALT 408 H (4-34) U/L Alkaline Phosphatase 162 H (38-126) U/L Total Protein (6.3-8.2) g/dL Albumin (3.5-5.0) g/dL Urine Protein 1+ H (Negative) Urine Bilirubin 1+ H (Negative) Ur Leukocyte Esterase Small H (Negative) Urine Mucus Occasional H (None) /hpf 11/22/20 11/22/20 Range/Units 09:19 09:19 WBC (3.8-10.6) k/uL Plt Count 472 H (150-450) k/uL Neutrophils # 9.5 H (1.3-7.7) k/uL Neutrophils # (Manual) (1.3-7.7) k/uL Lymphocytes # 0.6 L (1.0-4.8) k/uL Lymphocytes # (Manual) (1.0-4.8) k/uL Sodium (137-145) mmol/L Potassium (3.5-5.1) mmol/L BUN 23 H (7-17) mg/dL Glucose 101 H (74-99) mg/dL AST 108 H (14-36) U/L ALT 303 H (4-34) U/L Alkaline Phosphatase 142 H (38-126) U/L Total Protein 5.6 L (6.3-8.2) g/dL Albumin 3.2 L (3.5-5.0) g/dL Urine Protein (Negative) Urine Bilirubin (Negative) Ur Leukocyte Esterase (Negative) Urine Mucus (None) /hpf
[2020-11-22] MEDS: SODIUM CHLORIDE 0.9% 1,000 ML IV SCH (13:16)
[2020-11-22] MEDS: LOSARTAN 50 MG TAB PO SCH (13:16)
[2020-11-22] MEDS ORDERED: ARTIFICIAL TEARS-HYPROMELLOSE DROPS 15 ML BTL BOTH EYES PRN (14:53)
--- NOTE | 2020-11-22 15:32 | P.GSCN ---
History of Present Illness Consult date: 11/22/20 Reason for Consult: Small bowel obstruction History of present illness: This a 65-year-old female who was admitted through the emergency room with complaints of abdominal pain distention. Patient that she was very bloated yesterday. She did have some problems of flatus today. Her CAT scan is suggestive of a partial small bowel instructions secondary to inflammation of the terminal ileum. Patient's had several attacks of these the past. Her last admission was in July where her x-ray showed the same findings of inflamed terminal ileum. Past Medical History Past Medical History: Cancer, Hypertension, Osteoarthritis (OA) Additional Past Medical History / Comment(s): BASAL CELL CA. History of Any Multi-Drug Resistant Organisms: None Reported Past Surgical History: Back Surgery, Cholecystectomy, Tonsillectomy Additional Past Surgical History / Comment(s): BILATERAL KNEE REPLACED. JAW SURG SHIRA. Past Anesthesia/Blood Transfusion Reactions: Motion Sickness, Postoperative Nausea & Vomiting (PONV) Additional Past Anesthesia/Blood Transfusion Reaction / Comm: post op ileus Past Psychological History: No Psychological Hx Reported Smoking Status: Former smoker Past Alcohol Use History: None Reported Additional Past Alcohol Use History / Comment(s): quit smoking @32 years of age, smoked on & off since teens, had quit a few times for 5-7 yrs. Past Drug Use History: None Reported - Past Family History Mother Family Medical History: Dementia Additional Family Medical History / Comment(s): Mother at age 80 from stroke. Father Family Medical History: No Reported History Additional Family Medical History / Comment(s): Father at age 41 from Hodgkin's lymphoma. Brother(s) Additional Family Medical History / Comment(s): Patient has 1 brother but has no contact with him. Patient has no sisters. Patient has 2 children with no major medical problems. Medications and Allergies Home Medications Medication Instructions Recorded Confirmed Type Losartan [Cozaar] 50 mg PO DAILY 11/21/20 11/21/20 History Allergies Allergy/AdvReac Type Severity Reaction Status Date / Time avocado Allergy Nausea & Verified 11/21/20 22:51 Vomiting Milk Containing Products AdvReac GI issues Verified 11/21/20 22:51 [Dairy] Surgical - Exam Vital Signs Temp Pulse Resp BP Pulse Ox 97.8 F 101 H 18 133/64 98 11/21/20 18:26 11/21/20 18:26 11/21/20 18:26 11/21/20 18:26 11/21/20 18:26 - General well developed, no distress - Eyes PERRL - ENT normal pinna - Neck no masses - Respiratory normal expansion - Cardiovascular Rhythm: regular - Abdomen Abdomen: soft, non tender Results - Labs 11/22/20 09:19 11/22/20 09:19 Abnormal Lab Results - Last 24 Hours (Table) 11/21/20 11/21/20 11/21/20 Range/Units 19:55 19:55 19:55 WBC 28.1 H (3.8-10.6) k/uL Plt Count 617 H (150-450) k/uL Neutrophils # (1.3-7.7) k/uL Neutrophils # (Manual) 26.90 H (1.3-7.7) k/uL Lymphocytes # (1.0-4.8) k/uL Lymphocytes # (Manual) 0.56 L (1.0-4.8) k/uL Sodium 136 L (137-145) mmol/L Potassium 5.5 H (3.5-5.1) mmol/L BUN 28 H (7-17) mg/dL Glucose 122 H (74-99) mg/dL AST 589 H (14-36) U/L ALT 408 H (4-34) U/L Alkaline Phosphatase 162 H (38-126) U/L Total Protein (6.3-8.2) g/dL Albumin (3.5-5.0) g/dL Urine Protein 1+ H (Negative) Urine Bilirubin 1+ H (Negative) Ur Leukocyte Esterase Small H (Negative) Urine Mucus Occasional H (None) /hpf 11/22/20 11/22/20 Range/Units 09:19 09:19 WBC (3.8-10.6) k/uL Plt Count 472 H (150-450) k/uL Neutrophils # 9.5 H (1.3-7.7) k/uL Neutrophils # (Manual) (1.3-7.7) k/uL Lymphocytes # 0.6 L (1.0-4.8) k/uL Lymphocytes # (Manual) (1.0-4.8) k/uL Sodium (137-145) mmol/L Potassium (3.5-5.1) mmol/L BUN 23 H (7-17) mg/dL Glucose 101 H (74-99) mg/dL AST 108 H (14-36) U/L ALT 303 H (4-34) U/L Alkaline Phosphatase 142 H (38-126) U/L Total Protein 5.6 L (6.3-8.2) g/dL Albumin 3.2 L (3.5-5.0) g/dL Urine Protein (Negative) Urine Bilirubin (Negative) Ur Leukocyte Esterase (Negative) Urine Mucus (None) /hpf Diabetes panel 11/21/20 11/22/20 Range/Units 19:55 09:19 Sodium 136 L 139 (137-145) mmol/L Potassium 5.5 H 4.3 (3.5-5.1) mmol/L Chloride 104 105 (98-107) mmol/L Carbon Dioxide 23 27 (22-30) mmol/L BUN 28 H 23 H (7-17) mg/dL Creatinine 0.58 0.69 (0.52-1.04) mg/dL Glucose 122 H 101 H (74-99) mg/dL Calcium 9.6 8.6 (8.4-10.2) mg/dL AST 589 H 108 H (14-36) U/L ALT 408 H 303 H (4-34) U/L Alkaline Phosphatase 162 H 142 H (38-126) U/L Total Protein 6.8 5.6 L (6.3-8.2) g/dL Albumin 4.0 3.2 L (3.5-5.0) g/dL Calcium panel 11/21/20 11/22/20 Range/Units 19:55 09:19 Calcium 9.6 8.6 (8.4-10.2) mg/dL Albumin 4.0 3.2 L (3.5-5.0) g/dL Pituitary panel 11/21/20 11/22/20 Range/Units 19:55 09:19 Sodium 136 L 139 (137-145) mmol/L Potassium 5.5 H 4.3 (3.5-5.1) mmol/L Chloride 104 105 (98-107) mmol/L Carbon Dioxide 23 27 (22-30) mmol/L BUN 28 H 23 H (7-17) mg/dL Creatinine 0.58 0.69 (0.52-1.04) mg/dL Glucose 122 H 101 H (74-99) mg/dL Calcium 9.6 8.6 (8.4-10.2) mg/dL Adrenal panel 11/21/20 11/22/20 Range/Units 19:55 09:19 Sodium 136 L 139 (137-145) mmol/L Potassium 5.5 H 4.3 (3.5-5.1) mmol/L Chloride 104 105 (98-107) mmol/L Carbon Dioxide 23 27 (22-30) mmol/L BUN 28 H 23 H (7-17) mg/dL Creatinine 0.58 0.69 (0.52-1.04) mg/dL Glucose 122 H 101 H (74-99) mg/dL Calcium 9.6 8.6 (8.4-10.2) mg/dL Total Bilirubin 1.1 0.6 (0.2-1.3) mg/dL AST 589 H 108 H (14-36) U/L ALT 408 H 303 H (4-34) U/L Alkaline Phosphatase 162 H 142 H (38-126) U/L Total Protein 6.8 5.6 L (6.3-8.2) g/dL Albumin 4.0 3.2 L (3.5-5.0) g/dL - Imaging CT scan - abdomen: report reviewed (Luminal changes of the terminal ileum due to inflammatory changes..) Assessment and Plan Assessment: Intermittent small bowel obstruction related to terminal ileum inflammation. Patient will undergo exploratory she'll and smaller section in the a.m.
[2020-11-23] MEDS: SODIUM CHLORIDE 0.9% 1,000 ML IV SCH ×2 (06:56→12:01)
[2020-11-23 07:20] LABS: Basophils % (A) 0 %; Eosinophils # (A) 0.2 k/uL (0-0.7); Eosinophils % (A) 3 %; HCT 39.4 % (34.0-46.0); HGB 12.2 gm/dL (11.4-16.0); Lymphocytes # (A) 0.9 k/uL (1.0-4.8); Lymphocytes % (A) 14 %; MCH 29.5 pg (25.0-35.0); MCHC 30.8 g/dL (31.0-37.0); MCV 95.8 fL (80.0-100.0); Mean Platelet Volume 7.1; Monocytes # (A) 0.3 k/uL (0-1.0); Monocytes % (A) 5 %; Neutrophils # (A) 4.5 k/uL (1.3-7.7); Neutrophils % (A) 75 %; Platelet Count 436 k/uL (150-450); RBC 4.11 m/uL (3.80-5.40); RDW 13.2 % (11.5-15.5)
[2020-11-23] MEDS: FAMOTIDINE 20 MG/2 ML VIAL IV SCH (08:09)
[2020-11-23] MEDS: LOSARTAN 50 MG TAB PO SCH (08:09)
[2020-11-23 11:45] LABS: African American GFR (CKD) 117.7 (60.0-200.0); Albumin 3.3 g/dL (3.80-4.90); Albumin/Globulin Ratio 1.94 (1.60-3.17); Calcium 8.5 mg/dL (8.7-10.3); Globulin 1.7 g/dL (1.6-3.3); Non-African American GFR(CKD) 101.6 (60.0-200.0); Total Bilirubin 0.4 mg/dL (0.3-1.2)
--- NOTE | 2020-11-23 13:20 | P.PN ---
Subjective Progress Note Date: 11/23/20 Subjective: This note is from 11/23/2020 Chief Complaint: Vomiting, abdominal pain, History of present illness This is a 65-year-old patient of Dr. Agus Hernandez with a past medical history of basal cell carcinoma, hypertension, previous small bowel obstruction 4 last one in 2019. No surgical interventions were needed for any of the bowel ob structions. Patient presented to the emergency room yesterday after one day of sudden onset of vomiting with abdominal distention and abdominal pain. This is similar to her previous small bowel obstructions which prompted her to come to the emergency room. Patient states that the vomiting and nausea has improved. She is now having episodes of diarrhea. The CT did show wall thickening of the distal ileum involving a long segment highly 15 cm that could relate to inflammatory bowel disease. There is luminal narrowing. There is evidence of partial obstruction of the small bowel. This is similar to the previous exam. At this time patient is found resting in bed with complaints of diarrhea. Patient states that the nausea and vomiting has improved. Repeat labs show the VBC 10.5 which is down from 28.1 yesterday. Hemoglobin 12.9, potassium 4.3 which is down from 5.5, BUN 23 creatinine 0.69 AST improved at 108 compared to 589, ALT improved at 303 compared to 408, alkaline phosphatase improved from 162-142. COVID-19 was not detected. She remains afebrile, pulse rate 98, respirations 18, blood pressure 134/64, pulse ox 95% on room air. 11/23: Patient is feeling better no further nausea and vomiting she had bowel movement but continued having significant bloating sensation and discomfort, was seen general surgery and with intermittent small bowel obstruction related to terminal ileum inflammation patient will be going for exploratory she'll most likely have small section. Review Of Systems: Constitutional: No fever, no chills, no night sweats. No weight change. No weakness, fatigue or lethargy. No daytime sleepiness. EENT: No headache. No blurred vision or double vision, no loss of vision. No loss of Hearing, no ringing in the ears, no dizziness. No nasal drainage or congestion. No epistaxis. No sore throat. Lungs: No shortness of breath, cough, no sputum production. No wheezing. Cardiovascular: No chest pain, no lower extremity edema. No palpitations. No paroxysmal nocturnal dyspnea. No orthopnea. No lightheadedness or dizziness. No syncopal episodes. Abdominal: reports abdominal discomfort. reports nausea, vomiting - improved. reports diarrhea. No constipation. No bloody or tarry stools. no loss of appetite. Genitourinary: No dysuria, increased frequency, urgency. No urinary retention. Musculoskeletal: No myalgias. No muscle weakness, no gait dysfunction, no frequent falls. No back pain. No neck pain. Integumentary: No wounds, no lesions. No rash or pruritus. No unusual bruising. No change in hair or nails. Neurologic: No aphasia. No facial droop. No change in mentation. No head injury. No headache. No paralysis. No paresthesia. Psychiatric: No depression. No anxiety. No mood swings. Endocrine: No abnormal blood sugars. No weight change. No excessive sweating or thirst. Physical examination General Appearance: Alert, cooperative, no distress, appears stated age. Neck HEENT: Supple, no lymphadenopathy, no thyroid enlargement, no carotid bruits. Lungs: Clear to auscultation without crackles or wheezes no rhonchi, no deformity. Chest Wall: Chest wall normal expansion with deep inspiration no tenderness and no deformity was found on exam, no costochondral pain or discomfort. Heart: Regular rate and rhythm, S1, S2 normal, no murmur, rub or gallop. Back: Symmetric, no curvature, ROM normal, no CVA tenderness. Abdomen: Soft, distennded, non-tender, no rebound or rigidity, no hepatosplenomegaly. Extremities: Extremities normal, atraumatic, no cyanosis or edema. Pulses: 2+ and symmetric. Skin: Skin color, texture, tugor normal, no rashes or lesions. Neurologic: Alert oriented x3 cranial nerves II through XII intact, no motor deficit, no abnormal balance or gait Assessment and plan 1. Abdominal pain with colitis, small bowel obstruction. Nothing by mouth. Continue with hydration. Consult surgery. With intermittent small bowel obstruction and terminal ileum inflammation patient is going for exploratory probably small segmental resection. 2. Colitis rule out ischemia versus infective. Zosyn and Flagyl started. A waiting cultures. Repeat CBC. Continue current management patient is responding well to it so far. 3. Leukocytosis sepsis versus inflammatory. Continue IV antibiotics. Cultures negative and white blood cell is down 6000 only. 4. Nausea and Vomiting. Secondary to partial obstruction much better so far continue hydration and Zofran as needed. 5. Hypertension, continue Cozaar 50 mg by mouth daily 6. GI prophylaxis: Pepcid 20 mg 7. DVT prophylaxis pneumatic compression stockings CODE STATUS: Full code Planning: Patient be going for exploratory surgery and small segmental resection following surgery with the side and further plan for discharge Objective - Vital Signs Vital signs: Vital Signs Temp 98.2 F 11/23/20 05:00 Pulse 77 11/23/20 05:00 Resp 18 11/23/20 05:00 BP 117/66 11/23/20 05:00 Pulse Ox 94 L 11/23/20 05:00 Intake & Output 11/22/20 11/22/20 11/23/20 06:59 18:59 06:59 Intake Total 925 0 Balance 925 0 Weight 73.98 kg Intake: Intake, IV Titration 925 Amount Sodium Chloride 0.9% 1, 825 000 ml @ 75 mls/hr IV . [id number] LAZARA Rx#:[id number] metroNIDAZOLE-NS PMX 500 100 mg In Saline 1 100ml.bag @ 100 mls/hr IVPB ONCE STA Rx#:[id number] Oral 0 Other: Voiding Method Toilet # Voids 2 1 # Bowel Movements 2 3 - Labs CBC & Chem 7: 11/23/20 06:33 11/23/20 06:33 Labs: Abnormal Lab Results - Last 24 Hours (Table) 11/22/20 11/22/20 Range/Units 09:19 09:19 Plt Count 472 H (150-450) k/uL Neutrophils # 9.5 H (1.3-7.7) k/uL Lymphocytes # 0.6 L (1.0-4.8) k/uL BUN 23 H (7-17) mg/dL Glucose 101 H (74-99) mg/dL AST 108 H (14-36) U/L ALT 303 H (4-34) U/L Alkaline Phosphatase 142 H (38-126) U/L Total Protein 5.6 L (6.3-8.2) g/dL Albumin 3.2 L (3.5-5.0) g/dL
[2020-11-23] MEDS ORDERED: IV FLUID CONTINUATION 1,000 ML IV ONE (14:06)
[2020-11-23 14:18] LABS: Glucose,Whole Blood 51 mg/dL (75-99)
[2020-11-23] MEDS ORDERED: DEXTROSE 50% SYRINGE 50 ML IVP ONE (14:25)
[2020-11-23] MEDS ORDERED: MIDAZOLAM 2 MG/2 ML VIAL IVP ONE (14:36)
[2020-11-23] MEDS ORDERED: fentaNYL (PF) 50 MCG/ML 2 ML AMP IVP ONE (14:37)
[2020-11-23] MEDS: DEXTROSE 5%-LACTATED RINGERS 1,000 ML IV SCH ×2 (14:40→14:45)
[2020-11-23] MEDS ORDERED: HEPARIN SODIUM,PORCINE/PF 5,000 UNIT/0.5 ML SYRINGE SQ ONE (14:45)
[2020-11-23] MEDS ORDERED: HEPARIN SODIUM,PORCINE 5,000 UNIT/ML 1 ML VIAL SQ ONE (14:47)
[2020-11-23 14:52] LABS: Glucose,Whole Blood 116 mg/dL (75-99)
--- NOTE | 2020-11-23 15:20 | P.ANPRN ---
Procedure Note - Anesthesia - Nerve Block Performed Bilateral Erector Spinae Single Time Out Performed: Yes (1432) Date of Procedure: 11/23/20 Procedure Start Time: 14:33 Procedure Stop Time: 14:40 Location of Patient: PreOp Indication: Acute Post-Operative Pain, Requested by Surgeon Specifically requested for management of pain by DrMilton: Christian Schroeder Sedation Type: Sedate with meaningful contact maintained Preparation: Sterile Prep Position: Supine Catheter: None Needle Types: Pajunk Needle Gauge: 21 Ultrasound used to visualize needle placement: Yes Ultrasound used to observe medication spread: Yes Injectate: 0.5% Ropivacaine (see comment for volume) ((Ropi 0.5% 15cc + NACL 15CC PF) each side) Blood Aspirated: No Pain Paresthesia on Injection Noted: No Resistance on Injection: Normal Image Stored and Saved: Yes Events: Uneventful and Well Tolerated
[2020-11-23] MEDS ORDERED: MIDAZOLAM 2 MG/2 ML VIAL ONE (15:30)
[2020-11-23] MEDS ORDERED: fentaNYL (PF) 50 MCG/ML 2 ML AMP ONE (15:30)
[2020-11-23] MEDS ORDERED: ROCURONIUM 10 MG/ML (5 ML VIAL) IV ONE (15:30)
[2020-11-23] MEDS ORDERED: PHENYLEPHRINE-0.9% NACL SYG 1,000 MCG/10 ML SYRINGE ONE (15:30)
[2020-11-23] MEDS ORDERED: ROPIVACAINE 5 MG/ML 30 ML VIAL ONE (15:30)
[2020-11-23] MEDS ORDERED: ePHEDrine SULFATE/0.9% NACL/PF 50 MG/5 ML SYRINGE IV ONE (15:30)
[2020-11-23] MEDS ORDERED: SUCCINYLCHOLINE CHLORIDE 100 MG/5 ML SYR IV ONE (15:30)
[2020-11-23] MEDS ORDERED: PROPOFOL 10 MG/ML 20 ML VIAL IV ONE (15:30)
[2020-11-23] MEDS ORDERED: LIDOCAINE 1% INJ 10MG/ML (20 ML MDV) ONE (15:30)
[2020-11-23] MEDS ORDERED: SODIUM CHLORIDE 0.9% 100 ML with ceFAZolin 2,000 MG IV ONE ×2 (15:55)
--- NOTE | 2020-11-23 16:36 | P.OP ---
Date of Procedure: 11/23/20 Preoperative Diagnosis: Small bowel obstruction Postoperative Diagnosis: Small Bowel obstruction Procedure(s) Performed: Right colectomy Anesthesia: JAIME Surgeon: Christian Schroeder Estimated Blood Loss (ml): 25 Pathology: other (Terminal ileum and right colon) Condition: stable Disposition: PACU Description of Procedure: The patient's placed on the operative table in the supine position. She received general endotracheal tube anesthesia. Her abdomen was prepped and draped in sterile fashion. There was entered through a midline incision. And then the GelPort check his wound. The small bowel was run. In the distal terminal ileum there was thickening and inflammatory changes seen in the small bowel. There is trivial Mr. fat suggestive of Crohn's disease. At this point the small bowel was transected proximally and a normal-appearing area of ileum. And then the right colon was mobilized and divided with a Toldt's. And then the right colon was transected using the GI stapler. The mesentery the bowel was divided with the Enseal device. A [id number] functional end-to-end staple anastomosis created using the KO and TA stapler. A 3-0 GI silk sutures as a crotch stitch. The abdomen there is no bleeding seen. The remainder of the colon appeared normal. The small bowel was then run back to the level of the ligament Treitz and this was normal. Abdomen was irrigated once again. The fascia was then closed with looped #1 PDS suture. Skin was closed james. Patient top she will was sent to recovery room in stable condition.
[2020-11-23] MEDS ORDERED: HYDROmorphone 0.5 MG/0.5 ML SYRINGE IVP ONE (16:45)
[2020-11-23] MEDS: HYDROmorphone 0.5 MG/0.5 ML SYRINGE IVP ONE ×3 (16:56→17:30)
[2020-11-23] MEDS ORDERED: ONDANSETRON 4 MG/2 ML VIAL IVP ONE (17:00)
[2020-11-23 17:56] LABS: Glucose,Whole Blood 104 mg/dL (75-99)
[2020-11-23] MEDS: KETOROLAC 15 MG/ML 1 ML VIAL IVP PRN (18:55)
[2020-11-23] MEDS: D5-0.45% NACL WITH KCL 20MEQ/L 1,000 ML IV SCH (19:15)
[2020-11-23] MEDS: HYDROmorphone 1 MG/ML 1 ML SYRINGE IVP PRN (21:51)
[2020-11-23 22:02] LABS: Basophils % (A) 0 %; Eosinophils % (A) 0 %; HCT 36.8 % (34.0-46.0); HGB 11.9 gm/dL (11.4-16.0); Lymphocytes # (A) 0.4 k/uL (1.0-4.8); Lymphocytes % (A) 3 %; MCH 31.1 pg (25.0-35.0); MCHC 32.5 g/dL (31.0-37.0); MCV 95.8 fL (80.0-100.0); Mean Platelet Volume 6.9; Monocytes # (A) 0.3 k/uL (0-1.0); Monocytes % (A) 2 %; Neutrophils # (A) 13.1 k/uL (1.3-7.7); Neutrophils % (A) 95 %; Platelet Count 426 k/uL (150-450); RBC 3.84 m/uL (3.80-5.40); RDW 12.8 % (11.5-15.5); WBC 13.9 k/uL (3.8-10.6)
[2020-11-24] MEDS: SODIUM CHLORIDE 0.9% 1,000 ML IV SCH (00:16)
[2020-11-24] MEDS: DEXTROSE 5%-LACTATED RINGERS 1,000 ML IV SCH (00:16)
[2020-11-24] MEDS: KETOROLAC 15 MG/ML 1 ML VIAL IVP PRN (00:51)
[2020-11-24] MEDS: ONDANSETRON 4 MG/2 ML VIAL IVP PRN ×2 (00:57→07:40)
[2020-11-24] MEDS ORDERED: HYDROmorphone 1 MG/ML 1 ML SYRINGE ONE (04:22)
[2020-11-24] MEDS: D5-0.45% NACL WITH KCL 20MEQ/L 1,000 ML IV SCH ×3 (04:55→16:58)
[2020-11-24] MEDS: HYDROmorphone 1 MG/ML 1 ML SYRINGE IVP PRN ×5 (07:34→23:22)
[2020-11-24] MEDS: ALVIMOPAN 12 MG CAPSULE PO SCH ×2 (07:36→19:37)
[2020-11-24] MEDS: LOSARTAN 50 MG TAB PO SCH (07:36)
[2020-11-24] MEDS: FAMOTIDINE 20 MG/2 ML VIAL IV SCH (07:36)
[2020-11-24 08:19] LABS: Glucose,Whole Blood 107 mg/dL (75-99)
[2020-11-24 09:16] LABS: Basophils % (A) 0 %; Eosinophils % (A) 0 %; HCT 33.4 % (34.0-46.0); Lymphocytes # (A) 0.9 k/uL (1.0-4.8); Lymphocytes % (A) 8 %; MCH 31.3 pg (25.0-35.0); MCHC 32.9 g/dL (31.0-37.0); MCV 95.2 fL (80.0-100.0); Mean Platelet Volume 7.4; Monocytes # (A) 0.4 k/uL (0-1.0); Monocytes % (A) 4 %; Neutrophils % (A) 87 %; Platelet Count 449 k/uL (150-450); RDW 12.7 % (11.5-15.5); WBC 11.4 k/uL (3.8-10.6)
[2020-11-24 12:44] LABS: African American GFR (CKD) 117.7 (60.0-200.0); Anion Gap 6.6 mmol/L (4.00-12.00); Calcium 7.8 mg/dL (8.7-10.3); Carbon Dioxide 24.4 mmol/L (21.6-31.8); Non-African American GFR(CKD) 101.6 (60.0-200.0); Potassium 3.7 mmol/L (3.5-5.5)
--- NOTE | 2020-11-24 13:05 | P.PN ---
Subjective This is a 65-year-old patient of Dr. Agus Hernandez with a past medical history of basal cell carcinoma, hypertension, previous small bowel obstruction 4 last one in 2019. No surgical interventions were needed for any of the bowel obstructions. Patient presented to the emergency room yesterday after one day of sudden onset of vomiting with abdominal distention and abdominal pain. This is similar to her previous small bowel obstructions which prompted her to come to the emergency room. Patient states that the vomiting and nausea has improved. She is now having episodes of diarrhea. The CT did show wall thickening of the distal ileum involving a long segment highly 15 cm that could relate to inflammatory bowel disease. There is luminal narrowing. There is evidence of partial obstruction of the small bowel. This is similar to the pre vious exam. At this time patient is found resting in bed with complaints of diarrhea. Patient states that the nausea and vomiting has improved. Repeat labs show the VBC 10.5 which is down from 28.1 yesterday. Hemoglobin 12.9, potassium 4.3 which is down from 5.5, BUN 23 creatinine 0.69 AST improved at 108 compared to 589, ALT improved at 303 compared to 408, alkaline phosphatase improved from 162-142. COVID-19 was not detected. She remains afebrile, pulse rate 98, respirations 18, blood pressure 134/64, pulse ox 95% on room air. 11/23: Patient is feeling better no further nausea and vomiting she had bowel movement but continued having significant bloating sensation and discomfort, was seen general surgery and with intermittent small bowel obstruction related to terminal ileum inflammation patient will be going for exploratory she'll most likely have small section. 11/24: Patient underwent right colectomy yesterday by Dr. Schroeder. Patient is doing well postoperatively. She denies any nausea or vomiting, she has not passed gas yet. She is tolerating a clear liquid diet. Vital signs have been stable. Laboratory values showed WBC 11.4 hemoglobin 11, hematocrit 33.4 Objective - Vital Signs Vital signs: Vital Signs Temp 98.5 F 11/24/20 05:00 Pulse 79 11/24/20 08:00 Resp 20 11/24/20 08:00 BP 115/69 11/24/20 05:00 Pulse Ox 94 L 11/24/20 05:00 Intake & Output 11/23/20 11/24/20 11/24/20 18:59 06:59 18:59 Intake Total 1600 1615 Output Total 320 950 Balance 1280 665 Intake: IV 1600 Intake, IV Titration 1550 Amount D5-0.45% NaCl with KCl 1500 20Meq/l 1,000 ml @ 125 mls/hr IV .Q8H [facility] Rx#: [id number] ceFAZolin 2 gm In Sodium 50 Chloride 0.9% 50 ml @ 100 mls/hr IVPB ONCE ONE Rx# :[id number] Oral 65 Output: Urine 200 950 Uretheral (Su) 400 Estimated Blood Loss 120 Other: Voiding Method Toilet Indwelling Catheter Indwelling Catheter - Exam General Appearance: Alert, cooperative, no distress, appears stated age. Neck HEENT: Supple, no lymphadenopathy, no thyroid enlargement, no carotid bruits. Lungs: Clear to auscultation without crackles or wheezes no rhonchi, no deformity. Chest Wall: Chest wall normal expansion with deep inspiration no tenderness and no deformity was found on exam, no costochondral pain or discomfort. Heart: Regular rate and rhythm, S1, S2 normal, no murmur, rub or gallop. Back: Symmetric, no curvature, ROM normal, no CVA tenderness. Abdomen: Soft, tender, incision dressing is clean dry and intact Extremities: Extremities normal, atraumatic, no cyanosis or edema. Pulses: 2+ and symmetric. Skin: Skin color, texture, tugor normal, no rashes or lesions. Neurologic: Alert oriented x3 cranial nerves II through XII intact, no motor deficit, no abnormal balance or gait - Labs CBC & Chem 7: 11/24/20 06:41 11/24/20 06:41 Labs: Abnormal Lab Results - Last 24 Hours (Table) 11/23/20 11/23/20 11/23/20 Range/Units 06:33 14:17 14:50 WBC (3.8-10.6) k/uL Neutrophils # (1.3-7.7) k/uL Lymphocytes # (1.0-4.8) k/uL Creatinine 0.5 L (0.6-1.5) mg/dL BUN/Creatinine Ratio 28.00 H (12.00-20.00) Ratio Glucose 68 L (70-110) mg/dL POC Glucose (mg/dL) 51 L 116 H (75-99) mg/dL Calcium 8.5 L (8.7-10.3) mg/dL ALT 187 H (8-44) U/L Total Protein 5.0 L (6.2-8.2) g/dL Albumin 3.30 L (3.80-4.90) g/dL 11/23/20 11/23/20 11/24/20 Range/Units 17:53 21:34 07:32 WBC 13.9 H (3.8-10.6) k/uL Neutrophils # 13.1 H (1.3-7.7) k/uL Lymphocytes # 0.4 L (1.0-4.8) k/uL Creatinine (0.6-1.5) mg/dL BUN/Creatinine Ratio (12.00-20.00) Ratio Glucose (70-110) mg/dL POC Glucose (mg/dL) 104 H 107 H (75-99) mg/dL Calcium (8.7-10.3) mg/dL ALT (8-44) U/L Total Protein (6.2-8.2) g/dL Albumin (3.80-4.90) g/dL Assessment and Plan Plan: 1. Abdominal pain with colitis, small bowel obstruction. Nothing by mouth. Continue with hydration. Patient is status post right colectomy now toleating a clear liquid diet. 2. Colitis rule out ischemia versus infective. Zosyn and Flagyl started. Awaiting cultures. Repeat CBC. Continue current management patient is responding well to it so far. 3. Leukocytosis sepsis versus inflammatory. Continue IV antibiotics. Cultures negative and white blood cell is down 6000 only. 4. Nausea and Vomiting. Secondary to partial obstruction much better so far continue hydration and Zofran as needed. 5. Hypertension, continue Cozaar 50 mg by mouth daily 6. GI prophylaxis: Pepcid 20 mg 7. DVT prophylaxis pneumatic compression stockings CODE STATUS: Full code The above impression and plan of care have been discussed and directed by signing physician. Carli Brito nurse practitioner acting as scribe for signing physician.
--- NOTE | 2020-11-24 13:49 | P.PN ---
Subjective Progress Note Date: 11/24/20 CHIEF COMPLAINT: Abdominal pain HISTORY OF PRESENT ILLNESS: Patient is status post right colectomy for small bowel obstruction. She is postop day #1. She's currently on a clear liquid diet. She is reporting abdominal pain. She did receive a nerve block. She denies any bowel activity. Denies any nausea or vomiting. Afebrile WBC is down from 13.9-11.4 hemoglobin 11.0 Patient seen and examined with Dr. rdz PHYSICAL EXAM: VITAL SIGNS: Reviewed. GENERAL: Well-developed in no acute distress. HEENT: No sclera icterus. Extraocular movements grossly intact. Moist buccal mucosa. Head is atraumatic, normocephalic. ABDOMEN: Soft. Mildly distended. NEUROLOGIC: Alert and oriented. Cranial nerves II through XII grossly intact. ASSESSMENT: 1. Small bowel obstruction status post right colectomy PLAN: -Continue clear liquid diet -Continue IV fluids -Continue Toradol -Continue pain medication as needed -Encouraged patient to use incentive spirometer -Encouraged patient to increase activity Physician [employer] Sales Professional note has been reviewed by physician. Signing provider agrees with the documented findings, assessment, and plan of care. Objective - Vital Signs Vital signs: Vital Signs Temp 98.2 F 11/24/20 12:02 Pulse 78 11/24/20 12:02 Resp 16 11/24/20 12:02 BP 131/77 11/24/20 12:02 Pulse Ox 92 L 11/24/20 12:02 Intake & Output 11/23/20 11/24/20 11/24/20 18:59 06:59 18:59 Intake Total 1600 1615 Output Total 320 950 Balance 1280 665 Intake: IV 1600 Intake, IV Titration 1550 Amount D5-0.45% NaCl with KCl 1500 20Meq/l 1,000 ml @ 125 mls/hr IV .Q8H [facility] Rx#: [id number] ceFAZolin 2 gm In Sodium 50 Chloride 0.9% 50 ml @ 100 mls/hr IVPB ONCE ONE Rx# :[id number] Oral 65 Output: Urine 200 950 Uretheral (Su) 400 Estimated Blood Loss 120 Other: Voiding Method Toilet Indwelling Catheter Indwelling Catheter - Labs CBC & Chem 7: 11/24/20 06:41 11/24/20 06:41 Labs: Abnormal Lab Results - Last 24 Hours (Table) 11/23/20 11/23/20 11/23/20 Range/Units 14:17 14:50 17:53 WBC (3.8-10.6) k/uL RBC (3.80-5.40) m/uL Hgb (11.4-16.0) gm/dL Hct (34.0-46.0) % Neutrophils # (1.3-7.7) k/uL Lymphocytes # (1.0-4.8) k/uL BUN (9.0-27.0) mg/dL Creatinine (0.6-1.5) mg/dL POC Glucose (mg/dL) 51 L 116 H 104 H (75-99) mg/dL Calcium (8.7-10.3) mg/dL 11/23/20 11/24/20 11/24/20 Range/Units 21:34 06:41 06:41 WBC 13.9 H 11.4 H (3.8-10.6) k/uL RBC 3.50 L (3.80-5.40) m/uL Hgb 11.0 L (11.4-16.0) gm/dL Hct 33.4 L (34.0-46.0) % Neutrophils # 13.1 H 10.0 H (1.3-7.7) k/uL Lymphocytes # 0.4 L 0.9 L (1.0-4.8) k/uL BUN 6.0 L (9.0-27.0) mg/dL Creatinine 0.5 L (0.6-1.5) mg/dL POC Glucose (mg/dL) (75-99) mg/dL Calcium 7.8 L (8.7-10.3) mg/dL 11/24/20 Range/Units 07:32 WBC (3.8-10.6) k/uL RBC (3.80-5.40) m/uL Hgb (11.4-16.0) gm/dL Hct (34.0-46.0) % Neutrophils # (1.3-7.7) k/uL Lymphocytes # (1.0-4.8) k/uL BUN (9.0-27.0) mg/dL Creatinine (0.6-1.5) mg/dL POC Glucose (mg/dL) 107 H (75-99) mg/dL Calcium (8.7-10.3) mg/dL
[2020-11-24] MEDS: METOCLOPRAMIDE 5 MG/ML 2 ML VIAL IVP PRN ×2 (15:05→20:06)
[2020-11-24] MEDS: KETOROLAC 15 MG/ML 1 ML VIAL IVP SCH ×2 (16:56→23:22)
[2020-11-25] MEDS: HYDROmorphone 1 MG/ML 1 ML SYRINGE IVP PRN ×2 (05:17→08:22)
[2020-11-25] MEDS: D5-0.45% NACL WITH KCL 20MEQ/L 1,000 ML IV SCH ×3 (05:18→23:22)
[2020-11-25] MEDS: KETOROLAC 15 MG/ML 1 ML VIAL IVP SCH ×3 (05:46→18:06)
[2020-11-25 06:20] LABS: Basophils % (A) 0 %; Eosinophils % (A) 0 %; HCT 34.3 % (34.0-46.0); HGB 10.9 gm/dL (11.4-16.0); Lymphocytes # (A) 0.6 k/uL (1.0-4.8); Lymphocytes % (A) 5 %; MCH 29.7 pg (25.0-35.0); MCHC 31.8 g/dL (31.0-37.0); MCV 93.7 fL (80.0-100.0); Mean Platelet Volume 6.9; Monocytes # (A) 0.5 k/uL (0-1.0); Monocytes % (A) 3 %; Neutrophils # (A) 11.9 k/uL (1.3-7.7); Neutrophils % (A) 91 %; Platelet Count 423 k/uL (150-450); RBC 3.66 m/uL (3.80-5.40); RDW 12.6 % (11.5-15.5); WBC 13.1 k/uL (3.8-10.6)
[2020-11-25] MEDS: ALVIMOPAN 12 MG CAPSULE PO SCH ×2 (08:23→20:46)
[2020-11-25] MEDS: LOSARTAN 50 MG TAB PO SCH (08:23)
[2020-11-25] MEDS ORDERED: FAMOTIDINE 20 MG TAB PO SCH (09:00)
[2020-11-25] MEDS: ONDANSETRON 4 MG/2 ML VIAL IVP PRN ×2 (09:16→17:04)
--- NOTE | 2020-11-25 12:07 | P.PN ---
Subjective Progress Note Date: 11/25/20 CHIEF COMPLAINT: Abdominal pain HISTORY OF PRESENT ILLNESS: Patient is status post right colectomy for small bowel obstruction. She is postop day #2. She's currently on a clear liquid diet. She is reporting abdominal pain that is controlled with pain medication. She denies any bowel activity. She has been having nausea. Improved with Zofran. Afebrile WBC has increased from 11.4-13.1. Hemoglobin 10.9 platelets 423. Patient does have swelling at the right wrist at IV site. We'll have nursing staff change IV Patient seen and examined with Dr. rdz PHYSICAL EXAM: VITAL SIGNS: Reviewed. GENERAL: Well-developed in no acute distress. HEENT: No sclera icterus. Extraocular movements grossly intact. Moist buccal mucosa. Head is atraumatic, normocephalic. ABDOMEN: Soft. Mildly distended. Incision site clean dry and intact NEUROLOGIC: Alert and oriented. Cranial nerves II through XII grossly intact. ASSESSMENT: 1. Small bowel obstruction status post right colectomy 2. Leukocytosis PLAN: -Continue clear liquid diet -Continue IV fluids -Continue Toradol -Continue pain medication as needed -Encouraged patient to use incentive spirometer -Encouraged patient to ambulate Physician [employer] Cleaner And Repairer note has been reviewed by physician. Signing provider agrees with the documented findings, assessment, and plan of care. Objective - Vital Signs Vital signs: Vital Signs Temp 98.4 F 11/25/20 09:12 Pulse 98 11/25/20 09:12 Resp 18 11/25/20 09:21 BP 130/74 11/25/20 09:12 Pulse Ox 91 L 11/25/20 09:12 Intake & Output 11/24/20 11/25/20 11/25/20 18:59 06:59 18:59 Intake Total 1530 Output Total 1400 Balance -1400 1530 Intake: Intake, IV Titration 1200 Amount D5-0.45% NaCl with KCl 1200 20Meq/l 1,000 ml @ 125 mls/hr IV .Q8H [facility] Rx#: [id number] Oral 330 Output: Urine 1400 Other: Voiding Method Indwelling Catheter Indwelling Catheter - Labs CBC & Chem 7: 11/25/20 05:48 11/24/20 06:41 Labs: Abnormal Lab Results - Last 24 Hours (Table) 11/24/20 11/25/20 Range/Units 06:41 05:48 WBC 13.1 H (3.8-10.6) k/uL RBC 3.66 L (3.80-5.40) m/uL Hgb 10.9 L (11.4-16.0) gm/dL Neutrophils # 11.9 H (1.3-7.7) k/uL Lymphocytes # 0.6 L (1.0-4.8) k/uL BUN 6.0 L (9.0-27.0) mg/dL Creatinine 0.5 L (0.6-1.5) mg/dL Calcium 7.8 L (8.7-10.3) mg/dL
[2020-11-25] MEDS: METOCLOPRAMIDE 5 MG/ML 2 ML VIAL IVP PRN (13:09)
--- NOTE | 2020-11-25 14:58 | P.PN ---
Subjective Progress Note Date: 11/25/20 HISTORY OF PRESENT ILLNESS This is a 65-year-old patient of Dr. Agus Hernandez with a past medical history of basal cell carcinoma, hypertension, previous small bowel obstruction 4 last one in 2019. No surgical interventions were needed for any of the bowel obstructions. Patient presented to the emergency room yesterday after one day of sudden onset of vomiting with abdominal distention and abdominal pain. This is similar to her previous small bowel obstructions which prompted her to come to the emergency room. Patient states that the vomiting and nausea has improved. She is now having episodes of diarrhea. The CT did show wall thickening of the distal ileum involving a long segment highly 15 cm that could relate to inflammatory bowel disease. There is luminal narrowing. There is evidence of partial obstruction of the small bowel. This is similar to the previous exam. At this time patient is found resting in bed with complaints of diarrhea. Patient states that the nausea and vomiting has improved. Repeat labs show the VBC 10.5 which is down from 28.1 yesterday. Hemoglobin 12.9, potassium 4.3 which is down from 5.5, BUN 23 creatinine 0.69 AST improved at 108 compared to 589, ALT improved at 303 compared to 408, alkaline phosphatase improved from 162-142. COVID-19 was not detected. She remains afebrile, pulse rate 98, respirations 18, blood pressure 134/64, pulse ox 95% on room air. 11/23: Patient is feeling better no further nausea and vomiting she had bowel movement but continued having significant bloating sensation and discomfort, was seen general surgery and with intermittent small bowel obstruction related to terminal ileum inflammation patient will be going for exploratory she'll most likely have small section. 11/24: Patient underwent right colectomy yesterday by Dr. Schroeder. Patient is doing well postoperatively. She denies any nausea or vomiting, she has not passed gas yet. She is tolerating a clear liquid diet. Vital signs have been stable. Laboratory values showed WBC 11.4 hemoglobin 11, hematocrit 33.4 11/25: Patient is seen today in follow-up. She states she is passing some gas by mouth but no flatulence. Patient has been afebrile, heart rate 98, blood pressure 130/74, pulse ox 91-96% on room air. Repeat blood work reveals WBC 13.1, hemoglobin 10.9, platelet count 423. Pathology report is pending. REVIEW OF SYSTEMS Constitutional: No fever, no chills, no night sweats. No weight change. No weakness, fatigue or lethargy. No daytime sleepiness. EENT: No headache. No blurred vision or double vision, no loss of vision. No loss of Hearing, no ringing in the ears, no dizziness. No nasal drainage or congestion. No epistaxis. No sore throat. Lungs: No shortness of breath, cough, no sputum production. No wheezing. Cardiovascular: No chest pain, no lower extremity edema. No palpitations. No paroxysmal nocturnal dyspnea. No orthopnea. No lightheadedness or dizziness. No syncopal episodes. Abdominal: Reports abdominal pain. No nausea, vomiting. No diarrhea. Reports constipation. No bloody or tarry stools.. No loss of appetite. Genitourinary: No dysuria, increased frequency, urgency. No urinary retention. Musculoskeletal: No myalgias. No muscle weakness, no gait dysfunction, no frequent falls. No back pain. No neck pain. Integumentary: No wounds, no lesions. No rash or pruritus. No unusual bruising. No change in hair or nails. Neurologic: No aphasia. No facial droop. No change in mentation. No head injury. No headache. No paralysis. No paresthesia. Psychiatric: No depression. No anxiety. No mood swings. Endocrine: No abnormal blood sugars. No weight change. No excessive sweating or thirst. No cold intolerance. PHYSICAL EXAMINATION Gen: This is a 65-year-old female. Patient is ambulating around a ppears to be fairly comfortable. No acute distress noted. HEENT: Head is atraumatic, normocephalic. Pupils equal, round. Sclerae is anicteric. NECK: Supple. No JVD. No lymphadenopathy. No thyromegaly. LUNGS: Clear to auscultation. No wheezes or rhonchi. No intercostal retractions. HEART: Regular rate and rhythm. No murmur. ABDOMEN: Soft. Bowel sounds are present. No masses. Mild generalized tenderness. Dressing in place that is clean and dry. EXTREMITIES: No pedal edema. No calf tenderness. NEUROLOGICAL: Patient is awake, alert and oriented x3. Cranial nerves 2 through 12 are grossly intact. ASSESSMENT AND PLAN 1. Abdominal pain with colitis, small bowel obstruction. Nothing by mouth. Continue with hydration. Patient is status post right colectomy now toleating a clear liquid diet. 2. Colitis rule out ischemia versus infective. Zosyn and Flagyl started. Awaiting cultures. Repeat CBC. Continue current management patient is responding well to it so far. 3. Leukocytosis sepsis versus inflammatory. Continue IV antibiotics. Cultures negative and white blood cell is down 6000 only. 4. Nausea and Vomiting. Secondary to partial obstruction much better so far continue hydration and Zofran as needed. 5. Hypertension, continue Cozaar 50 mg by mouth daily 6. GI prophylaxis: Pepcid 20 mg 7. DVT prophylaxis pneumatic compression stockings 8. COVID-19 testing negative. Patient has been hospitalized during a pandemic. DISCHARGE PLAN Home. Impression and plan of care have been directed as dictated by the signing physician. Gabbie Castillo nurse practitioner acting as scribe for signing physician. Objective - Vital Signs Vital signs: Vital Signs Temp 98.4 F 11/25/20 09:12 Pulse 98 11/25/20 09:12 Resp 18 11/25/20 09:21 BP 130/74 11/25/20 09:12 Pulse Ox 91 L 11/25/20 09:12 Intake & Output 11/24/20 11/25/20 11/25/20 18:59 06:59 18:59 Intake Total 1530 Output Total 1400 Balance -1400 1530 Intake: Intake, IV Titration 1200 Amount D5-0.45% NaCl with KCl 1200 20Meq/l 1,000 ml @ 125 mls/hr IV .Q8H [facility] Rx#: [id number] Oral 330 Output: Urine 1400 Other: Voiding Method Indwelling Catheter Indwelling Catheter - Labs CBC & Chem 7: 11/25/20 05:48 11/24/20 06:41 Labs: Abnormal Lab Results - Last 24 Hours (Table) 11/24/20 11/25/20 Range/Units 06:41 05:48 WBC 13.1 H (3.8-10.6) k/uL RBC 3.66 L (3.80-5.40) m/uL Hgb 10.9 L (11.4-16.0) gm/dL Neutrophils # 11.9 H (1.3-7.7) k/uL Lymphocytes # 0.6 L (1.0-4.8) k/uL BUN 6.0 L (9.0-27.0) mg/dL Creatinine 0.5 L (0.6-1.5) mg/dL Calcium 7.8 L (8.7-10.3) mg/dL
[2020-11-25] MEDS: METOCLOPRAMIDE 5 MG/ML 2 ML VIAL IVP SCH (18:06)
[2020-11-25] MEDS ORDERED: SODIUM CHLORIDE 0.9% 2,000 ML IV ONE (18:29)
[2020-11-25] MEDS: BENZOCAINE/MENTHOL LOZENG 1 EACH LOZENGE MUCOUS MEM PRN ×2 (20:47→22:52)
[2020-11-26] MEDS: METOCLOPRAMIDE 5 MG/ML 2 ML VIAL IVP SCH ×5 (00:04→23:39)
[2020-11-26] MEDS ORDERED: SODIUM CHLORIDE 0.9% 2,000 ML IV ONE (03:11)
[2020-11-26] MEDS: BENZOCAINE/MENTHOL LOZENG 1 EACH LOZENGE MUCOUS MEM PRN ×6 (03:47→22:28)
[2020-11-26] MEDS: KETOROLAC 15 MG/ML 1 ML VIAL IVP SCH ×4 (05:55→18:09)
[2020-11-26] MEDS ORDERED: SODIUM CHLORIDE 0.9% 500 ML 500 ML IV ONE (07:18)
[2020-11-26] MEDS: D5-0.45% NACL WITH KCL 20MEQ/L 1,000 ML IV SCH ×3 (08:44→22:28)
[2020-11-26] MEDS: FAMOTIDINE 20 MG/2 ML VIAL IV SCH (08:44)
[2020-11-26] MEDS: ONDANSETRON 4 MG/2 ML VIAL IVP PRN ×2 (08:44→17:05)
[2020-11-26] MEDS: LOSARTAN 50 MG TAB PO SCH (08:58)
[2020-11-26 11:31] LABS: Basophils % (A) 0 %; Eosinophils # (A) 0.1 k/uL (0-0.7); Eosinophils % (A) 1 %; HCT 35.6 % (34.0-46.0); HGB 11.1 gm/dL (11.4-16.0); Lymphocytes # (A) 0.8 k/uL (1.0-4.8); Lymphocytes % (A) 7 %; MCH 29.9 pg (25.0-35.0); MCHC 31.1 g/dL (31.0-37.0); Monocytes # (A) 0.3 k/uL (0-1.0); Monocytes % (A) 3 %; Neutrophils # (A) 10.5 k/uL (1.3-7.7); Neutrophils % (A) 88 %; Platelet Count 444 k/uL (150-450); RBC 3.71 m/uL (3.80-5.40); RDW 13.1 % (11.5-15.5); WBC 11.9 k/uL (3.8-10.6)
[2020-11-26 11:58] LABS: ALT 53 U/L (4-34); AST 26 U/L (14-36); African American GFR (CKD) >90 (>60 ml/min/1.73 sqM); Albumin 2.6 g/dL (3.5-5.0); Alkaline Phosphatase 91 U/L (38-126); Anion Gap 5 mmol/L; Blood Urea Nitrogen 11 mg/dL (7-17); Calcium 7.8 mg/dL (8.4-10.2); Carbon Dioxide 28 mmol/L (22-30); Chloride 106 mmol/L (98-107); Glucose 107 mg/dL (74-99); Non-African American GFR(CKD) >90 (>60 ml/min/1.73 sqM); Potassium 3.3 mmol/L (3.5-5.1); Sodium 139 mmol/L (137-145); Total Bilirubin 0.5 mg/dL (0.2-1.3)
[2020-11-26 13:20] VITALS: BMI 25.5
[2020-11-26] MEDS ORDERED: Potassium Replacement Protocol 1 EACH MISC MISCELLANE PRN (14:19)
--- NOTE | 2020-11-26 14:21 | P.PN ---
Subjective Progress Note Date: 11/26/20 HISTORY OF PRESENT ILLNESS This is a 65-year-old patient of Dr. Agus Hernandez with a past medical history of basal cell carcinoma, hypertension, previous small bowel obstruction 4 last one in 2019. No surgical interventions were needed for any of the bowel obstructions. Patient presented to the emergency room yesterday after one day of sudden onset of vomiting with abdominal distention and abdominal pain. This is similar to her previous small bowel obstructions which prompted her to come to the emergency room. Patient states that the vomiting and nausea has improved. She is now having episodes of diarrhea. The CT did show wall thickening of the distal ileum involving a long segment highly 15 cm that could relate to inflammatory bowel disease. There is luminal narrowing. There is evidence of partial obstruction of the small bowel. This is similar to the previous exam. At this time patient is found resting in bed with complaints of diarrhea. Patient states that the nausea and vomiting has improved. Repeat labs show the VBC 10.5 which is down from 28.1 yesterday. Hemoglobin 12.9, potassium 4.3 which is down from 5.5, BUN 23 creatinine 0.69 AST improved at 108 compared to 589, ALT improved at 303 compared to 408, alkaline phosphatase improved from 162-142. COVID-19 was not detected. She remains afebrile, pulse rate 98, respirations 18, blood pressure 134/64, pulse ox 95% on room air. 11/23: Patient is feeling better no further nausea and vomiting she had bowel movement but continued having significant bloating sensation and discomfort, was seen general surgery and with intermittent small bowel obstruction related to terminal ileum inflammation patient will be going for exploratory she'll most likely have small section. 11/24: Patient underwent right colectomy yesterday by Dr. Schroeder. Patient is doing well postoperatively. She denies any nausea or vomiting, she has not passed gas yet. She is tolerating a clear liquid diet. Vital signs have been stable. Laboratory values showed WBC 11.4 hemoglobin 11, hematocrit 33.4 11/25: Patient is seen today in follow-up. She states she is passing some gas by mouth but no flatulence. Patient has been afebrile, heart rate 98, blood pressure 130/74, pulse ox 91-96% on room air. Repeat blood work reveals WBC 13.1, hemoglobin 10.9, platelet count 423. Pathology report is pending. 11/26: Patient states that she vomited last evening and NG tube was placed with significant output. She has some scaly passed gas and had 3 liquid-type bowel movements. She is currently nothing by mouth. Patient has been afebrile, heart rate 98, blood pressure 120/66, pulse ox 95% on room air. Repeat blood work reveals WBC 11.9, hemoglobin 11.1, platelet count 444. Sodium 139, potassium 3.3, chloride 106, CO2 28, BUN 11 creatinine 0.40. Potassium will be replaced by IV. REVIEW OF SYSTEMS Constitutional: No fever, no chills, no night sweats. No weight change. No weakness, fatigue or lethargy. No daytime sleepiness. EENT: No headache. No blurred vision or double vision, no loss of vision. No loss of Hearing, no ringing in the ears, no dizziness. No nasal drainage or congestion. No epistaxis. No sore throat. Lungs: No shortness of breath, cough, no sputum production. No wheezing. Cardiovascular: No chest pain, no lower extremity edema. No palpitations. No paroxysmal nocturnal dyspnea. No orthopnea. No lightheadedness or dizziness. No syncopal episodes. Abdominal: Reports abdominal pain. No nausea, vomiting. No diarrhea. Reports constipation. No bloody or tarry stools.. No loss of appetite. Genitourinary: No dysuria, increased frequency, urgency. No urinary retention. Musculoskeletal: No myalgias. No muscle weakness, no gait dysfunction, no frequent falls. No back pain. No neck pain. Integumentary: No wounds, no lesions. No rash or pruritus. No unusual bruising. No change in hair or nails. Neurologic: No aphasia. No facial droop. No change in mentation. No head injury. No headache. No paralysis. No paresthesia. Psychiatric: No depression. No anxiety. No mood swings. Endocrine: No abnormal blood sugars. No weight change. No excessive sweating or thirst. No cold intolerance. PHYSICAL EXAMINATION Gen: This is a 65-year-old female. Patient is ambulating around appears to be fairly comfortable. No acute distress noted. HEENT: Head is atraumatic, normocephalic. Pupils equal, round. Sclerae is anicteric. NECK: Supple. No JVD. No lymphadenopathy. No thyromegaly. LUNGS: Clear to auscultation. No wheezes or rhonchi. No intercostal retractions. HEART: Regular rate and rhythm. No murmur. ABDOMEN: Soft. Bowel sounds are present. No masses. Denies abdominal tenderness tenderness. Dressing in place that is clean and dry. EXTREMITIES: No pedal edema. No calf tenderness. NEUROLOGICAL: Patient is awake, alert and oriented x3. Cranial nerves 2 through 12 are grossly intact. ASSESSMENT AND PLAN 1. Abdominal pain with colitis, small bowel obstruction. Nothing by mouth. Continue with hydration. Patient is status post right colectomy. Patient has NG tube in place and nothing by mouth. 2. Colitis rule out ischemia versus infective. 3. Leukocytosis sepsis versus inflammatory. Cultures negative and white blood cell is down 6000 only. 4. Nausea and Vomiting. continue hydration and Zofran as needed. 5. Hypertension, continue Cozaar 50 mg by mouth daily 6. GI prophylaxis: Pepcid 20 mg 7. DVT prophylaxis pneumatic compression stockings 8. COVID-19 testing negative. Patient has been hospitalized during a pandemic. DISCHARGE PLAN Home. Impression and plan of care have been directed as dictated by the signing physician. Gabbie Castillo nurse practitioner acting as scribe for signing physician. Objective - Vital Signs Vital signs: Vital Signs Temp 98.8 F 11/26/20 01:54 Pulse 96 11/26/20 01:54 Resp 18 11/26/20 01:54 BP 112/69 11/26/20 01:54 Pulse Ox 94 L 11/26/20 01:54 Intake & Output 11/25/20 11/26/20 11/26/20 18:59 06:59 18:59 Output Total 1941 2355 Balance -1941 -2354 Output: Gastric Drainage 500 Drainage 1900 Right 1900 Urine 290 225 Stool 230 Emesis 1152 Other: Voiding Method Bedside Commode # Voids 1 1 # Bowel Movements 1 - Labs CBC & Chem 7: 11/26/20 11:07 11/26/20 11:07
[2020-11-26] MEDS: POTASSIUM CHLORIDE 10 MEQ in WATER FOR INJECTION 1 100ML.BAG IVPB SCH ×4 (14:53→18:09)
--- NOTE | 2020-11-26 15:50 | P.PN ---
Subjective Progress Note Date: 11/26/20 CHIEF COMPLAINT: Abdominal pain HISTORY OF PRESENT ILLNESS: Patient is status post right colectomy for small bowel obstruction. She is postop day #3. Last night patient had nausea and vomiting and required NG tube to be placed. She had 2500 mL out through the NG tube. She also had low urine output and received fluid boluses. Last night patient did start to have loose stools and did pass gas. Her nausea has improved. She has also had improvement in her abdominal discomfort. Afebrile. WBC 11.9 hemoglobin 11.1 platelets 444 potassium 3.3 Patient seen and examined with Dr. rdz PHYSICAL EXAM: VITAL SIGNS: Reviewed. GENERAL: Well-developed in no acute distress. HEENT: No sclera icterus. Extraocular movements grossly intact. Moist buccal mucosa. Head is atraumatic, normocephalic. ABDOMEN: Soft. Mildly distended. Incision site clean dry and intact there was some bloody drainage noted on dressing NEUROLOGIC: Alert and oriented. Cranial nerves II through XII grossly intact. ASSESSMENT: 1. Small bowel obstruction status post right colectomy 2. Leukocytosis PLAN: -Continue NG tube for decompression -Potassium being replaced -Continue IV fluids -Continue Toradol -Continue pain medication as needed -Encouraged patient to use incentive spirometer -Encouraged patient to ambulate Physician City Comptroller note has been reviewed by physician. Signing provider agrees with the documented findings, assessment, and plan of care. Objective - Vital Signs Vital signs: Vital Signs Temp 98.3 F 11/26/20 14:08 Pulse 91 11/26/20 14:08 Resp 16 11/26/20 14:08 BP 112/68 11/26/20 14:08 Pulse Ox 94 L 11/26/20 14:08 Intake & Output 11/25/20 11/26/20 11/26/20 18:59 06:59 18:59 Output Total 1942 5495 450 Balance -1942 -2355 -450 Weight 73.98 kg Output: Gastric Drainage 500 250 Drainage 1900 Right 1900 Urine 290 225 100 Stool 230 100 Emesis 1152 Other: Voiding Method Bedside Commode # Voids 1 1 1 # Bowel Movements 1 1 - Labs CBC & Chem 7: 11/26/20 11:07 11/26/20 11:07 Labs: Abnormal Lab Results - Last 24 Hours (Table) 11/26/20 11/26/20 Range/Units 11:07 11:07 WBC 11.9 H (3.8-10.6) k/uL RBC 3.71 L (3.80-5.40) m/uL Hgb 11.1 L (11.4-16.0) gm/dL Neutrophils # 10.5 H (1.3-7.7) k/uL Lymphocytes # 0.8 L (1.0-4.8) k/uL Potassium 3.3 L (3.5-5.1) mmol/L Creatinine 0.43 L (0.52-1.04) mg/dL Glucose 107 H (74-99) mg/dL Calcium 7.8 L (8.4-10.2) mg/dL ALT 53 H (4-34) U/L Total Protein 5.0 L (6.3-8.2) g/dL Albumin 2.6 L (3.5-5.0) g/dL
[2020-11-27] MEDS: D5-0.45% NACL WITH KCL 20MEQ/L 1,000 ML IV SCH ×3 (05:57→22:47)
[2020-11-27 06:19] LABS: Basophils % (A) 0 %; Eosinophils # (A) 0.2 k/uL (0-0.7); Eosinophils % (A) 2 %; HCT 30.8 % (34.0-46.0); HGB 10.1 gm/dL (11.4-16.0); Lymphocytes # (A) 0.8 k/uL (1.0-4.8); Lymphocytes % (A) 6 %; MCH 30.7 pg (25.0-35.0); MCHC 32.9 g/dL (31.0-37.0); MCV 93.4 fL (80.0-100.0); Mean Platelet Volume 7.1; Monocytes # (A) 0.5 k/uL (0-1.0); Monocytes % (A) 4 %; Neutrophils # (A) 11.6 k/uL (1.3-7.7); Neutrophils % (A) 88 %; Platelet Count 449 k/uL (150-450); RDW 12.6 % (11.5-15.5); WBC 13.2 k/uL (3.8-10.6)
[2020-11-27] MEDS: METOCLOPRAMIDE 5 MG/ML 2 ML VIAL IVP SCH ×2 (06:20→12:49)
[2020-11-27 06:32] LABS: African American GFR (CKD) >90 (>60 ml/min/1.73 sqM); Anion Gap 2 mmol/L; Blood Urea Nitrogen 8 mg/dL (7-17); Calcium 8.3 mg/dL (8.4-10.2); Carbon Dioxide 30 mmol/L (22-30); Chloride 103 mmol/L (98-107); Glucose 107 mg/dL (74-99); Non-African American GFR(CKD) >90 (>60 ml/min/1.73 sqM); Potassium 3.6 mmol/L (3.5-5.1); Sodium 135 mmol/L (137-145)
--- NOTE | 2020-11-27 09:51 | P.PN ---
Subjective Progress Note Date: 11/27/20 HISTORY OF PRESENT ILLNESS This is a 65-year-old patient of Dr. Agus Hernandez with a past medical history of basal cell carcinoma, hypertension, previous small bowel obstruction 4 last one in 2019. No surgical interventions were needed for any of the bowel obstructions. Patient presented to the emergency room yesterday after one day of sudden onset of vomiting with abdominal distention and abdominal pain. This is similar to her previous small bowel obstructions which prompted her to come to the emergency room. Patient states that the vomiting and nausea has improved. She is now having episodes of diarrhea. The CT did show wall thickening of the distal ileum involving a long segment highly 15 cm that could relate to inflammatory bowel disease. There is luminal narrowing. There is evidence of partial obstruction of the small bowel. This is similar to the previous exam. At this time patient is found resting in bed with complaints of diarrhea. Patient states that the nausea and vomiting has improved. Repeat labs show the VBC 10.5 which is down from 28.1 yesterday. Hemoglobin 12.9, potassium 4.3 which is down from 5.5, BUN 23 creatinine 0.69 AST improved at 108 compared to 589, ALT improved at 303 compared to 408, alkaline phosphatase improved from 162-142. COVID-19 was not detected. She remains afebrile, pulse rate 98, respirations 18, blood pressure 134/64, pulse ox 95% on room air. 11/23: Patient is feeling better no further nausea and vomiting she had bowel movement but continued having significant bloating sensation and discomfort, was seen general surgery and with intermittent small bowel obstruction related to terminal ileum inflammation patient will be going for exploratory she'll most likely have small section. 11/24: Patient underwent right colectomy yesterday by Dr. Schroeder. Patient is doing well postoperatively. She denies any nausea or vomiting, she has not passed gas yet. She is tolerating a clear liquid diet. Vital signs have been stable. Laboratory values showed WBC 11.4 hemoglobin 11, hematocrit 33.4 11/25: Patient is seen today in follow-up. She states she is passing some gas by mouth but no flatulence. Patient has been afebrile, heart rate 98, blood pressure 130/74, pulse ox 91-96% on room air. Repeat blood work reveals WBC 13.1, hemoglobin 10.9, platelet count 423. Pathology report is pending. 11/26: Patient states that she vomited last evening and NG tube was placed with significant output. She has some scaly passed gas and had 3 liquid-type bowel movements. She is currently nothing by mouth. Patient has been afebrile, heart rate 98, blood pressure 120/66, pulse ox 95% on room air. Repeat blood work reveals WBC 11.9, hemoglobin 11.1, platelet count 444. Sodium 139, potassium 3.3, chloride 106, CO2 28, BUN 11 creatinine 0.40. Potassium will be replaced by IV. 11/27: Patient remains nothing by mouth. Patient had a liquid brown stool this morning. NGT came out last night inadvertently. No vomiting. Abdominal wound has drainage. Patient has been afebrile, heart rate 68, blood pressure 118/79, pulse ox 99% on room air. Repeat blood work reveals WBC 13.2, hemoglobin 10.1, platelet count 449. Sodium 135, potassium 3.6, CO2 30, chloride 103, BUN 8, creatinine 0.44. Blood sugar 107. Patient is reaching 1000 on incentive spirometry. REVIEW OF SYSTEMS Constitutional: No fever, no chills, no night sweats. No weight change. No weakness, fatigue or lethargy. No daytime sleepiness. EENT: No headache. No blurred vision or double vision, no loss of vision. No loss of Hearing, no ringing in the ears, no dizziness. No nasal drainage or congestion. No epistaxis. No sore throat. Lungs: No shortness of breath, cough, no sputum production. No wheezing. Cardiovascular: No chest pain, no lower extremity edema. No palpitations. No paroxysmal nocturnal dyspnea. No orthopnea. No lightheadedness or dizziness. No syncopal episodes. Abdominal: Reports abdominal pain resolved. No nausea, vomiting. Reports diarrhea. Denies constipation. No bloody or tarry stools. No loss of appetite. Genitourinary: No dysuria, increased frequency, urgency. No urinary retention. Musculoskeletal: No myalgias. No muscle weakness, no gait dysfunction, no freq uent falls. No back pain. No neck pain. Integumentary: Reports drainage from wound, no lesions. No rash or pruritus. No unusual bruising. No change in hair or nails. Neurologic: No aphasia. No facial droop. No change in mentation. No head injury. No headache. No paralysis. No paresthesia. Psychiatric: No depression. No anxiety. No mood swings. Endocrine: No abnormal blood sugars. No weight change. No excessive sweating or thirst. No cold intolerance. PHYSICAL EXAMINATION Gen: This is a 65-year-old female. Patient is resting in bed and appears to be comfortable. No acute distress noted. HEENT: Head is atraumatic, normocephalic. Pupils equal, round. Sclerae is anicteric. NECK: Supple. No JVD. No lymphadenopathy. No thyromegaly. LUNGS: Clear to auscultation. No wheezes or rhonchi. No intercostal retractions. HEART: Regular rate and rhythm. No murmur. ABDOMEN: Soft. Bowel sounds are present. No masses. Denies abdominal tenderness tenderness. Dressing in place with abd binder. EXTREMITIES: No pedal edema. No calf tenderness. NEUROLOGICAL: Patient is awake, alert and oriented x3. Cranial nerves 2 through 12 are grossly intact. ASSESSMENT AND PLAN 1. Abdominal pain with colitis, small bowel obstruction. Nothing by mouth. Continue with hydration. Patient is status post right colectomy. NGT has been removed. 2. Colitis rule out ischemia versus infective. 3. Leukocytosis sepsis versus inflammatory. Cultures negative. 4. Nausea and Vomiting. continue hydration and Zofran as needed. 5. Hypertension, continue Cozaar 50 mg by mouth daily 6. GI prophylaxis: Pepcid 20 mg 7. DVT prophylaxis pneumatic compression stockings 8. COVID-19 testing negative. Patient has been hospitalized during a pandemic. DISCHARGE PLAN Home. Impression and plan of care have been directed as dictated by the signing physician. Gabbie Castillo nurse practitioner acting as scribe for signing physician. Objective - Vital Signs Vital signs: Vital Signs Temp 98.2 F 11/27/20 08:16 Pulse 101 H 11/27/20 08:16 Resp 16 11/27/20 08:16 BP 125/65 11/27/20 08:16 Pulse Ox 94 L 11/27/20 08:16 Intake & Output 11/26/20 11/27/20 11/27/20 18:59 06:59 18:59 Output Total 700 900 Balance -700 -900 Weight 73.98 kg Output: Gastric Drainage 450 100 Drainage 400 Right 400 Urine 150 400 Stool 100 Other: Voiding Method Toilet # Voids 50 1 # Bowel Movements 1 1 - Labs CBC & Chem 7: 11/27/20 05:54 11/27/20 05:54 Labs: Abnormal Lab Results - Last 24 Hours (Table) 11/26/20 11/26/20 11/27/20 Range/Units 11:07 11:07 05:54 WBC 11.9 H (3.8-10.6) k/uL RBC 3.71 L (3.80-5.40) m/uL Hgb 11.1 L (11.4-16.0) gm/dL Hct (34.0-46.0) % Neutrophils # 10.5 H (1.3-7.7) k/uL Lymphocytes # 0.8 L (1.0-4.8) k/uL Sodium 135 L (137-145) mmol/L Potassium 3.3 L (3.5-5.1) mmol/L Creatinine 0.43 L 0.44 L (0.52-1.04) mg/dL Glucose 107 H 107 H (74-99) mg/dL Calcium 7.8 L 8.3 L (8.4-10.2) mg/dL ALT 53 H (4-34) U/L Total Protein 5.0 L (6.3-8.2) g/dL Albumin 2.6 L (3.5-5.0) g/dL 11/27/20 Range/Units 05:54 WBC 13.2 H (3.8-10.6) k/uL RBC 3.30 L (3.80-5.40) m/uL Hgb 10.1 L (11.4-16.0) gm/dL Hct 30.8 L (34.0-46.0) % Neutrophils # 11.6 H (1.3-7.7) k/uL Lymphocytes # 0.8 L (1.0-4.8) k/uL Sodium (137-145) mmol/L Potassium (3.5-5.1) mmol/L Creatinine (0.52-1.04) mg/dL Glucose (74-99) mg/dL Calcium (8.4-10.2) mg/dL ALT (4-34) U/L Total Protein (6.3-8.2) g/dL Albumin (3.5-5.0) g/dL
[2020-11-27] MEDS: FAMOTIDINE 20 MG/2 ML VIAL IV SCH (09:54)
[2020-11-27] MEDS: LOSARTAN 50 MG TAB PO SCH (09:54)
[2020-11-27] MEDS: ACETAMINOPHEN TAB 325 MG TAB PO PRN ×2 (12:25→20:46)
[2020-11-27] MEDS: HEPARIN SODIUM,PORCINE/PF 5,000 UNIT/0.5 ML SYRINGE SQ SCH ×2 (13:55→20:46)
--- NOTE | 2020-11-27 14:47 | P.PN ---
Subjective Progress Note Date: 11/27/20 CHIEF COMPLAINT: Abdominal pain HISTORY OF PRESENT ILLNESS: Patient is status post right colectomy for small bowel obstruction. She is postop day #4. Monday night patient had severe nausea and vomiting and required NG tube to be placed. Patient accidentally pulled out her NG tube this morning. However, she is passing gas and did have a large loose bowel movement. NG tube will remain out. She denies any nausea or vomiting. Her abdominal pain is improving. She is urinating without difficulty . She is having some drainage from the top of her incision. Afebrile. WBC up from 11.9 to 13.2 hemoglobin 10.1. Potassium 3.6 Patient seen and examined with Dr. rdz PHYSICAL EXAM: VITAL SIGNS: Reviewed. GENERAL: Well-developed in no acute distress. HEENT: No sclera icterus. Extraocular movements grossly intact. Moist buccal mucosa. Head is atraumatic, normocephalic. ABDOMEN: Soft. Mildly distended. Patient does have pus drainage noted at the top of the incision NEUROLOGIC: Alert and oriented. Cranial nerves II through XII grossly intact. ASSESSMENT: 1. Small bowel obstruction status post right colectomy 2. Leukocytosis 3. Incisional infection with drainage PLAN: -Start patient on clear liquid diet -Add Zosyn -Due to loose stools -Continue IV fluids -Add Tylenol as needed for pain -Continue IV pain medication as needed -Encouraged patient to use incentive spirometer -Encouraged patient to ambulate -GI prophylaxis Pepcid and DVT prophylaxis subcu heparin Physician Moisture Conditioner Operator note has been reviewed by physician. Signing provider agrees with the documented findings, assessment, and plan of care. Objective - Vital Signs Vital signs: Vital Signs Temp 97.7 F 11/27/20 08:55 Pulse 68 11/27/20 08:55 Resp 16 11/27/20 08:55 BP 118/79 11/27/20 08:55 Pulse Ox 99 11/27/20 08:55 Intake & Output 11/26/20 11/27/20 11/27/20 18:59 06:59 18:59 Output Total 700 900 Balance -700 -900 Weight 73.98 kg 73.98 kg Output: Gastric Drainage 450 100 Drainage 400 Right 400 Urine 150 400 Stool 100 Other: Voiding Method Toilet # Voids 50 1 # Bowel Movements 1 1 - Labs CBC & Chem 7: 11/27/20 05:54 11/27/20 05:54 Labs: Abnormal Lab Results - Last 24 Hours (Table) 11/27/20 11/27/20 Range/Units 05:54 05:54 WBC 13.2 H (3.8-10.6) k/uL RBC 3.30 L (3.80-5.40) m/uL Hgb 10.1 L (11.4-16.0) gm/dL Hct 30.8 L (34.0-46.0) % Neutrophils # 11.6 H (1.3-7.7) k/uL Lymphocytes # 0.8 L (1.0-4.8) k/uL Sodium 135 L (137-145) mmol/L Creatinine 0.44 L (0.52-1.04) mg/dL Glucose 107 H (74-99) mg/dL Calcium 8.3 L (8.4-10.2) mg/dL
[2020-11-27] MEDS: PIPERACILLIN-TAZOBACTAM 3.375 GM in SODIUM CHLORIDE 0.9% 100 ML IVPB SCH ×2 (16:37→22:47)
[2020-11-28] MEDS: D5-0.45% NACL WITH KCL 20MEQ/L 1,000 ML IV SCH ×3 (05:38→20:25)
[2020-11-28] MEDS: FAMOTIDINE 20 MG/2 ML VIAL IV SCH (08:01)
[2020-11-28] MEDS: HEPARIN SODIUM,PORCINE/PF 5,000 UNIT/0.5 ML SYRINGE SQ SCH ×2 (08:01→20:21)
[2020-11-28] MEDS: LOSARTAN 50 MG TAB PO SCH (08:04)
[2020-11-28] MEDS: ACETAMINOPHEN TAB 325 MG TAB PO PRN ×2 (08:05→16:26)
[2020-11-28] MEDS: PIPERACILLIN-TAZOBACTAM 3.375 GM in SODIUM CHLORIDE 0.9% 100 ML IVPB SCH ×3 (08:09→23:09)
--- NOTE | 2020-11-28 12:32 | P.PN ---
Subjective Progress Note Date: 11/28/20 HISTORY OF PRESENT ILLNESS This is a 65-year-old patient of Dr. Agus Hernandez with a past medical history of basal cell carcinoma, hypertension, previous small bowel obstruction 4 last one in 2019. No surgical interventions were needed for any of the bowel obstructions. Patient presented to the emergency room yesterday after one day of sudden onset of vomiting with abdominal distention and abdominal pain. This is similar to her previous small bowel obstructions which prompted her to come to the emergency room. Patient states that the vomiting and nausea has improved. She is now having episodes of diarrhea. The CT did show wall thickening of the distal ileum involving a long segment highly 15 cm that could relate to inflammatory bowel disease. There is luminal narrowing. There is evidence of partial obstruction of the small bowel. This is similar to the previous exam. At this time patient is found resting in bed with complaints of diarrhea. Patient states that the nausea and vomiting has improved. Repeat labs show the VBC 10.5 which is down from 28.1 yesterday. Hemoglobin 12.9, potassium 4.3 which is down from 5.5, BUN 23 creatinine 0.69 AST improved at 108 compared to 589, ALT improved at 303 compared to 408, alkaline phosphatase improved from 162-142. COVID-19 was not detected. She remains afebrile, pulse rate 98, respirations 18, blood pressure 134/64, pulse ox 95% on room air. 11/23: Patient is feeling better no further nausea and vomiting she had bowel movement but continued having significant bloating sensation and discomfort, was seen general surgery and with intermittent small bowel obstruction related to terminal ileum inflammation patient will be going for exploratory she'll most likely have small section. 11/24: Patient underwent right colectomy yesterday by Dr. Schroeder. Patient is doing well postoperatively. She denies any nausea or vomiting, she has not passed gas yet. She is tolerating a clear liquid diet. Vital signs have been stable. Laboratory values showed WBC 11.4 hemoglobin 11, hematocrit 33.4 11/25: Patient is seen today in follow-up. She states she is passing some gas by mouth but no flatulence. Patient has been afebrile, heart rate 98, blood pressure 130/74, pulse ox 91-96% on room air. Repeat blood work reveals WBC 13.1, hemoglobin 10.9, platelet count 423. Pathology report is pending. 11/26: Patient states that she vomited last evening and NG tube was placed with significant output. She has some scaly passed gas and had 3 liquid-type bowel movements. She is currently nothing by mouth. Patient has been afebrile, heart rate 98, blood pressure 120/66, pulse ox 95% on room air. Repeat blood work reveals WBC 11.9, hemoglobin 11.1, platelet count 444. Sodium 139, potassium 3.3, chloride 106, CO2 28, BUN 11 creatinine 0.40. Potassium will be replaced by IV. 11/27: Patient remains nothing by mouth. Patient had a liquid brown stool this morning. NGT came out last night inadvertently. No vomiting. Abdominal wound has drainage. Patient has been afebrile, heart rate 68, blood pressure 118/79, pulse ox 99% on room air. Repeat blood work reveals WBC 13.2, hemoglobin 10.1, platelet count 449. Sodium 135, potassium 3.6, CO2 30, chloride 103, BUN 8, creatinine 0.44. Blood sugar 107. Patient is reaching 1000 on incentive spirometry. 11/28: Patient is moved to full liquid diet. Tolerating well. Her NG tube was removed last night. No vomiting. She is passing bowel and gas. Bowel sounds are hypoactive. There is noted drainage to the abdominal site and a culture will be taken and sent. The incision site is well approximated and intact. Serous drainage noted. Patient remains afebrile. Heart rate 85, respirations 20, blood pressure 144/71 pulse ox 96% on room air. REVIEW OF SYSTEMS Constitutional: No fever, no chills, no night sweats. No weight change. No weakness, fatigue or lethargy. No daytime sleepiness. EENT: No headache. No blurred vision or double vision, no loss of vision. No loss of Hearing, no ringing in the ears, no dizziness. No nasal drainage or congestion. No epistaxis. No sore throat. Lungs: No shortness of breath, cough, no sputum production. No wheezing. Cardiovascular: No chest pain, no lower extremity edema. No palpitations. No paroxysmal nocturnal dyspnea. No orthopnea. No lightheadedness or dizziness. No syncopal episodes. Abdominal: Reports abdominal pain resolved. No nausea, vomiting. Reports diarrhea. Denies constipation. No bloody or tarry stools. No loss of appetite. Genitourinary: No dysuria, increased frequency, urgency. No urinary retention. Musculoskeletal: No myalgias. No muscle weakness, no gait dysfunction, no frequent falls. No back pain. No neck pain. Integumentary: Reports drainage from wound, no lesions. No rash or pruritus. No unusual bruising. No change in hair or nails. Neurologic: No aphasia. No facial droop. No change in mentation. No head injury. No headache. No paralysis. No paresthesia. Psychiatric: No depression. No anxiety. No mood swings. Endocrine: No abnormal blood sugars. No weight change. No excessive sweating or thirst. No cold intolerance. PHYSICAL EXAMINATION Gen: This is a 65-year-old female. Patient is resting in bed and appears to be comfortable. No acute distress noted. HEENT: Head is atraumatic, normocephalic. Pupils equal, round. Sclerae is anicteric. NECK: Supple. No JVD. No lymphadenopathy. No thyromegaly. LUNGS: Clear to auscultation. No wheezes or rhonchi. No intercostal re tractions. HEART: Regular rate and rhythm. No murmur. ABDOMEN: Soft. Bowel sounds are present. No masses. Denies abdominal tenderness tenderness. Dressing in place with abd binder. EXTREMITIES: No pedal edema. No calf tenderness. NEUROLOGICAL: Patient is awake, alert and oriented x3. Cranial nerves 2 through 12 are grossly intact. ASSESSMENT AND PLAN 1. Abdominal pain with colitis, small bowel obstruction. Nothing by mouth. Continue with hydration. Patient is status post right colectomy. NGT has been removed. 2. Colitis rule out ischemia versus infective. 3. Leukocytosis sepsis versus inflammatory. Cultures negative. Wound culture obtained and sent. 4. Nausea and Vomiting. continue hydration and Zofran as needed. 5. Hypertension, continue Cozaar 50 mg by mouth daily 6. GI prophylaxis: Pepcid 20 mg 7. DVT prophylaxis pneumatic compression stockings 8. COVID-19 testing negative. Patient has been hospitalized during a pandemic. DISCHARGE PLAN Home. Impression and plan of care have been directed as dictated by the signing physician. Shannon Villarreal nurse practitioner acting as scribe for signing physician. Objective - Vital Signs Vital signs: Vital Signs Temp 98.7 F 11/28/20 08:02 Pulse 85 11/28/20 08:02 Resp 20 11/28/20 08:02 BP 144/71 11/28/20 08:02 Pulse Ox 96 11/28/20 08:02 Intake & Output 11/27/20 11/28/20 11/28/20 18:59 06:59 18:59 Weight 73.98 kg Other: Voiding Method Toilet Toilet # Bowel Movements 1 - Labs CBC & Chem 7: 11/27/20 05:54 11/27/20 05:54
--- NOTE | 2020-11-28 17:59 | P.PN ---
Subjective Progress Note Date: 11/28/20 CHIEF COMPLAINT: Bowel obstruction HISTORY OF PRESENT ILLNESS: The patient is a 65 year old male status post right colectomy for bowel obstruction. She is passing flatus and having bowel movements. She is tolerating clear liquid diet. REVIEW OF ORGAN SYSTEMS: No chest pain, no shortness of breath. No nausea or vomiting. PHYSICAL EXAM: VITALS: Reviewed CONSTITUTIONAL: Well developed and in no acute distress. EYES: Conjuctivae without sclera icterus. Extraocular movements grossly intact. HEAD, EARS, NOSE, THROAT: Moist buccal mucosa. Head is atraumatic, normocephalic. Hears conversational speech. RESPIRATORY: Non-labored respirations and equal bilateral excursions. No gross wheezes. CARDIOVASCULAR: Regular rate and rhythm. Palpable 2+ radial pulses. ABDOMEN: Non-tender. No peritonitis. NEUROLOGIC: Cranial nerves II through XII grossly intact. No focal or lateralizing signs. PSYCH: Alert to person, place and time. CLINCAL LABS: Reviewed. WBC 13.2 from yesterday. ASSESSMENT: 1. Small bowel obstruction s/p right colectomy PLAN: 1. Will advance diet to low fiber diet. Objective - Vital Signs Vital signs: Vital Signs Temp 98.3 F 11/28/20 14:20 Pulse 79 11/28/20 14:20 Resp 16 11/28/20 14:20 BP 129/78 11/28/20 14:20 Pulse Ox 95 11/28/20 14:20 Intake & Output 11/27/20 11/28/20 11/28/20 18:59 06:59 18:59 Weight 73.98 kg Other: Voiding Method Toilet Toilet # Bowel Movements 1 - Labs CBC & Chem 7: 11/27/20 05:54 11/27/20 05:54 Labs: Microbiology - Last 24 Hours (Table) 11/28/20 11:10 Wound Culture - Preliminary Abdomen
[2020-11-29] MEDS: D5-0.45% NACL WITH KCL 20MEQ/L 1,000 ML IV SCH (05:17)
[2020-11-29] MEDS: HEPARIN SODIUM,PORCINE/PF 5,000 UNIT/0.5 ML SYRINGE SQ SCH ×2 (08:33→20:51)
[2020-11-29] MEDS: LOSARTAN 50 MG TAB PO SCH (08:33)
[2020-11-29] MEDS: ACETAMINOPHEN TAB 325 MG TAB PO PRN ×2 (08:33→18:29)
[2020-11-29] MEDS: FAMOTIDINE 20 MG/2 ML VIAL IV SCH (08:33)
[2020-11-29] MEDS: PIPERACILLIN-TAZOBACTAM 3.375 GM in SODIUM CHLORIDE 0.9% 100 ML IVPB SCH ×2 (08:34→16:00)
[2020-11-29 08:37] VITALS: RESP 16
--- NOTE | 2020-11-29 10:43 | P.PN ---
Subjective Progress Note Date: 11/29/20 HISTORY OF PRESENT ILLNESS This is a 65-year-old patient of Dr. Agus Hernandez with a past medical history of basal cell carcinoma, hypertension, previous small bowel obstruction 4 last one in 2019. No surgical interventions were needed for any of the bowel obstructions. Patient presented to the emergency room yesterday after one day of sudden onset of vomiting with abdominal distention and abdominal pain. This is similar to her previous small bowel obstructions which prompted her to come to the emergency room. Patient states that the vomiting and nausea has improved. She is now having episodes of diarrhea. The CT did show wall thickening of the distal ileum involving a long segment highly 15 cm that could relate to inflammatory bowel disease. There is luminal narrowing. There is evidence of partial obstruction of the small bowel. This is similar to the previous exam. At this time patient is found resting in bed with complaints of diarrhea. Patient states that the nausea and vomiting has improved. Repeat labs show the VBC 10.5 which is down from 28.1 yesterday. Hemoglobin 12.9, potassium 4.3 which is down from 5.5, BUN 23 creatinine 0.69 AST improved at 108 compared to 589, ALT improved at 303 compared to 408, alkaline phosphatase improved from 162-142. COVID-19 was not detected. She remains afebrile, pulse rate 98, respirations 18, blood pressure 134/64, pulse ox 95% on room air. 11/23: Patient is feeling better no further nausea and vomiting she had bowel movement but continued having significant bloating sensation and discomfort, was seen general surgery and with intermittent small bowel obstruction related to terminal ileum inflammation patient will be going for exploratory she'll most likely have small section. 11/24: Patient underwent right colectomy yesterday by Dr. Schroeder. Patient is doing well postoperatively. She denies any nausea or vomiting, she has not passed gas yet. She is tolerating a clear liquid diet. Vital signs have been stable. Laboratory values showed WBC 11.4 hemoglobin 11, hematocrit 33.4 11/25: Patient is seen today in follow-up. She states she is passing some gas by mouth but no flatulence. Patient has been afebrile, heart rate 98, blood pressure 130/74, pulse ox 91-96% on room air. Repeat blood work reveals WBC 13.1, hemoglobin 10.9, platelet count 423. Pathology report is pending. 11/26: Patient states that she vomited last evening and NG tube was placed with significant output. She has some scaly passed gas and had 3 liquid-type bowel movements. She is currently nothing by mouth. Patient has been afebrile, heart rate 98, blood pressure 120/66, pulse ox 95% on room air. Repeat blood work reveals WBC 11.9, hemoglobin 11.1, platelet count 444. Sodium 139, potassium 3.3, chloride 106, CO2 28, BUN 11 creatinine 0.40. Potassium will be replaced by IV. 11/27: Patient remains nothing by mouth. Patient had a liquid brown stool this morning. NGT came out last night inadvertently. No vomiting. Abdominal wound has drainage. Patient has been afebrile, heart rate 68, blood pressure 118/79, pulse ox 99% on room air. Repeat blood work reveals WBC 13.2, hemoglobin 10.1, platelet count 449. Sodium 135, potassium 3.6, CO2 30, chloride 103, BUN 8, creatinine 0.44. Blood sugar 107. Patient is reaching 1000 on incentive spirometry. 11/28: Patient is moved to full liquid diet. Tolerating well. Her NG tube was removed last night. No vomiting. She is passing bowel and gas. Bowel sounds are hypoactive. There is noted drainage to the abdominal site and a culture will be taken and sent. The incision site is well approximated and intact. Serous drainage noted. Patient remains afebrile. Heart rate 85, respirations 20, blood pressure 144/71 pulse ox 96% on room air. 11/29: Patient is found sitting at the site of the bed without any complaints or concerns. She is tolerating a regular diet. No completes of nausea or vomiting. Continues to pass gas and bowel movement. Bowel sounds are present. Drainage still noted to the incision site awaiting culture. Patient remains afebrile, heart rate 83, respirations 16, blood pressure 125/72, pulse ox 95% on room air. REVIEW OF SYSTEMS Constitutional: No fever, no chills, no night sweats. No weight change. No weakness, fatigue or lethargy. No daytime sleepiness. EENT: No headache. No blurred vision or double vision, no loss of vision. No loss of Hearing, no ringing in the ears, no dizziness. No nasal drainage or congestion. No epistaxis. No sore throat. Lungs: No shortness of breath, cough, no sputum production. No wheezing. Cardiovascular: No chest pain, no lower extremity edema. No palpitations. No paroxysmal nocturnal dyspnea. No orthopnea. No lightheadedness or dizziness. No syncopal episodes. Abdominal: Reports abdominal pain resolved. No nausea, vomiting. Reports diarrhea. Denies constipation. No bloody or tarry stools. No loss of appetite. Genitourinary: No dysuria, increased frequency, urgency. No urinary retention. Musculoskeletal: No myalgias. No muscle weakness, no gait dysfunction, no frequent falls. No back pain. No neck pain. Integumentary: Reports drainage from wound, no lesions. No rash or pruritus. No unusual bruising. No change in hair or nails. Neurologic: No aphasia. No facial droop. No change in mentation. No head injury. No headache. No paralysis. No paresthesia. Psychiatric: No depression. No anxiety. No mood swings. Endocrine: No abnormal blood sugars. No weight change. No excessive sweating or thirst. No cold intolerance. PHYSICAL EXAMINATION Gen: This is a 65-year-old female. Patient is resting in bed and appears to be comfortable. No acute distress noted. HEENT: Head is atraumatic, normocephalic. Pupils equal, round. Sclerae is anicteric. NECK: Supple. No JVD. No lymphadenopathy. No thyromegaly. LUNGS: Clear to auscultation. No wheezes or rhonchi. No intercostal r etractions. HEART: Regular rate and rhythm. No murmur. ABDOMEN: Soft. Bowel sounds are present. No masses. Denies abdominal tenderness tenderness. Dressing in place with abd binder. EXTREMITIES: No pedal edema. No calf tenderness. NEUROLOGICAL: Patient is awake, alert and oriented x3. Cranial nerves 2 through 12 are grossly intact. ASSESSMENT AND PLAN 1. Abdominal pain with colitis, small bowel obstruction. Nothing by mouth. IV discontinued. Patient is status post right colectomy. 2. Colitis rule out ischemia versus infective. 3. Leukocytosis sepsis versus inflammatory. Cultures negative. Incision culture obtained and sent. Awaiting results from incision culture. 4. Nausea and Vomiting. continue hydration and Zofran as needed. 5. Hypertension, continue Cozaar 50 mg by mouth daily 6. GI prophylaxis: Pepcid 20 mg 7. DVT prophylaxis pneumatic compression stockings 8. COVID-19 testing negative. Patient has been hospitalized during a pandemic. DISCHARGE PLAN Home. Impression and plan of care have been directed as dictated by the signing physician. Shannon Villarreal nurse practitioner acting as scribe for signing physician. Objective - Vital Signs Vital signs: Vital Signs Temp 98.8 F 11/29/20 08:25 Pulse 83 11/29/20 08:25 Resp 16 11/29/20 08:25 BP 125/72 11/29/20 08:25 Pulse Ox 95 11/29/20 08:25 Intake & Output 11/28/20 11/29/20 11/29/20 18:59 06:59 18:59 Intake Total 240 Balance 240 Intake: Oral 240 Other: Voiding Method Toilet Toilet # Voids 1 - Labs CBC & Chem 7: 11/27/20 05:54 11/27/20 05:54 Labs: Microbiology - Last 24 Hours (Table) 11/28/20 11:10 Gram Stain - Preliminary Abdomen Wound Culture - Preliminary Gram Neg Bacilli Gram Neg Bacilli#2
--- NOTE | 2020-11-29 16:49 | P.PN ---
Subjective Progress Note Date: 11/29/20 CHIEF COMPLAINT: Bowel obstruction HISTORY OF PRESENT ILLNESS: The patient is a 65 year old male status post right colectomy for bowel obstruction. She is passing flatus and having bowel movements. She is tolerating a low fiber diet. She is having bowel movements. No reports of abdominal pain following her advancement of diet. REVIEW OF ORGAN SYSTEMS: No chest pain, no shortness of breath. No nausea or vomiting. PHYSICAL EXAM: VITALS: Reviewed CONSTITUTIONAL: Well developed and in no acute distress. EYES: Conjuctivae without sclera icterus. Extraocular movements grossly intact. HEAD, EARS, NOSE, THROAT: Moist buccal mucosa. Head is atraumatic, normocephalic. Hears conversational speech. RESPIRATORY: Non-labored respirations and equal bilateral excursions. No gross wheezes. CARDIOVASCULAR: Regular rate and rhythm. Palpable 2+ radial pulses. ABDOMEN: Non-tender. No peritonitis. NEUROLOGIC: Cranial nerves II through XII grossly intact. No focal or lateralizing signs. PSYCH: Alert to person, place and time. CLINCAL LABS: No new labs. ASSESSMENT: 1. Small bowel obstruction s/p right colectomy PLAN: 1. Patient is tolerating diet. Continue low fiber diet. Objective - Vital Signs Vital signs: Vital Signs Temp 97.8 F 11/29/20 14:10 Pulse 70 11/29/20 14:10 Resp 16 11/29/20 14:10 BP 116/68 11/29/20 14:10 Pulse Ox 95 11/29/20 14:10 Intake & Output 11/28/20 11/29/20 11/29/20 18:59 06:59 18:59 Intake Total 240 Balance 240 Intake: Oral 240 Other: Voiding Method Toilet Toilet # Voids 1 - Labs CBC & Chem 7: 11/27/20 05:54 11/27/20 05:54 Labs: Microbiology - Last 24 Hours (Table) 11/28/20 11:10 Gram Stain - Preliminary Abdomen Wound Culture - Preliminary Gram Neg Bacilli Gram Neg Bacilli#2
[2020-11-30] MEDS: PIPERACILLIN-TAZOBACTAM 3.375 GM in SODIUM CHLORIDE 0.9% 100 ML IVPB SCH ×2 (00:15→08:30)
[2020-11-30 06:42] LABS: Basophils % (A) 0 %; Eosinophils # (A) 0.3 k/uL (0-0.7); Eosinophils % (A) 3 %; HCT 32.4 % (34.0-46.0); HGB 10.7 gm/dL (11.4-16.0); Lymphocytes % (A) 14 %; MCH 31.2 pg (25.0-35.0); MCHC 33.2 g/dL (31.0-37.0); MCV 93.8 fL (80.0-100.0); Mean Platelet Volume 6.8; Monocytes # (A) 0.3 k/uL (0-1.0); Monocytes % (A) 4 %; Neutrophils # (A) 5.9 k/uL (1.3-7.7); Neutrophils % (A) 78 %; Platelet Count 578 k/uL (150-450); RBC 3.45 m/uL (3.80-5.40); RDW 12.5 % (11.5-15.5); WBC 7.6 k/uL (3.8-10.6)
[2020-11-30 06:58] LABS: ALT 24 U/L (4-34); AST 16 U/L (14-36); African American GFR (CKD) >90 (>60 ml/min/1.73 sqM); Albumin 2.7 g/dL (3.5-5.0); Alkaline Phosphatase 114 U/L (38-126); Anion Gap 6 mmol/L; Blood Urea Nitrogen 5 mg/dL (7-17); Calcium 8.5 mg/dL (8.4-10.2); Carbon Dioxide 33 mmol/L (22-30); Chloride 101 mmol/L (98-107); Glucose 82 mg/dL (74-99); Non-African American GFR(CKD) >90 (>60 ml/min/1.73 sqM); Potassium 2.9 mmol/L (3.5-5.1); Sodium 140 mmol/L (137-145); Total Bilirubin 0.3 mg/dL (0.2-1.3); Total Protein 5.2 g/dL (6.3-8.2)
[2020-11-30] MEDS ORDERED: Potassium Replacement Protocol 1 EACH MISC MISCELLANE PRN (07:44)
[2020-11-30] MEDS ORDERED: POTASSIUM CHLORIDE ER 20 MEQ TAB.ER PO STA ×2 (08:26→09:00)
[2020-11-30] MEDS: POTASSIUM CHLORIDE ER 20 MEQ TAB.ER PO SCH ×3 (08:30→10:50)
[2020-11-30] MEDS: FAMOTIDINE 20 MG/2 ML VIAL IV SCH (08:30)
[2020-11-30] MEDS: HEPARIN SODIUM,PORCINE/PF 5,000 UNIT/0.5 ML SYRINGE SQ SCH (08:31)
[2020-11-30] MEDS: LOSARTAN 50 MG TAB PO SCH (08:31)
--- NOTE | 2020-11-30 09:00 | P.DS ---
Providers Date of admission: 11/21/20 22:46 Expected date of discharge: 11/30/20 Attending physician: Aditya Joel Consults: 11/21/20 22:30 Consult Physician Stat Consulting Provider: Christian Schroeder Consult Reason/Comments: partial small bowel obstruction Do you want consulting provider notified?: Yes Primary care physician: [facility] Course: HISTORY OF PRESENT ILLNESS This is a 65-year-old patient of Dr. Agus Hernandez with a past medical history of basal cell carcinoma, hypertension, previous small bowel obstruction 4 last one in 2019. No surgical interventions were needed for any of the bowel obstructions. Patient presented to the emergency room yesterday after one day of sudden onset of vomiting with abdominal distention and abdominal pain. This is similar to her previous small bowel obstructions which prompted her to come to the emergency room. Patient states that the vomiting and nausea has improved. She is now having episodes of diarrhea. The CT did show wall thickening of the distal ileum involving a long segment highly 15 cm that could relate to inflammatory bowel disease. There is luminal narrowing. There is evidence of partial obstruction of the small bowel. This is similar to the previous exam. At this time patient is found resting in bed with complaints of diarrhea. Patient states that the nausea and vomiting has improved. Repeat labs show the VBC 10.5 which is down from 28.1 yesterday. Hemoglobin 12.9, potassium 4.3 which is down from 5.5, BUN 23 creatinine 0.69 AST improved at 108 compared to 589, ALT improved at 303 compared to 408, alkaline phosphatase improved from 162-142. COVID-19 was not detected. She remains afebrile, pulse rate 98, respirations 18, blood pressure 134/64, pulse ox 95% on room air. 11/23: Patient is feeling better no further nausea and vomiting she had bowel movement but continued having significant bloating sensation and discomfort, was seen general surgery and with intermittent small bowel obstruction related to terminal ileum inflammation patient will be going for exploratory she'll most likely have small section. 11/24: Patient underwent right colectomy yesterday by Dr. Schroeder. Patient is doing well postoperatively. She denies any nausea or vomiting, she has not passed gas yet. She is tolerating a clear liquid diet. Vital signs have been s table. Laboratory values showed WBC 11.4 hemoglobin 11, hematocrit 33.4 4/28: Patient is seen today in follow-up. She states she is passing some gas by mouth but no flatulence. Patient has been afebrile, heart rate 98, blood pressure 130/74, pulse ox 91-96% on room air. Repeat blood work reveals WBC 13.1, hemoglobin 10.9, platelet count 423. Pathology report is pending. 11/26: Patient states that she vomited last evening and NG tube was placed with significant output. She has some scaly passed gas and had 3 liquid-type bowel movements. She is currently nothing by mouth. Patient has been afebrile, heart rate 98, blood pressure 120/66, pulse ox 95% on room air. Repeat blood work reveals WBC 11.9, hemoglobin 11.1, platelet count 444. Sodium 139, potassium 3.3, chloride 106, CO2 28, BUN 11 creatinine 0.40. Potassium will be replaced by IV. 11/27: Patient remains nothing by mouth. Patient had a liquid brown stool this morning. NGT came out last night inadvertently. No vomiting. Abdominal wound has drainage. Patient has been afebrile, heart rate 68, blood pressure 118/79, pulse ox 99% on room air. Repeat blood work reveals WBC 13.2, hemoglobin 10.1, platelet count 449. Sodium 135, potassium 3.6, CO2 30, chloride 103, BUN 8, creatinine 0.44. Blood sugar 107. Patient is reaching 1000 on incentive spirometry. 11/28: Patient is moved to full liquid diet. Tolerating well. Her NG tube was removed last night. No vomiting. She is passing bowel and gas. Bowel sounds are hypoactive. There is noted drainage to the abdominal site and a culture will be taken and sent. The incision site is well approximated and intact. Serous drainage noted. Patient remains afebrile. Heart rate 85, respirations 20, blood pressure 144/71 pulse ox 96% on room air. 11/29: Patient is found sitting at the site of the bed without any complaints or concerns. She is tolerating a regular diet. No completes of nausea or vomiting. Continues to pass gas and bowel movement. Bowel sounds are present. Drainage still noted to the incision site awaiting culture. Patient remains afebrile, heart rate 83, respirations 16, blood pressure 125/72, pulse ox 95% on room air. 11/30: She has been afebrile, heart rate 75, blood pressure 129/74, pulse ox 94% on room air. Blood work this morning reveals WBC 7.6, hemoglobin 10.7, platelet count 578. Sodium 140, potassium 2.9 chloride 101, CO2 33, BUN 5 and creatinine 0.56. Liver function tests are normal. Potassium will be replaced. Wound culture is showing Morganella morganii and E. coli both susceptible to ciprofloxacin. Patient states that she is passing gas and has had a bowel movement. She states Tylenol is all she is taking for pain. Patient will be prepared for discharge for today as long as general surgery is in agreement. ASSESSMENT AND PLAN 1. Abdominal pain secondary to small bowel obstruction status post right colectomy. 2. Colitis ruled out. 3. Sepsis with leukocytosis and tachycardia. 4. Nausea and Vomiting. 5. Hypertension 6. Incisional infection with drainage 7. COVID-19 testing negative. Patient has been hospitalized during a pandemic. DISCHARGE PLAN Home. Impression and plan of care have been directed as dictated by the signing physician. Gabbie Castillo nurse practitioner acting as scribe for signing physician. Patient Condition at Discharge: Good Plan - Discharge Summary Discharge Rx Participant: No New Discharge Prescriptions: New Acetaminophen Tab [Tylenol] 650 mg PO Q4H PRN tab PRN Reason: Fever And/ Or Pain Ciprofloxacin HCl [Cipro] 500 mg PO BID 7 Days #14 tab Continue Losartan [Cozaar] 50 mg PO DAILY Discharge Medication List Losartan [Cozaar] 50 mg PO DAILY 11/21/20 [History] Acetaminophen Tab [Tylenol] 650 mg PO Q4H PRN tab 11/28/20 [Rx] Ciprofloxacin HCl [Cipro] 500 mg PO BID 7 Days #14 tab 11/30/20 [Rx] Follow up Appointment(s)/Referral(s): Mak Hernandez MD [Primary Care Provider] - 1-2 days Ambulatory/Diagnostic Orders: Basic Metabolic Panel [LAB.AMB] Location: None Selected Complete Blood Count w/diff [LAB.AMB] Location: None Selected Discharge Disposition: HOME SELF-CARE
--- NOTE | 2020-11-30 14:02 | P.PN ---
Subjective Progress Note Date: 11/30/20 CHIEF COMPLAINT: Abdominal pain HISTORY OF PRESENT ILLNESS: Patient is status post right colectomy for small bowel obstruction. Patient reports that her pain is controlled. She is tolerating diet. She is having bowel movements. She denies any nausea or vomiting. Her white count has normalized. Potassium is low at 2.9 and being replaced. Her culture from the incisional drainage is showing gram-negative bacilli. Patient seen and examined with Dr. rdz PHYSICAL EXAM: VITAL SIGNS: Reviewed. GENERAL: Well-developed in no acute distress. HEENT: No sclera icterus. Extraocular movements grossly intact. Moist buccal mucosa. Head is atraumatic, normocephalic. ABDOMEN: Soft. Nondistended. Patient having drainage from the open area at the top of her incision. NEUROLOGIC: Alert and oriented. Cranial nerves II through XII grossly intact. ASSESSMENT: 1. Small bowel obstruction status post right colectomy 2. Leukocytosis 3. Incisional infection with drainage PLAN: -Patient can be discharge from surgical standpoint for discharge -Continue with antibiotics as per medicine recommendations Physician Jigsawyer note has been reviewed by physician. Signing provider agrees with the documented findings, assessment, and plan of care. Objective - Vital Signs Vital signs: Vital Signs Temp 98.6 F 11/30/20 08:15 Pulse 75 11/30/20 08:15 Resp 16 11/30/20 08:15 BP 129/68 11/30/20 08:15 Pulse Ox 97 11/30/20 08:15 Intake & Output 11/29/20 11/30/20 11/30/20 18:59 06:59 18:59 Intake Total 1340 Output Total 200 Balance 1340 -200 Weight 73.98 kg Intake: Intake, IV Titration 100 Amount Piperacillin-Tazobactam 3 100 .375 gm In Sodium Chloride 0.9% 100 ml @ 25 mls/hr IVPB Q8HR [facility] Rx# :[id number] Oral 1240 Output: Urine 200 Other: Voiding Method Toilet # Voids 4 1 1 # Bowel Movements 3 1 - Labs CBC & Chem 7: 11/30/20 06:23 11/30/20 06:23 Labs: Abnormal Lab Results - Last 24 Hours (Table) 11/30/20 11/30/20 Range/Units 06:23 06:23 RBC 3.45 L (3.80-5.40) m/uL Hgb 10.7 L (11.4-16.0) gm/dL Hct 32.4 L (34.0-46.0) % Plt Count 578 H (150-450) k/uL Potassium 2.9 L (3.5-5.1) mmol/L Carbon Dioxide 33 H (22-30) mmol/L BUN 5 L (7-17) mg/dL Total Protein 5.2 L (6.3-8.2) g/dL Albumin 2.7 L (3.5-5.0) g/dL Microbiology - Last 24 Hours (Table) 11/28/20 11:10 Gram Stain - Final Abdomen Wound Culture - Final Morganella morganii Escherichia coli
[2020-11-30 14:19] VITALS: BP 115/59; PULSE 80; TEMP 98.1
--- NOTE | 2020-12-16 05:56 | CDI ---
Documentation Clarification Form Date: 12/16/2020 05:26:00 AM From: Belle Paez Phone: If you have a question about this query, please contact Manasa Vu Fiscal Specialist at [phone] between 8am and 5pm. Admit Date: 11/21/2020 10:46:00 PM Patient Name: Yvrose Norman Visit Number: [id number] Discharge Date: 11/30/2020 03:36:00 PM ATTENTION: The Clinical Documentation Specialists (CDI) and [facility] Coding Staff appreciate your assistance in clarifying documentation. Please respond to the clarification below the line at the bottom and electronically sign. The CDI & [facility] Coding staff will review the response and follow-up if needed. Please note: Queries are made part of the Legal Health Record. If you have any questions, please contact the author of this message via ITS. Dr. Aditya Joel There is documentation in the path report Appendix with fibrous obliteration subserosal abscess, suggestive of perforated viscus. Did patient have a ruptured appendix? Please clarify History/Risk Factors: SBO, sepsis Clinical Indicators: WBC 28K, left shift neutrophils 26.90K Treatment: Right hemicolectomy, appendectomy, excision of SB. Can you please clarify if patient had a perforated appendix. [ ] perforated appendix [ ] not perforated appendix [ xx ] Other, please specify _Ask the Surgeon for Clarification?? [ ] Unable to determine MTDD
--- NOTE | 2020-12-22 11:07 | CDI ---
Documentation Clarification Form Date: 12/22/2020 10:43:00 AM From: Belle Paez Admit Date: 11/21/2020 10:46:00 PM Patient Name: Yvrose Norman Visit Number: [id number] Discharge Date: 11/30/2020 03:36:00 PM ATTENTION: The Clinical Documentation Specialists (CDI) and [facility] Coding Staff appreciate your assistance in clarifying documentation. Please respond to the clarification below the line at the bottom and electronically sign. The CDI & [facility] Coding staff will review the response and follow-up if needed. Please note: Queries are made part of the Legal Health Record. If you have any questions, please contact the author of this message via ITS. Dr. Christian Schroeder There is documentation in path report Appendix with fibrous obliteration, subserosal abscess suggestive of perforated viscus. Additional clarification is requested. Did patient have a ruptured appendix? History/Risk Factors: SBO sepsis Clinical Indicators: WBC 28 K left shift Treatment: Right hemicolectomy, appendectomy, exicison of SB Can you please clarify by indicating one of the following: [ ] ruptured appendix [ x] appendix not ruptured [ ] Other, please specify [ ] Unable to determine MTDD
--- NOTE | 2020-12-23 10:31 | CDI ---
Documentation Clarification Form Date: 12/22/2020 10:43:00 AM From: Belle Paez Phone: If you have a question about this query, please contact Manasa Vu [employer] Blank[employer] Machine Feeder at [phone] between 8am and 5pm Admit Date: 11/21/2020 10:46:00 PM Patient Name: Yvrose Norman Visit Number: [id number] Discharge Date: 11/30/2020 03:36:00 PM ATTENTION: The Clinical Documentation Specialists (CDI) and [facility] Coding Staff appreciate your assistance in clarifying documentation. Please respond to the clarification below the line at the bottom and electronically sign. The CDI & [facility] Coding staff will review the response and follow-up if needed. Please note: Queries are made part of the Legal Health Record. If you have any questions, please contact the author of this message via ITS. Dr. Christian Schroeder There is documentation in path report Appendix with fibrous obliteration, subserosal abscess suggestive of perforated viscus. Did patient have a ruptured appendix? Additional clarification is requested. History/Risk Factors: SBO sepsis Clinical Indicators: WBC 28 K left shift Treatment: Right hemicolectomy, appendectomy, exicison of SB Can you please clarify [fill in the question]? [ ] ruptured appendix [ x] appendix not ruptured [ ] Other, please specify [ ] Unable to determine MTDD
--- NOTE | 2021-01-06 11:32 | CDI ---
Documentation Clarification Form Date: 01/06/2021 11:15:00 AM From: Belle Paez Admit Date: 11/21/2020 10:46:00 PM Patient Name: Yvrose Norman Visit Number: [id number] Discharge Date: 11/30/2020 03:36:00 PM ATTENTION: The Clinical Documentation Specialists (CDI) and [facility] Coding Staff appreciate your assistance in clarifying documentation. Please respond to the clarification below the line at the bottom and electronically sign. The CDI & [facility] Coding staff will review the response and follow-up if needed. Please note: Queries are made part of the Legal Health Record. If you have any questions, please contact the author of this message via ITS. Dr. Aditya Joel The patient presented with a small bowel obstruction. Per DCS patient has sepsis with leukocytosis and tachycardia. Per DCS colitis has been ruled out and per query response from surgeon appendix was not ruptured. Please clarify the etiology of the sepsis. History/Risk Factors: SBO Clinical Indicators: WBC: 28.1 Vitals signs: 97.8 F, 101 bpm, 18, 133/64, 98% RA Treatment: Right colectomy Antibiotics: IV antibiotics discharged on Cipro In your professional opinion, please clarify the etiology of the sepsis [ ] Sepsis due to SBO [ x] Sepsis, due to inflammatory bowel condition [ ] SIRS, without underlying infectious process [ ] Other, please specify [ ] Unable to determine SIRS Criteria: 2 or more of the following may indicate SIRS -Temperature < 96.8F (36C) or > 101.0F (38.3C) -Heart Rate > 90 bpm -Respiratory Rate > 20 breaths/min or PaCO2 < 32 mmHg -White Blood Cell Count > 12,000 or < 4,000 cells/mm3 or > 10% bands MTDD
== END 2020-11-30 15:36 | disposition home or self-care (01) | DRG 854 ==
LOC: EC 18:25 → 5NMEDONC 22:46 → 6PED 11-25 09:01
PROVIDERS: ADMIT Internal Medicine Geriatric Medicine; ATTEND Internal Medicine Geriatric Medicine
PROC: 0DTF0ZZ Resection of Right Large Intestine, Open Approach (ICD-10-PCS; principal; 2020-11-23 07:30)
PROC: 0D9670Z Drainage of Stomach with Drainage Device, Via Natural or Artificial Opening (ICD-10-PCS; 2020-11-26)
DX: A41.9 Sepsis, unspecified organism (principal); K56.600 Partial intestinal obstruction, unspecified as to cause; T81.49XA Infection following a procedure, other surgical site, initial encounter; I10 Essential (primary) hypertension; Z20.822 Contact with and (suspected) exposure to COVID-19; Z79.899 Other long term (current) drug therapy; Z80.7 Family history of other malignant neoplasms of lymphoid, hematopoietic and related tissues; Z82.3 Family history of stroke; Z82.0 Family history of epilepsy and other diseases of the nervous system; Z85.828 Personal history of other malignant neoplasm of skin; Z87.891 Personal history of nicotine dependence; R19.7 Diarrhea, unspecified; Z87.19 Personal history of other diseases of the digestive system; Z91.011 Allergy to milk products; M19.90 Unspecified osteoarthritis, unspecified site
CPT/HCPCS: 36415; 64999; 74018; 74177; 80048; 80053; 81001; 84484; 85025; 87070; 87077; 87186; 87205; 87635; 88307; 93005; 96374; 99285

== ENCOUNTER → 2020-12-01 | Outpatient (CLI) | payer MEDICARE ==
[2020-12-01 22:10] LABS: Basophils # (A) 0.04 X 10*3/uL (0.00-0.10); Basophils % (A) 0.5 %; Eosinophils # (A) 0.27 X 10*3/uL (0.04-0.35); Eosinophils % (A) 3.1 %; HCT 32.4 % (37.2-46.3); HGB 9.9 g/dL (12.0-15.0); Lymphocytes # (A) 1.31 X 10*3/uL (0.90-5.00); Lymphocytes % (A) 15.3 %; MCHC 30.6 g/dL (32.0-37.0); MCV 98.2 fL (80.0-97.0); Mean Platelet Volume 9.6 fL (9.5-12.2); Monocytes # (A) 0.49 X 10*3/uL (0.20-1.00); Monocytes % (A) 5.7 %; Neutrophils # (A) 6.38 X 10*3/uL (1.80-7.70); Neutrophils % (A) 74.2 %; Platelet Count 649 X 10*3/uL (140-440); RDW 12.8 % (11.5-14.5); WBC 8.59 X 10*3/uL (4.50-10.00)
[2020-12-02 05:31] LABS: African American GFR (CKD) 117.7 (60.0-200.0); Anion Gap 11.5 mmol/L (4.00-12.00); Calcium 8.2 mg/dL (8.7-10.3); Carbon Dioxide 26.5 mmol/L (21.6-31.8); Non-African American GFR(CKD) 101.6 (60.0-200.0); Potassium 3.7 mmol/L (3.5-5.5)
== END | disposition home or self-care (01) ==
LOC: LABWHC1 13:20
PROVIDERS: ATTEND Nurse Practitioner Family
DX: T81.30XA Disruption of wound, unspecified, initial encounter (principal); E87.5 Hyperkalemia
CPT/HCPCS: 36415; 80048; 85025

== ENCOUNTER 2022-03-02 08:44 | Day surgery (SDC) | payer MEDICARE ==
[2022-03-01 09:24] VITALS: BMI 24.3
[~2022-03-02 08:44] MED LIST changes: +LACTATED RINGERS 1,000 ML IV SCH; +LIDOCAINE 1% (10MG/ML) FOR IV START INTRADERMA PRN; -LIDOCAINE 1% 20 ML VIAL (10MG/ML) FOR IV START INTRADERMA PRN; -ONDANSETRON 4 MG/2 ML VIAL IVP ONE; -Pre Op ABX Message 1 EACH MISC MISCELLANE ONE
[2022-03-02 09:19] VITALS: RESP 18; TEMP 97.9
[2022-03-02] MEDS ORDERED: PROPOFOL 10 MG/ML 20 ML VIAL IV ONE (10:18)
[2022-03-02] MEDS ORDERED: MIDAZOLAM 2 MG/2 ML VIAL ONE (10:18)
[2022-03-02] MEDS ORDERED: fentaNYL (PF) 50 MCG/ML 2 ML AMP ONE (10:18)
--- NOTE | 2022-03-02 10:44 | P.PCN ---
Date of Procedure: 03/02/22 Procedure(s) Performed: BRIEF HISTORY: Patient is a 66-year-old pleasant white female scheduled for an elective colonoscopy as a part of evaluation of your diagnosed Crohn's ileitis. Patient presented with small biopsy obstruction in October 2020 underwent terminal ileum and right colon resection abscesses which revealed Crohn's ileitis. Lately she is having 3-5 loose watery bowel movements daily. She is scheduled for a colonoscopy to assess for recurrent Crohn's ileitis PROCEDURE PERFORMED: Colonoscopy with biopsy. PREOPERATIVE DIAGNOSIS: History of Crohn's ileitis diagnosed in October 2020. IV sedation per Anesthesia. PROCEDURE: After informed consent was obtained, the patient, was brought into the endoscopy unit. IV sedation was administered by Anesthesia under continuous monitoring. Digital rectal examination was normal. Initially the Olympus CF-160 flexible video colonoscope was then inserted in the rectum, gradually advanced into the right colon with severe difficulty. Careful examination was performed as the scope was gradually being withdrawn. The ileocolic anastomosis was vis ualized which appeared narrowed with multiple ulcerations consistent with recurrent active Crohn's disease. Biopsies were done from this area. I could not advance the scope into the distal ileum. Will discuss Mucosa of the transverse colon, descending colon, sigmoid colon, and rectum appeared normal. Retroflexion was performed in the rectum and no lesions were seen. The patient tolerated the procedure well. IMPRESSION: RECOMMENDATIONS: Findings of this examination were discussed with the patient as well as her family. She was advised to follow with the biopsy results. She will continue with mesalamine orally and she'll be seen in office in 3-4 weeks.. We will discuss Biologics for recurrent Crohn's disease during her next office visit.
[2022-03-02 11:14] VITALS: BP 121/72; PULSE 78
== END 2022-03-02 11:23 | disposition home or self-care (01) ==
LOC: ORWHC2ENDO 08:44
PROVIDERS: ATTEND Internal Medicine Gastroenterology
DX: K50.00 Crohn's disease of small intestine without complications (principal); I10 Essential (primary) hypertension; Z90.49 Acquired absence of other specified parts of digestive tract; Z79.899 Other long term (current) drug therapy; Z91.011 Allergy to milk products; Z91.018 Allergy to other foods; Z87.891 Personal history of nicotine dependence; Z80.3 Family history of malignant neoplasm of breast; Z80.7 Family history of other malignant neoplasms of lymphoid, hematopoietic and related tissues; Z81.8 Family history of other mental and behavioral disorders; Z82.3 Family history of stroke
CPT/HCPCS: 88305; 45380; J2250; J3010; J2704

== ENCOUNTER → 2022-03-16 | Outpatient (CLI) | payer MEDICARE ==
[2022-03-16 22:36] LABS: Basophils # (A) 0.04 X 10*3/uL (0.00-0.10); Basophils % (A) 0.6 %; Eosinophils # (A) 0.22 X 10*3/uL (0.04-0.35); Eosinophils % (A) 3.4 %; HCT 42.8 % (37.2-46.3); HGB 13.9 g/dL (12.0-15.0); Immature Grans, Automated 0.5 %; Lymphocytes # (A) 1.38 X 10*3/uL (0.90-5.00); Lymphocytes % (A) 21.3 %; MCH 30.7 pg (27.0-32.0); MCHC 32.5 g/dL (32.0-37.0); MCV 94.5 fL (80.0-97.0); Mean Platelet Volume 10.2 fL (9.5-12.2); Monocytes # (A) 0.42 X 10*3/uL (0.20-1.00); Monocytes % (A) 6.5 %; NRBC Per 100 WBC 0 /100 WBCS (0.0-0.0); Neutrophils % (A) 67.7 %; Platelet Count 435 X 10*3/uL (140-440); RBC 4.53 X 10*6/uL (4.10-5.20); RDW 12.2 % (11.5-14.5); WBC 6.49 X 10*3/uL (4.50-10.00)
[2022-03-16 22:49] LABS: Albumin 4.5 g/dL (3.8-4.9); Albumin/Globulin Ratio 1.59 (1.60-3.17); Anion Gap 11.9 mmol/L (10.00-18.00); BUN/Creat Ratio 18.02 Ratio (12.00-20.00); Blood Urea Nitrogen 13.1 mg/dL (9.0-27.0); Calcium 9.9 mg/dL (8.7-10.3); Carbon Dioxide 24.5 mmol/L (20.0-27.5); Globulin 2.8 g/dL (1.6-3.3); Non-African American GFR(CKD) 86.3 (60.0-200.0); Potassium 4.1 mmol/L (3.5-5.5); Total Bilirubin 0.3 mg/dL (0.30-1.20); Total Protein 7.4 g/dL (6.2-8.2)
[2022-03-16 23:06] LABS: Hepatitis B Surface Antigen Nonreactive (Nonreactive)
== END | disposition home or self-care (01) ==
LOC: LABWHC1 14:44
PROVIDERS: ATTEND Internal Medicine Gastroenterology
DX: K50.00 Crohn's disease of small intestine without complications (principal)
CPT/HCPCS: 36415; 80053; 85025; 86480; 86704; 87340

== ENCOUNTER → 2023-11-09 | Outpatient (CLI) | payer MEDICARE ==
[2023-11-09 15:25] LABS: Basophils # (A) 0.03 X 10*3/uL (0.00-0.10); Basophils % (A) 0.6 %; Eosinophils # (A) 0.05 X 10*3/uL (0.04-0.35); HCT 41.3 % (37.2-46.3); HGB 13.4 g/dL (12.0-15.0); Lymphocytes # (A) 1.55 X 10*3/uL (0.90-5.00); Lymphocytes % (A) 30.2 %; MCH 30.8 pg (27.0-32.0); MCHC 32.4 g/dL (32.0-37.0); MCV 94.9 FL (80.0-97.0); Mean Platelet Volume 10.3 FL (9.5-12.2); Monocytes # (A) 0.32 X 10*3/uL (0.20-1.00); Monocytes % (A) 6.2 %; NRBC Per 100 WBC 0 X 10*3/uL (0.00-0.01); Neutrophils # (A) 3.17 X 10*3/uL (1.80-7.70); Neutrophils % (A) 61.8 %; Platelet Count 368 X 10*3/uL (140-440); RBC 4.35 X 10*6/uL (4.10-5.20); RDW 12.6 % (11.5-14.5); WBC 5.13 X 10*3/uL (4.50-10.00)
[2023-11-09 15:50] LABS: ALT 38 U/L (8-44); AST 21 U/L (13-35); Albumin 4.6 g/dL (3.8-4.9); Alkaline Phosphatase 71 U/L (41-126); BUN/Creat Ratio 22.14 Ratio (12.00-20.00); Blood Urea Nitrogen 15.5 mg/dL (9.0-27.0); Carbon Dioxide 22.8 mmol/L (21.6-31.8); Chloride 104 mmol/L (96-109); Globulin 2.7 g/dL (1.6-3.3); Glucose 83 mg/dL (70-110); Potassium 4.2 mmol/L (3.5-5.5); Sodium 139 mmol/L (135-145); Total Bilirubin 0.4 mg/dL (0.3-1.2); Total Protein 7.3 g/dL (6.2-8.2)
== END | disposition home or self-care (01) ==
LOC: LABWHC1 10:27
PROVIDERS: ATTEND Internal Medicine Gastroenterology
DX: K50.00 Crohn's disease of small intestine without complications (principal)
CPT/HCPCS: 36415; 80053; 85025

== ENCOUNTER 2023-11-21 01:35 | Emergency (ER) | payer MEDICARE ==
[2023-11-21 02:02] VITALS: RESP 16; TEMP 97.6
[2023-11-21 02:21] LABS: Basophils # (A) 0.1 k/uL (0-0.2); Basophils % (A) 1 %; Eosinophils # (A) 0.1 k/uL (0-0.7); Eosinophils % (A) 1 %; HCT 46.2 % (34.0-46.0); Lymphocytes # (A) 1.7 k/uL (1.0-4.8); Lymphocytes % (A) 24 %; MCH 31.6 pg (25.0-35.0); MCHC 32.6 g/dL (31.0-37.0); MCV 97.1 fL (80.0-100.0); Mean Platelet Volume 7.6; Monocytes # (A) 0.3 k/uL (0-1.0); Monocytes % (A) 5 %; Neutrophils # (A) 4.6 k/uL (1.3-7.7); Neutrophils % (A) 66 %; Platelet Count 351 k/uL (150-450); RBC 4.75 m/uL (3.80-5.40); RDW 12.3 % (11.5-15.5); WBC 6.9 k/uL (3.8-10.6)
[2023-11-21 02:34] LABS: ALT 50 U/L (4-34); AST 30 U/L (14-36); African American GFR (CKD) >90 (>60 ml/min/1.73 sqM); Albumin 4.9 g/dL (3.5-5.0); Alkaline Phosphatase 77 U/L (38-126); Amylase 78 U/L (30-110); Anion Gap 9 mmol/L; Blood Urea Nitrogen 20 mg/dL (7-17); Calcium 10.2 mg/dL (8.4-10.2); Carbon Dioxide 24 mmol/L (22-30); Chloride 107 mmol/L (98-107); Glucose 95 mg/dL (74-99); Lipase 213 U/L (23-300); Non-African American GFR(CKD) >90 (>60 ml/min/1.73 sqM); Potassium 4.5 mmol/L (3.5-5.1); Sodium 140 mmol/L (137-145); Total Bilirubin 0.4 mg/dL (0.2-1.3); Total Protein 8.3 g/dL (6.3-8.2)
--- NOTE | 2023-11-21 02:34 | ED ---
General Adult HPI - General Source: patient Mode of arrival: ambulatory Limitations: no limitations <Jordy Saez - Last Filed: 11/21/23 02:34> <Job Everett - Last Filed: 11/21/23 06:50> - General Chief complaint: Nausea/Vomiting/Diarrhea Stated complaint: Bowel blockage, Crohn's disease Time Seen by Provider: 11/21/23 02:27 - History of Present Illness Initial comments: 68-year-old female presented to the ED as she is concerned for bowel blockage. Patient notes history of Crohn's disease and notes history of prior bowel obstructions. Reports today started to develop some nausea and reports she has not had a regular bowel movement in "a while". (Jordy Saez) Dictation was produced using [employer] dictation software. please excuse any grammatical, word or spelling errors. Chief Complaint: 68-year-old female presents emergency department with constipation History of Present Illness: Patient 68-year-old female presents emergency department constipation. She states that she had a small bowel movement 2 days ago. She has not however had a bowel movement since then. Patient states she feels like she h is full. Denies any abdominal pain. She has past medical history of Crohn's disease. 2 years ago she had a crown surgery performed by one of our local surgeons. Denies any fever, chills or night sweats. Denies any nausea or vomiting. Patient has however had poor appetite. Patient tried taking some [id number] laxative with no improvement. The ROS documented in this emergency department record has been reviewed and confirmed by me. Those systems with pertinent positive or negative responses have been documented in the HPI. All other systems are other negative and/or noncontributory. (Job Everett) - Related Data Home Medications Medication Instructions Recorded Confirmed Losartan [Cozaar] 50 mg PO QAM 11/21/20 03/02/22 Mesalamine [Lialda] 3.6 gm PO QAM 03/01/22 03/02/22 Allergies Allergy/AdvReac Type Severity Reaction Status Date / Time avocado Allergy Nausea & Verified 11/21/23 01:40 Vomiting Milk Containing Products AdvReac Diarrhea Verified 11/21/23 01:40 (Dairy) [Dairy] Review of Systems ROS Other: All systems not noted in ROS Statement are negative. <Jordy Saez - Last Filed: 11/21/23 02:34> ROS Other: All systems not noted in ROS Statement are negative. <Job Everett - Last Filed: 11/21/23 06:50> ROS Statement: Those systems with pertinent positive or pertinent negative responses have been documented in the HPI. Past Medical History Past Medical History: Cancer, Hypertension, Osteoarthritis (OA) Additional Past Medical History / Comment(s): HX BASAL CELL CANCER. Chron's. History of Any Multi-Drug Resistant Organisms: None Reported Past Surgical History: Back Surgery, Bowel Resection, Cholecystectomy, Tonsillectomy Additional Past Surgical History / Comment(s): BILATERAL KNEE REPLACEMENTS. JAW SURGERY. Colonoscopy X3. Past Anesthesia/Blood Transfusion Reactions: Motion Sickness, Postoperative Naus ea & Vomiting (PONV) Additional Past Anesthesia/Blood Transfusion Reaction / Comment(s): Hx post op ileus. Past Psychological History: No Psychological Hx Reported Smoking Status: Former smoker Past Alcohol Use History: None Reported Past Drug Use History: None Reported - Past Family History Mother Family Medical History: Cancer, Dementia Father Family Medical History: Cancer Additional Family Medical History / Comment(s): Father at age 41 from Hodgkin's Lymphoma. Brother(s) Additional Family Medical History / Comment(s): Patient has 1 brother but has no contact with him. Patient has no sisters. Patient has 2 children with no major medical problems. <Jordy Saez - Last Filed: 11/21/23 02:34> General Exam Limitations: no limitations <Jordy Saez - Last Filed: 11/21/23 02:34> <Job Everett - Last Filed: 11/21/23 06:50> - General Exam Comments Initial Comments: Visual Physical Exam Vital signs reviewed General: Well-appearing, nontoxic, no acute distress. Head: Normocephalic, atraumatic Eyes: PERRLA, EOMI ENT: Airway patent Chest: Nonlabored breathing Skin: No visual rash, normal skin tone Neuro: Alert and oriented 3 Musculoskeletal: No gross abnormalities (Jordy Saez) PHYSICAL EXAM: General Impression: Alert and oriented x3, not in acute distress HEENT: Normocephalic atraumatic, extra-ocular movements intact, pupils equal and reactive to light bilaterally, mucous membranes moist. Cardiovascular: Heart regular rate and rhythm Chest: Able to complete full sentences, no retractions, no tachypnea Abdomen: abdomen soft, non-tender, non-distended, no organomegaly Musculoskeletal: Pulses present and equal in all extremities, no peripheral edema Motor: no focal deficits noted Neurological: CN II-XII grossly intact, no focal motor or sensory deficits noted Skin: Intact with no visualized rashes Psych: Normal affect and mood (Job Everett) Course Vital Signs 11/21/23 11/21/23 01:38 05:20 Temperature 97.6 F Pulse Rate 94 76 Respiratory 16 16 Rate Blood Pressure 178/109 136/78 O2 Sat by Pulse 96 98 Oximetry Medical Decision Making - Lab Data Result diagrams: 11/21/23 01:51 <Jordy Saez - Last Filed: 11/21/23 02:34> - Lab Data Result diagrams: 11/21/23 01:51 11/21/23 01:51 <Job Everett - Last Filed: 11/21/23 06:50> - Medical Decision Making Quicknote portion performed. Signed Jordy Saez PA-C (Jordy Saez) Was pt. sent in by a medical professional or institution ([facility], [employer], urgent care, hospital, or half-way...) When possible be specific @ -No Did you speak to anyone other than the patient for history (EMS, parent, family, police, friend...)? What history was obtained from this source @ -No Did you review nursing and triage notes (agree or disagree)? Why? @ -I reviewed and agree with nursing and triage notes Were old charts reviewed (outside hosp., previous admission, EMS record, old EKG, old radiological studies, urgent care reports/EKG's, half-way records)? Report findings @ -No old charts were reviewed Differential Diagnosis (chest pain, altered mental status, abdominal pain women, abdominal pain men, vaginal bleeding, musculoskeletal, weakness, fever, dyspnea, syncope, headache, dizziness, GI bleed, back pain, seizure, CVA, palpatations, mental health)? @ -Differential Abdominal Pain Women: Appendicitis, Cholecystitis, diverticulosis, ischemic bowel, pancreatitis, hepatitis, UTI, gastroenteritis, AAA, incarcerated hernia, bowel obstruction, constipation, inflammatory bowel, hepatitis, peptic ulcer disease, splenic infarction, perforated viscus, vulvitis, ovarian torsion, PID, kidney stone, placenta abruption, this is not meant to be an all-inclusive list EKG interpreted by me (3pts min.). @ -None done X-rays interpreted by me (1pt min.). @ -None done CT interpreted by me (1pt min.). @ -CT of the abdomen pelvis shows stool burden U/S interpreted by me (1pt. min.). @ -None done What testing was considered but not performed or refused? (CT, X-rays, U/S, labs)? Why? @ -None What meds were considered but not given or refused? Why? @ -None Did you discuss the management of the patient with other professionals (professionals i.e. , PA, EXPERIMENTAL DISPLAY BUILDER, lab, RT, psych nurse, psychologist social, camera engineer, teacher, campus police officer, onsite case manager)? Give summary @ -No Was smoking cessation discussed for >3mins.? @ -No Was critical care preformed (if so, how long)? @ -No Were there social determinants of health that impacted care today? How? (Homelessness, low income, unemployed, alcoholism, drug addiction, transportation, low edu. Level, literacy, decrease access to med. care, fpc, rehab)? @ -No Was there de-escalation of care discussed even if they declined (Discuss DNR or withdrawal of care, Hospice)? DNR status @ -No What co-morbidities impacted this encounter? (DM, HTN, Smoking, COPD, CAD, Cancer, CVA, ARF, Chemo, Hep., AIDS, mental health diagnosis, sleep apnea, morbid obesity)? @ -None Was patient admitted / discharged? Hospital course, mention meds given and route, prescriptions, significant lab abnormalities, going to OR and other perti nent info. @ -68-year-old female presents to the emergency department constipation. She has past medical history of Crohn's disease. Vital signs stable. Physical examination is benign. Patient well-appearing with a nonsurgical abdomen. Patient denies any abdominal pain whatsoever. Laboratory evaluation obtained. CBC metabolic panel is within acceptable limits. CT imaging shows stool burden in the colon. Radiology did mention that there is some wall thickening of the ileal small bowel loops concerning for enteritis. Patient given p.o. lavage. Patient started on some GoLytely. She is tolerating the GoLytely with no issues patient reevaluated at 6:30 AM. She is concerned that she might have worsening Crohn's disease. She was told by child guidance counselor that Crohn's was severe th at recent colonoscopy showed severe stricture causing GI specialist to stop the procedure. She lives 30 minutes away and is worried that if she gets he gets discharged and goes home that her symptoms might worsen. She did not want to commit to being admitted and wanted to wait for an hour or 2 to see if she has a bowel movement and feels better. Patient reevaluated at 6:50 AM states that she had a satisfying bowel movement that alleviated a lot of her symptoms. She did feel comfortable going home. She understands that her imaging studies suggest that there is a possibility that she has a developing bowel obstruction. She is given strict return precautions. Otherwise advised follow-up with primary care doctor. Undiagnosed new problem with uncertain prognosis? @ -No Drug Therapy requiring intensive monitoring for toxicity (Heparin, Nitro, Insulin, Cardizem)? @ -No Were any procedures done? @ -No Diagnosis/symptom? Acute, or Chronic, or Acute on Chronic? Uncomplicated (without systemic symptoms) or Complicated (systemic symptoms)? @ -Constipation Side effects of treatment? @ -No Exacerbation, Progression, or Severe Exacerbation? @ -No Poses a threat to life or bodily function? How? (Chest pain, USA, SC, pneumonia, PE, COPD, DKA, ARF, appy, cholecystitis, CVA, Diverticulitis, Homicidal, Suicidal, threat to staff... and all critical care pts) @ -No (Job Everett) - Lab Data Lab Results 11/21/23 11/21/23 11/21/23 Range/Units 01:51 01:51 01:51 WBC 6.9 (3.8-10.6) k/uL RBC 4.75 (3.80-5.40) m/uL Hgb 15.0 (11.4-16.0) gm/dL Hct 46.2 H (34.0-46.0) % MCV 97.1 (80.0-100.0) fL MCH 31.6 (25.0-35.0) pg MCHC 32.6 (31.0-37.0) g/dL RDW 12.3 (11.5-15.5) % Plt Count 351 (150-450) k/uL MPV 7.6 Neutrophils % 66 % Lymphocytes % 24 % Monocytes % 5 % Eosinophils % 1 % Basophils % 1 % Neutrophils # 4.6 (1.3-7.7) k/uL Lymphocytes # 1.7 (1.0-4.8) k/uL Monocytes # 0.3 (0-1.0) k/uL Eosinophils # 0.1 (0-0.7) k/uL Basophils # 0.1 (0-0.2) k/uL Sodium 140 (137-145) mmol/L Potassium 4.5 (3.5-5.1) mmol/L Chloride 107 (98-107) mmol/L Carbon Dioxide 24 (22-30) mmol/L Anion Gap 9 mmol/L BUN 20 H (7-17) mg/dL Creatinine 0.64 (0.52-1.04) mg/dL Est GFR (CKD-EPI)AfAm >90 (>60 ml/min/1.73 sqM) Est GFR (CKD-EPI)NonAf >90 (>60 ml/min/1.73 sqM) Glucose 95 (74-99) mg/dL Plasma Lactic Acid Raymond 1.7 (0.7-2.0) mmol/L Calcium 10.2 (8.4-10.2) mg/dL Total Bilirubin 0.4 (0.2-1.3) mg/dL AST 30 (14-36) U/L ALT 50 H (4-34) U/L Alkaline Phosphatase 77 (38-126) U/L Total Protein 8.3 H (6.3-8.2) g/dL Albumin 4.9 (3.5-5.0) g/dL Amylase 78 (30-110) U/L Lipase 213 (23-300) U/L Disposition <Jordy Saez - Last Filed: 11/21/23 02:34> Is patient prescribed a controlled substance at d/c from ED?: No Time of Disposition: 06:50 <Job Everett - Last Filed: 11/21/23 06:50> Clinical Impression: Constipation Disposition: HOME SELF-CARE Condition: Fair Instructions (If sedation given, give patient instructions): Constipation (ED) Referrals: Mak Hernandez MD [Primary Care Provider] - 1-2 days
--- NOTE | 2023-11-21 03:20 | CT ---
EXAM: CT Abdomen and Pelvis With Intravenous Contrast CLINICAL HISTORY: ITS.REASON CT Reason: bowel obstruction TECHNIQUE: Axial computed tomography images of the abdomen and pelvis with intravenous contrast. CTDI is 29.9 mGy and DLP is 916.2 mGy-cm. This CT exam was performed using one or more of the following dose reduction techniques: automated exposure control, adjustment of the mA and/or kV according to patient size, and/or use of iterative reconstruction technique. COMPARISON: CT abdomen/pelvis on 08/22/2019 FINDINGS: Lung bases: Unremarkable. No mass. No consolidation. ABDOMEN: Liver: Hepatomegaly. Gallbladder and bile ducts: Prior cholecystectomy. No ductal dilation. Pancreas: Unremarkable. No mass. No ductal dilation. Spleen: Unremarkable. No splenomegaly. Adrenals: Unremarkable. No mass. Kidneys and ureters: Unremarkable. No hydronephrosis or obstructing stone. Stomach and bowel: Large amount of stool in the colon. Wall thickening of the ileal small bowel loops, concerning for enteritis. Component of partial obstruction or ileus is not excluded. Evaluation of the stomach is limited by underdistention. Mild protrusion of bowel along the anterior abdominal wall. PELVIS: Appendix: Prior appendectomy. Bladder: Unremarkable. No mass. Reproductive: Unremarkable as visualized. ABDOMEN and PELVIS: Intraperitoneal space: Unremarkable. No free air. No significant fluid collection. Bones/joints: Postsurgical changes at L5-S1. Degenerative changes of the spine. No acute fracture. No dislocation. Soft tissues: Unremarkable. Vasculature: Unremarkable. No abdominal aortic aneurysm. Lymph nodes: Unremarkable. No enlarged lymph nodes. IMPRESSION: 1. Large amount of stool in the colon. 2. Wall thickening of the ileal small bowel loops, concerning for enteritis. Component of partial obstruction or ileus is not excluded.
[2023-11-21] MEDS: PEG 3350 (236 GM/BTL) + LYTES 4,000 ML BOTTLE PO ONE (05:36)
[2023-11-21 06:00] VITALS: BP 136/78; PULSE 76
== END 2023-11-21 06:54 | disposition home or self-care (01) ==
LOC: EC 01:35
DX: K59.00 Constipation, unspecified (principal); Z87.891 Personal history of nicotine dependence; Z91.011 Allergy to milk products; Z88.8 Allergy status to other drugs, medicaments and biological substances
CPT/HCPCS: 36415; 74177; 80053; 82150; 83605; 83690; 85025; 99284

== ENCOUNTER → 2024-11-11 | Outpatient (CLI) | payer MEDICARE ==
[2024-11-11 15:31] LABS: Basophils # (A) 0.03 X 10*3/uL (0.00-0.10); Basophils % (A) 0.5 %; Eosinophils # (A) 0.05 X 10*3/uL (0.04-0.35); Eosinophils % (A) 0.9 %; HCT 41.7 % (37.2-46.3); HGB 13.2 g/dL (12.0-15.0); Lymphocytes # (A) 1.14 X 10*3/uL (0.90-5.00); MCH 30.1 pg (27.0-32.0); MCHC 31.7 g/dL (32.0-37.0); Monocytes % (A) 5.3 %; NRBC Per 100 WBC 0 X 10*3/uL (0.00-0.01); Neutrophils # (A) 4.16 X 10*3/uL (1.80-7.70); Neutrophils % (A) 72.9 %; Platelet Count 414 X 10*3/uL (140-440); RBC 4.39 X 10*6/uL (4.10-5.20); RDW 12.8 % (11.5-14.5)
[2024-11-11 15:53] LABS: ALT 42 U/L (8-44); AST 27 U/L (13-35); Albumin 4.3 g/dL (3.8-4.9); Albumin/Globulin Ratio 1.65 Ratio (1.60-3.17); Alkaline Phosphatase 104 U/L (41-126); BUN/Creat Ratio 19.12 Ratio (12.00-20.00); Blood Urea Nitrogen 15.3 mg/dL (9.0-27.0); C Reactive Protein <0.30 mg/dL (0.00-0.80); Calcium 9.5 mg/dL (8.7-10.3); Carbon Dioxide 22.5 mmol/L (21.6-31.8); Chloride 108 mmol/L (96-109); Globulin 2.6 g/dL (1.6-3.3); Glucose 86 mg/dL (70-110); Potassium 3.7 mmol/L (3.5-5.5); Sodium 143 mmol/L (135-145); Total Bilirubin 0.4 mg/dL (0.3-1.2); Total Protein 6.9 g/dL (6.2-8.2)
[2024-11-11 16:10] LABS: Erythrocyte Sedimentation Rate 28 mm/Hr (0-30)
== END | disposition home or self-care (01) ==
LOC: LABWHC1 08:50
PROVIDERS: ATTEND Nurse Practitioner Family
DX: K50.00 Crohn's disease of small intestine without complications (principal)
CPT/HCPCS: 36415; 80053; 85025; 85652; 86140